=== PATIENT | female | born 1930 | race Caucasian/White ===

== ENCOUNTER 2018-03-22 06:55 | Inpatient (IN) ==
[2018-03-22] MEDS: Sod Chloride 0.9% Inj 1,000 ML IV.CONT SCH ×3 (07:00→22:05)
--- NOTE | 2018-03-22 07:13 | ED ---
HPI General Chief complaint: Stroke Alert Stated complaint: Medical Time Seen by Provider: 03/22/18 06:56 History of Present Illness HPI narrative: patient is an 87 year old female apparently with a history of dementia presents to the Emergency Department as a stroke alert last seen normal last night around midnight. She presented to the emergency department with dense aphasia and right sided deficits with neglect. She is very hypertensive as well. Additional history limited by patient's aphasia. Related Data Home Medications Medication Instructions Recorded Confirmed amlodipine [Norvasc] 2.5 mg PO DAILY 03/22/18 03/22/18 benztropine 0.5 mg PO BID 03/22/18 03/22/18 donepezil 10 mg PO DAILY 03/22/18 03/22/18 furosemide [Lasix] 40 mg PO DAILY 03/22/18 03/22/18 lurasidone [Latuda] 120 mg PO DAILY 03/22/18 03/22/18 melatonin 3 mg PO HS 03/22/18 03/22/18 memantine [Namenda XR] 14 mg PO DAILY 03/22/18 03/22/18 omeprazole 20 mg PO DAILY 03/22/18 03/22/18 potassium chloride [Klor-Con 10] 10 meq PO DAILY 03/22/18 03/22/18 Allergies Allergy/AdvReac Type Severity Reaction Status Date / Time No Known Allergies Allergy Verified 03/22/18 06:59 Review of Systems ROS Unobtainable ROS Unobtainable: unobtainable due to mental condition PMFSH Surgical History Surgical History History of bladder surgery (Acute) Social History Social History Substance History: No History of Abuse Second Hand Smoke Exposure: No Smoking Status: Never smoker How Often Do You Have a Drink Containing Alcohol: Never Recent Travel in [facility] within the Last 8 Weeks: No Recent Out of Country Travel within the Last 8 Weeks: No Exam Narrative Exam Narrative: GENERAL: Well-developed well-nourished female a phasic. SKIN: Focused skin assessment warm/dry. HEAD: Atraumatic. Normocephalic. EYES: Pupils equal and round. No scleral icterus. No injection or drainage. ENT: No nasal bleeding or discharge. Mucous membranes pink and moist. NECK: Trachea midline. No JVD. CARDIOVASCULAR: Regular rate and rhythm. No murmur appreciated. RESPIRATORY: No accessory muscle use. Clear to auscultation. Breath sounds equal bilaterally. GASTROINTESTINAL: Abdomen soft, non-tender, nondistended. Hepatic and splenic margins not palpable. MUSCULOSKELETAL: No obvious deformities. No clubbing. No cyanosis. No edema. NEUROLOGICAL: Awake and I think she is alert and appears to try to communicate when discussing her plan of care. Patient has dense deficits on the right upper and right lower extremity and she has no effort against gravity for either. She is completely a phasic except for some groans. She does follow commands in the left upper and left lower extremity. She certainly seems to make neglecting the right side. She has no gaze palsy, she does have some right -sided facial droop. PSYCHIATRIC: Appropriate mood and affect; insight and judgment normal. Course Initial Documented Vital Signs Temperature 97.8 F 03/22/18 06:56 Pulse Rate 84 03/22/18 06:56 Respiratory Rate 17 03/22/18 06:56 Blood Pressure 200/103 H 03/22/18 06:56 Pulse Oximetry 96 03/22/18 06:56 Last Documented Vital Signs Temperature 97.7 F 03/22/18 07:30 Pulse Rate 89 03/22/18 07:30 Respiratory Rate 18 03/22/18 07:30 Blood Pressure 180/89 H 03/22/18 07:30 Pulse Oximetry 96 03/22/18 07:30 Critical Care Time Critical Care Time: Yes Total Critical Care Time: 35 Attestation: Aggregate critical care time was 35 minutes. Time to perform other separately billable procedures was not included in the critical care time. My time did not include minutes spent treating any other patients simultaneously or on activities that did not directly contribute to the patient's treatment. The services I provided to this patient were to treat and/or prevent clinically significant deterioration that could result in: , disability, organ failure I provided critical care services requiring my management, as noted below: Chart data review, documentation time, medication orders and management, vital sign assessments/reviewing monitor data, ordering and reviewing lab tests, ordering and interpreting/reviewing x-rays and diagnostic studies, care of the patient and discussion of the patient with the admitting physicians. NIH Stroke Scale NIH Stroke Scale Level of Consciousness: 1-Drowsy Orientation Questions: 2-Neither task correct Responds to Commands: 1-One task correct Gaze Eye Movement: 0-Horizontal movement WNL Visual [place]: 0-No visual field defect Facial Movement: 2-Partial facial palsy Motor Functions Arm LEFT: 1-Drift before 10 seconds Motor Functions Arm RIGHT: 3-No effort against gravity Motor Functions Leg LEFT: 1-Drift before 5 seconds Motor Functions Leg RIGHT: 3-No effort against gravity Limb Ataxia: 0-No ataxia Sensory Loss: 0-No sensory loss Best Language: 3-Mute or global aphasia Articulation: 2-Severe dysarthria Extinction or Inattention Sensory: 1-Loss 1 sensory modality Total: 20 Medical Decision Making MDM Narrative Medical decision making narrative: Patient is an 87 year old female presents to the ER, as stroke alert. Patient taken emergently to CT. She has subacute ischemic stroke in the left temporal parietal area c/w symptoms. Unfortunately not a candidate for systemic TPA and d/w Dr. Vega who agrees. Spoke with Dr. Vega at 0750, patient is not a candidate for any intervention currently. There is not enough salvageable area on CT perfusion and she only has distal occlusions. Permissive hypertension per Dr. Vega. WI aspirin added. Will admit to ICU. The patient is an aspiration risk, aspirin 600 mg was given WI, she started on 70 cc an hour of normal saline. Her daughter arrives and I informed her that the patient has had a stroke and will require aggressive physical therapy and occupational therapy and speech therapy. In the short-term I think is reasonable for her to go to the ICU for the night and discussed with Dr. Santos. I do believe she is an aspiration risk. For the time being I think it is in her benefit to not be intubated so that she can continue to be assessed neurologically Shortly after discussion with daughter was noted the patient does have some effort on her right upper extremity at the shoulder but still no structural welder strength at all. Medical Screen Exam Complete: Yes Emergency Medical Condition: Yes Lab Data Result diagrams: 03/22/18 07:00 Lab Results 03/22/18 03/22/18 03/22/18 Range/Units 06:58 07:00 07:00 WBC 14.8 H (4.0-11.0) th/mm3 RBC 4.35 (4.00-5.30) mil/mm3 Hgb 13.1 (11.6-15.3) gm/dL POC Hgb (Calc) (11.6-15.3) g/dL Hct 39.7 (35.0-46.0) % POC Hct (35-46.0) % MCV 91.3 (80.0-100.0) fL MCH 30.2 (27.0-34.0) pg MCHC 33.0 (32.0-36.0) % RDW 13.5 (11.6-17.2) % Plt Count 233 (150-450) th/mm3 MPV 8.5 (7.0-11.0) fL Neut % (Auto) 85.9 H (16.0-70.0) % Lymph % (Auto) 6.4 L (9.0-44.0) % [place] % (Auto) 7.2 (0.0-8.0) % Eos % (Auto) 0.0 (0.0-4.0) % Baso % (Auto) 0.5 (0.0-2.0) % Neut # (Auto) 12.7 H (1.8-7.7) th/mm3 Lymph # (Auto) 0.9 L (1.0-4.8) th/mm3 [place] # (Auto) 1.1 H (0.0-0.9) th/mm3 Eos # (Auto) 0.0 (0.0-0.4) th/mm3 Baso # (Auto) 0.1 (0.0-0.2) th/mm3 WBC Differential . Differential Comment Auto diff final PT 10.3 (9.8-11.6) sec INR 1.0 Ratio APTT 22.6 L (23.4-31.7) sec Fibrinogen 410 H (227-377) mg/dL POC Sodium (137-144) mmol/L POC Potassium (3.6-5.0) mmol/L POC Chloride (102-111) mmol/L POC BUN (5-21) mg/dL POC Creatinine (0.6-1.3) mg/dL POC Glucose 112 H (68-110) mg/dl Total Creatine Kinase (26-192) U/L CK-MB (CK-2) (0.5-3.6) ng/mL CK-MB (CK-2) % (0.0-4.0) % Troponin I (0.02-0.05) ng/mL Blood Type Blood Type Recheck Antibody Screen 03/22/18 03/22/18 Range/Units 07:00 07:00 WBC (4.0-11.0) th/mm3 RBC (4.00-5.30) mil/mm3 Hgb (11.6-15.3) gm/dL POC Hgb (Calc) 13.3 (11.6-15.3) g/dL Hct (35.0-46.0) % POC Hct 39.0 (35-46.0) % MCV (80.0-100.0) fL MCH (27.0-34.0) pg MCHC (32.0-36.0) % RDW (11.6-17.2) % Plt Count (150-450) th/mm3 MPV (7.0-11.0) fL Neut % (Auto) (16.0-70.0) % Lymph % (Auto) (9.0-44.0) % [place] % (Auto) (0.0-8.0) % Eos % (Auto) (0.0-4.0) % Baso % (Auto) (0.0-2.0) % Neut # (Auto) (1.8-7.7) th/mm3 Lymph # (Auto) (1.0-4.8) th/mm3 [place] # (Auto) (0.0-0.9) th/mm3 Eos # (Auto) (0.0-0.4) th/mm3 Baso # (Auto) (0.0-0.2) th/mm3 WBC Differential Differential Comment PT (9.8-11.6) sec INR Ratio APTT (23.4-31.7) sec Fibrinogen (227-377) mg/dL POC Sodium 144 (137-144) mmol/L POC Potassium 4.2 (3.6-5.0) mmol/L POC Chloride 107 (102-111) mmol/L POC BUN 17 (5-21) mg/dL POC Creatinine 1.0 (0.6-1.3) mg/dL POC Glucose 129 H (68-110) mg/dl Total Creatine Kinase 518 H (26-192) U/L CK-MB (CK-2) 7.0 H (0.5-3.6) ng/mL CK-MB (CK-2) % 1.4 (0.0-4.0) % Troponin I 0.06 H (0.02-0.05) ng/mL Blood Type A Negative Blood Type Recheck Required Antibody Screen Negative Imaging Data Radiologist's impression: Chest X-Ray 03/22/18 06:57 CONCLUSION: No evidence of acute cardiopulmonary process. Head CT 03/22/18 06:57 CONCLUSION: 1. Left temporoparietal hypodensity characteristic of a nonhemorrhagic infarct 2. Aging brain with generalized volume loss and chronic ischemic white matter changes. 3. No significant mass effect. Report called by Dr. Stuart to Dr. Fuentes at 720. Head CTA 03/22/18 06:57 CONCLUSION: No evidence of proximal MCA occlusion or filling defect. Report was called by [Dr. Stuart to Dr. Vega at 750. ] Neck CTA 03/22/18 06:57 CONCLUSION: 1. Nearly nondiagnostic CTA examination due to suboptimal contrast administration following infiltration of patient's IV line. 2. There is very minimal atherosclerotic plaque involving the arch and left carotid bulb. The carotid and vertebral arteries appear grossly patent. CT CAD 03/22/18 07:05 CONCLUSION: Physiological brain perfusion parameters with RAPID analysis as above. The decision for consideration of therapy is multi factorial and multi disciplinary relying on subjective and objective clinical data. This data is not construed or intended to be the sole determinant of treatment eligibility. Discharge Plan Discharge Disposition Patient Disposition: ED Admit(ED Internal Use Only) Discharge Order Discharge Orders: ED Use Only Admit Order (Routine); Ordered 03/22/18 Ordered By: Micah Fuentes Discharge Details Diagnosis: Acute ischemic stroke Physicians Team ED Provider: Micah Fuentes Primary Care Provider: Donavon Monsalve Attending Provider: Daniel Santos Other Providers: [facility],Agency Discharge Interventions Interventions: Vital Signs Last Done: 03/22/18 07:30 Discharge Planning - Case Management Last Done: 03/22/18 08:47 Status ED Status: Admitted Patient
[2018-03-22 07:22] LABS: Baso # (Auto) 0.1 th/mm3 (0.0-0.2); Baso % (Auto) 0.5 % (0.0-2.0); Hematocrit 39.7 % (35.0-46.0); Hemoglobin 13.1 gm/dL (11.6-15.3); Lymph # (Auto) 0.9 th/mm3 (1.0-4.8); Lymph % (Auto) 6.4 % (9.0-44.0); Mean Corpuscular Hemoglobin 30.2 pg (27.0-34.0); Mean Corpuscular Volume 91.3 fL (80.0-100.0); Mean Platelet Volume 8.5 fL (7.0-11.0); Mono # (Auto) 1.1 th/mm3 (0.0-0.9); Mono % (Auto) 7.2 % (0.0-8.0); Neut # (Auto) 12.7 th/mm3 (1.8-7.7); Neut % (Auto) 85.9 % (16.0-70.0); Platelet Count 233 th/mm3 (150-450); Red Blood Count 4.35 mil/mm3 (4.00-5.30); Red Cell Distribution Width 13.5 % (11.6-17.2); White Blood Count 14.8 th/mm3 (4.0-11.0)
--- NOTE | 2018-03-22 07:27 | CT ---
EXAM DATE: 03/22/2018 7:12 AM EST AGE/SEX: 87 years / Female INDICATIONS: Stroke alert, right side weakness, aphasia. CLINICAL DATA: This is the patient's initial encounter. Patient reports that signs and symptoms have been present for 1 day and indicates a pain score of Nonresponsive. MEDICAL/SURGICAL HISTORY: Non-responsive. Non-responsive. RADIATION DOSE: 56.35 CTDI (mGy) COMPARISON: [facility], CTA HEAD W CONTRAST W 3D, 03/22/2018. . TECHNIQUE: CT of the head without contrast. Using automated exposure control and adjustment of the mA and/or kV according to patient size, radiation dose was kept as low as reasonably achievable to ob tain optimal diagnostic quality images. DICOM format image data is available electronically for revi ew and comparison. FINDINGS: Cerebrum: A moderate sized to large area of hypodensity has developed within the left temporoparieta l region. There is sulcal effacement but no other significant mass effect. There is no evidence of ac carol hemorrhage. Periventricular hypodensity is seen bilaterally throughout the cerebral hemispheres. Generalized volume loss characteristic of an aging brain is noted. Posterior Fossa: The cerebellum and brainstem are intact. The 4th ventricle is midline. The cerebe llopontine angle is unremarkable. Extracranial: The visualized portion of the orbits is intact. Skull: The calvaria is intact. No evidence of skull fracture. CONCLUSION: 1. Left temporoparietal hypodensity characteristic of a nonhemorrhagic infarct 2. Aging brain with generalized volume loss and chronic ischemic white matter changes. 3. No significant mass effect. Report called by Dr. Stuart to Dr. Fuentes at 720. Electronically signed by: Chance Stuart MD 03/22/2018 7:26 AM EST
[2018-03-22 07:37] LABS: Activated Partial Thrombo Time 22.6 sec (23.4-31.7)
[2018-03-22 07:40] LABS: Prothrombin Time 10.3 sec (9.8-11.6)
[2018-03-22 07:41] LABS: Troponin I 0.06 ng/mL (0.02-0.05)
--- NOTE | 2018-03-22 07:45 | CT ---
EXAM DATE: 03/22/2018 7:29 AM EST AGE/SEX: 87 years / Female INDICATIONS: Stroke alert, right side weakness, aphasia. CLINICAL DATA: This is the patient's initial encounter. Patient reports that signs and symptoms have been present for 1 day and indicates a pain score of Nonresponsive. MEDICAL/SURGICAL HISTORY: Non-responsive. Non-responsive. RADIATION DOSE: 217.64 CTDI (mGy) COMPARISON: [facility] [place]/O CONTRAST, 03/22/2018. . TECHNIQUE: CT of the head after intravenous administration of 40 ml Visipaque 320 (iodixanol) nonio chely water-soluble contrast as a single exam dose. Using automated exposure control and adjustment of the mA and/or kV according to patient size, radiation dose was kept as low as reasonably achievable to obtain optimal diagnostic quality images. DICOM format image data is available electronically for review and comparison. FINDINGS: 1. CBF (<30%) Volume (ml): 14ml 2. Perfusion (Tmax>6.0s) Volume (ml): 30ml 3. Mismatch Volume (ml) (Tmax>6.0 - CBF): 16ml CONCLUSION: Physiological brain perfusion parameters with RAPID analysis as above. The decision for consideration of therapy is multi factorial and multi disciplinary relying on subjec tive and objective clinical data. This data is not construed or intended to be the sole determinant of treatment eligibility. Electronically signed by: Chance Stuart MD 03/22/2018 7:44 AM EST
[2018-03-22 07:53] LABS: CKMB Percent 1.4 % (0.0-4.0)
--- NOTE | 2018-03-22 07:53 | CT ---
EXAM DATE: 03/22/2018 7:35 AM EST AGE/SEX: 87 years / Female INDICATIONS: Stroke alert, right side weakness, aphasia. CLINICAL DATA: This is the patient's initial encounter. Patient reports that signs and symptoms have been present for 1 day and indicates a pain score of 10/10. MEDICAL/SURGICAL HISTORY: Non-responsive. Non-responsive. RADIATION DOSE: 9.64 CTDI (mGy) ; Combined studies COMPARISON: No prior exams available for comparison. TECHNIQUE: Volumetric scanning was performed using a multirow detector CT scanner during bolus infus ion of 60 ml Visipaque 320 (iodixanol) nonionic water-soluble contrast as a cumulative dose for mult iple exams. The data was postprocessed with a variety of visualization algorithms including full-vo lume maximum intensity projection, multiplanar sliding thin-slab reformation, curved-planar reformati on, and surface-rendering techniques. Using automated exposure control and adjustment of the mA and/ or kV according to patient size, radiation dose was kept as low as reasonably achievable to obtain op timal diagnostic quality images. DICOM format image data is available electronically for review and comparison. Percent stenosis is calculated using the diameter of the stenotic region over the diameter of the nor mal distal internal carotid artery. FINDINGS: Patient's IV line infiltrated resulting in very limited IV contrast administration and nearly nondiag nostic arterial opacification. There is standard 3 vessel arch anatomy with minimal calcified plaque in the arch and origin of the left subclavian artery. Overall, there is very limited calcified plaque primarily in the left carotid bulb. The carotid arteries appear grossly patent. Similarly, the verte bral arteries appear grossly patent without significant atherosclerotic plaque. Scattered subcentimet er level 2 and 3 nodes without necrotic adenopathy. Thyroid appears unremarkable by CT. Visualized joss ng apices demonstrate senescent changes without significant focal abnormality. Multilevel degenerativ e spondylosis of the lower cervical spine without significant focal lytic or blastic bony lesions. CONCLUSION: 1. Nearly nondiagnostic CTA examination due to suboptimal contrast administration following infiltra tion of patient's IV line. 2. There is very minimal atherosclerotic plaque involving the arch and left carotid bulb. The caroti d and vertebral arteries appear grossly patent. Electronically signed by: Gus Glover MD 03/22/2018 7:51 AM EST
--- NOTE | 2018-03-22 07:53 | CT ---
EXAM DATE: 03/22/2018 7:33 AM EST AGE/SEX: 87 years / Female INDICATIONS: Stroke alert, right side weakness, aphasia. CLINICAL DATA: This is the patient's initial encounter. Patient reports that signs and symptoms have been present for 1 day and indicates a pain score of Nonresponsive. MEDICAL/SURGICAL HISTORY: Non-responsive. Non-responsive. RADIATION DOSE: 9.64 CTDI (mGy) ; Combined studies COMPARISON: [facility] – [place], CT HEAD W/O CONTRAST, 03/22/2018. . TECHNIQUE: Volumetric scanning was performed using a multi-row detector CT scanner during bolus infu jose of 60 ml Visipaque 320 (iodixanol) nonionic water-soluble contrast as a single exam dose. The data was post processed with a variety of visualization algorithms including full volume maximum int ensity projection, multi-planar sliding thin slab reformation, curved planar reformation, and surface rendering techniques. Using automated exposure control and adjustment of the mA and/or kV according to patient size, radiation dose was kept as low as reasonably achievable to obtain optimal diagnosti c quality images. DICOM format image data is available electronically for review and comparison. FINDINGS: There is suboptimal visualization of the major intracranial arteries out to the second-order branch v essels due to IV infiltration. The proximal vessel are satisfactorily visualized. There is no evidenc e of proximal MCA occlusion or filling defect. Asymmetry is identified in the M2 and M3 branches with decreased flow identified on the left. CONCLUSION: No evidence of proximal MCA occlusion or filling defect. Report was called by [Dr. Stuart to Dr. Vega at 750. ] Electronically signed by: Chance Stuart MD 03/22/2018 7:52 AM EST
--- NOTE | 2018-03-22 08:17 | XR ---
EXAM DATE: 03/22/2018 8:14 AM EST AGE/SEX: 87 years / Female INDICATIONS: Stroke alert. CLINICAL DATA: This is the patient's initial encounter. Patient reports that signs and symptoms have been present for 1 day and indicates a pain score of Nonresponsive. MEDICAL/SURGICAL HISTORY: Non-responsive. Non-responsive. COMPARISON: No prior exams available for comparison. FINDINGS: A single AP view of the chest demonstrates the lungs to be symmetrically aerated without evidence of mass, infiltrate or effusion. The cardiomediastinal contours are unremarkable. Osseous structures a re intact. CONCLUSION: No evidence of acute cardiopulmonary process. Electronically signed by: Chance Stuart MD 03/22/2018 8:16 AM EST
[2018-03-22] MEDS ORDERED: Aspirin 300 MG Supp RECTAL ONE (08:30)
[2018-03-22] MEDS ORDERED: Bisacodyl 10 MG Supp RECTAL PRN (08:30)
[2018-03-22 09:20] LABS: Bilirubin,Urine Negative (Negative); Calcium Oxalate Crystals,Urine Few /hpf; Clarity,Urine Hazy (Clear); Color,Urine Yellow (Yellw/Straw); Glucose,Urine (UA) Negative (Negative); Hyaline Casts,Urine 1 /lpf (0-3); Leukocyte Esterase,Urine Negative (Negative); Mucus,Urine Few /lpf (Occasional); Nitrite,Urine Negative (Negative); Specific Gravity,Urine 1.034 (1.002-1.035)
[2018-03-22 09:33] LABS: Amphetamine Screen,Urine Neg (Neg); Barbiturate Screen,Urine Neg (Neg); Cannabinoid Screen,Urine Neg (Neg); Cocaine Screen,Urine Neg (Neg)
--- NOTE | 2018-03-22 09:33 | P.HPCC ---
History of Present Illness Service: Critical care Primary Care Physician: Donavon Monsalve DO Chief Complaint: Acute right-sided weakness and aphasia History of Present Illness: The patient is an 87 year old female with past medical history significant for history of dementia, Parkinson's disease, hypertension, hypothyroidism who presented to the Emergency Department as a stroke alert. Patient was last seen normal around midnight. Presented with complaints of aphasia and right hemiparesis. A stat CT of the head showed Left temporoparietal hypodensity indicating ischemic infarct. CT perfusion study and CT angiograms of head and neck were unremarkable. Patient was out of TPA window. Neurology Dr. Vega was consulted who recommended conservative management with aspirin and permissive hypertension. I evaluated the patient in the emergency department. Daughter is at the bedside. Patient is unable to give much history. She is aphasic at this time protecting airway however mental status is somewhat concerning. Patient continues to have right hemiparesis. I encouraged daughter to consider the DNR. Patient has a living will stating no life prolonging measures in case of a terminal condition. Given her dementia and limited mobility the stroke could be terminal for her. I have also consulted palliative care to assist with goals of care - Diagnosis (1) Right hemiparesis (2) Aphasia (3) Leukocytosis (4) Parkinson disease (5) Dementia (6) Hypertension (7) Schizophrenia (8) Hypothyroidism Inpatient Certification: I certify that the inpatient services were ordered in accordance with Medicare regulations governing the order. This includes certification that hospital inpatient services are reasonable and necessary and in the case of services not specified as inpatient-only under 42 CFR 419.22(n), that they are appropriately provided as inpatient services in accordance to with the 2-midnight benchmark under 43 CFR 412.3(e) Estimated Total Length of Stay (Days): 5 Plans for Post Hospital Care: Not yet determined Review of Systems unobtainable due to mental condition PMFSH - History History Provided By: Family Member - Medical History Medical History: Medical History (Last Reviewed 03/22/18 @ 09:23 by Daniel Santos MD) Dementia GERD (gastroesophageal reflux disease) HBP (high blood pressure) Hypothyroidism Parkinson disease Schizophrenia - Surgical History Surgical History: Surgical History (Last Updated 03/22/18 @ 08:06 by Shruti Young) History of bladder surgery - Tobacco History Second Hand Smoke Exposure: No Tobacco Use In Past 30 Days: No Smoking Status: Never smoker - Alcohol History How Often Do You Have a Drink Containing Alcohol: Never - Substance Use History Substance History: No History of Abuse - Travel History Recent Travel in the [place] Within the Last 8 Weeks: No Recent Travel Out of the Country Within the Last 8 Weeks: No - Immunization History Tetanus Immunization: >5 Years Medications and Allergies Active Medications: Active Medications Albuterol (Duoneb Neb (Prn)) 1 ampul NEB Q2HR NEB PRN PRN Reason: WHEEZING Bisacodyl (Dulcolax Supp) 10 mg RECTAL DAILY PRN PRN Reason: SEVERE CONSITIPATION Chlorhexidine Gluconate (Chlorhexidine 2% Cloth) 3 pack TOPICAL DAILY@0400 HARSH Stop: 03/28/18 03:59 Chlorhexidine Gluconate (Chlorhexidine 2% Cloth) 3 pack TOPICAL DAILY@0400 PRN PRN Reason: Extra cloth needed Stop: 03/28/18 03:59 Famotidine (Pepcid Pf Inj) 20 mg IV.PUSH Q12HR HARSH Sodium Chloride (Ns Inj) 1,000 mls @ 70 mls/hr IV.CONT .[id number] HARSH Last Admin: 03/22/18 07:00 Dose: 70 mls/hr Sodium Chloride (Ns Flush) 2 ml IV.FLUSH BID HARSH Sodium Chloride (Ns Flush) 2 ml IV.FLUSH PRN PRN PRN Reason: FLUSH AFTER USING IV ACCESS Allergies Allergy/AdvReac Type Severity Reaction Status Date / Time No Known Allergies Allergy Verified 03/22/18 06:59 Home Medications Medication Instructions Recorded Confirmed Type amlodipine [Norvasc] 2.5 mg PO DAILY 03/22/18 03/22/18 History benztropine 0.5 mg PO BID 03/22/18 03/22/18 History donepezil 10 mg PO DAILY 03/22/18 03/22/18 History furosemide [Lasix] 40 mg PO DAILY 03/22/18 03/22/18 History lurasidone [Latuda] 120 mg PO DAILY 03/22/18 03/22/18 History melatonin 3 mg PO HS 03/22/18 03/22/18 History memantine [Namenda XR] 14 mg PO DAILY 03/22/18 03/22/18 History omeprazole 20 mg PO DAILY 03/22/18 03/22/18 History potassium chloride [Klor-Con 10] 10 meq PO DAILY 03/22/18 03/22/18 History Results - Labs CBC & Chem 7: 03/22/18 07:00 Labs: Short CBC 03/22/18 Range/Units 07:00 WBC 14.8 H (4.0-11.0) th/mm3 Hgb 13.1 (11.6-15.3) gm/dL Hct 39.7 (35.0-46.0) % Plt Count 233 (150-450) th/mm3 Cardiac Enzymes 03/22/18 Range/Units 07:00 Total Creatine Kinase 518 H (26-192) U/L CK-MB (CK-2) 7.0 H (0.5-3.6) ng/mL Troponin I 0.06 H (0.02-0.05) ng/mL - Imaging Impressions Chest X-Ray 03/22/18 06:57 CONCLUSION: No evidence of acute cardiopulmonary process. Head CT 03/22/18 06:57 CONCLUSION: 1. Left temporoparietal hypodensity characteristic of a nonhemorrhagic infarct 2. Aging brain with generalized volume loss and chronic ischemic white matter changes. 3. No significant mass effect. Report called by Dr. Stuart to Dr. Fuentes at 720. Head CTA 03/22/18 06:57 CONCLUSION: No evidence of proximal MCA occlusion or filling defect. Report was called by [Dr. Stuart to Dr. Vega at 750. ] Neck CTA 03/22/18 06:57 CONCLUSION: 1. Nearly nondiagnostic CTA examination due to suboptimal contrast administration following infiltration of patient's IV line. 2. There is very minimal atherosclerotic plaque involving the arch and left carotid bulb. The carotid and vertebral arteries appear grossly patent. CT CAD 03/22/18 07:05 CONCLUSION: Physiological brain perfusion parameters with RAPID analysis as above. The decision for consideration of therapy is multi factorial and multi disciplinary relying on subjective and objective clinical data. This data is not construed or intended to be the sole determinant of treatment eligibility. Exam Vital signs: Vital Signs 03/22/18 06:56 03/22/18 06:57 03/22/18 07:30 Temperature 97.8 F 97.7 F Pulse Rate 84 89 89 Respiratory Rate 17 18 Blood Pressure 200/103 H 180/89 H Pulse Oximetry 96 96 96 03/22/18 08:31 Temperature 97.8 F Pulse Rate 81 Respiratory Rate 16 Blood Pressure 189/99 H Pulse Oximetry 96 Intake & Output 03/21/18 03/22/18 03/22/18 18:59 06:59 18:59 Weight 72.4 kg Narrative: GENERAL: Well-developed well-nourished female aphasic with right hemiparesis, moderate distress SKIN: skin warm/dry. HEAD: Atraumatic. Normocephalic. EYES: Pupils equal and round. No scleral icterus. ENT: No nasal bleeding or discharge. Mucous membranes dry NECK: Trachea midline. No JVD. CARDIOVASCULAR: Regular rate and rhythm. No murmur appreciated. RESPIRATORY: No accessory muscle use. Clear to auscultation. Breath sounds equal bilaterally. GASTROINTESTINAL: Abdomen soft, non-tender, nondistended. Hepatic and splenic margins not palpable. MUSCULOSKELETAL: No obvious deformities. No clubbing. No cyanosis. No edema. NEUROLOGICAL: Patient is awake alert follows some commands. Remains aphasic. Significant right-sided weakness no movement against gravity 3 out of 5 power upper and lower extremities. Unable to test sensation. Right-sided facial droop present along with right-sided neglect Septic Shock Reassessment Septic shock perfusion: reassessment completed Caprini VTE Risk Assessment Caprini VTE Risk Assessment: Moderate/High Risk (score >= 2) VTE Pharmacological Exception Reason: High risk for bleeding Caprini Risk Assessment Model: Point Value = 1 Point Value = 2 Point Value = 3 Point Value = 5 Age 41-60 Minor surgery BMI > 25 kg/m2 Swollen legs Varicose veins or History of unexplained or recurrent spontaneous Oral contraceptives or hormone replacement Sepsis (< 1 month) Serious lung disease, including pneumonia (< 1 month) Abnormal pulmonary function Acute myocardial infarction Congestive heart failure (< 1 month) History of inflammatory bowel disease Medical patient at bed rest Age 61-74 Arthroscopic surgery Major open surgery (> 45 min) Laparoscopic surgery (> 45 min) Malignancy Confined to bed (> 72 hours) Immobilizing plaster cast Central venous access Age >= 75 History of VTE Family history of VTE Factor V Leiden Prothrombin [id number] Lupus anticoagulant Anticardiolipin antibodies Elevated serum homocysteine Heparin-induced thrombocytopenia Other congenital or acquired thrombophilia Stroke (< 1 month) Elective arthroplasty Hip, pelvis, or leg fracture Acute spinal cord injury (< 1 month) Prophylaxis Regimen: Total Risk Factor Score Risk Level Prophylaxis Regimen 0-1 Low Early ambulation 2 Moderate Order ONE of the following: *Sequential Compression Device (SCD) *Heparin 5000 units SQ BID 3-4 Higher Order ONE of the following medications: *Heparin 5000 units SQ TID *Enoxaparin/Lovenox 40 mg SQ daily (WT < 150 kg, CrCl > 30 mL/min) *Enoxaparin/Lovenox 30 mg SQ daily (WT < 150 kg, CrCl > 10-29 mL/min) *Enoxaparin/Lovenox 30 mg SQ BID (WT < 150 kg, CrCl > 30 mL/min) AND/OR *Sequential Compression Device (SCD) 5 or more Highest Order ONE of the following medications: *Heparin 5000 units SQ TID (Preferred with Epidurals) *Enoxaparin/Lovenox 40 mg SQ daily (WT < 150 kg, CrCl > 30 mL/min) *Enoxaparin/Lovenox 30 mg SQ daily (WT < 150 kg, CrCl > 10-29 mL/min) *Enoxaparin/Lovenox 30 mg SQ BID (WT < 150 kg, CrCl > 30 mL/min) AND *Sequential Compression Device (SCD) Assessment and Plan - Problem List (1) Right hemiparesis Code(s): G81.91 - Hemiplegia, unspecified affecting right dominant side Status : Acute (2) Aphasia Code(s): R47.01 - Aphasia Status: Acute (3) Leukocytosis Code(s): D72.829 - Elevated white blood cell count, unspecified Status: Acute (4) Parkinson disease Code(s): G20 - Parkinson's disease Status: Chronic (5) Dementia Code(s): F03.90 - Unspecified dementia without behavioral disturbance Status: Chronic (6) Hypertension Code(s): I10 - Essential (primary) hypertension Status: Chronic (7) Schizophrenia Code(s): F20.9 - Schizophrenia, unspecified Status: Chronic (8) Hypothyroidism Code(s): E03.9 - Hypothyroidism, unspecified Status: Chronic - Assessment and Plan Plan: A/P NEURO: Acute left temporoparietal ischemic stroke Aphasia Right hemiparesis Dementia Parkinson's disease -CT head shows acute left temporoparietal stroke. Out of TPA window -CT perfusion study and CT angiogram unremarkable -Continue conservative management with permissive hypertension rectal aspirin -Start statins once p.o. intake permitted -Check 2D echo, check TSH, B12 -Neurology consulted -PT/OT/speech consulted RESP: Respiratory insufficiency -Watch closely for airway protection -DuoNeb every 2 hours as needed -Aggressive pulmonary toilet CV: Uncontrolled hypertension -Initial blood pressure on arrival was 200/103. However permit hypertension up to 220/105 for cerebral perfusion -Normal saline IV fluids, 2d echo, serial troponin -Initiate statins once p.o. permitted GI: -N.p.o., IV famotidine -Speech eval : -Monitor renal function closely. ID: -No antibiotics -Follow-up UA HEME: -Monitor CBC, coags ENDO: -Electrolyte replacement per protocol PROPH: -Bilateral lower extremity SCDs. Avoid chemical DVT prophylaxis due to risk of hemorrhagic conversion -IV famotidine LINES: -Utilize peripheral IVs, central line if needed CC time 35 min Patient is critically well with acute large left temporoparietal stroke with aphasia and right-sided hemiplegia. Airway protection is a concern. Even though breathing comfortably at this point. I have encouraged daughter to consider DNR status according to her living will. I have consulted palliative care to assist with decision-making. Admit to ICU continue close neuro monitoring due to high risk of deterioration and Code Status: Full
[2018-03-22 09:35] LABS: Opiate Screen,Urine Neg (Neg)
[2018-03-22] MEDS: Famotidine PF Inj 20 MG/2 ML Vial IV.PUSH SCH ×2 (11:02→20:06)
--- NOTE | 2018-03-22 11:13 | P.CONPAL ---
Consult Service: Palliative Care Requesting Physician: Daniel Santos Reason for Consult: a. To assist with evaluation and management of symptoms including: b. To assist medical decision maker(s) with: better understanding of current medical conditions; weighing benefits/burdens of medical treatment options; making medical treatment decisions. Primary Care Provider: Donavon Monsalve DO History of Present Illness History of Present Illness: To to the ED on 03/22/18 as a stroke alert. She has known history of dementia, reported last seen normal overnight around midnight. She is reported with aphasia, right-sided deficit, as well as hypertensive. * She went emergently for CT brain, findings of subacute ischemic stroke left temporal parietal area, not a candidate for systemic TPA, discussed with neurology. There is not enough salvageable area on CT perfusion she only has distal occlusions per ED discussion with neurology. Permissive hypertension per neurology, aspirin added. She was admitted to the ICU. Patient daughter arrived to ED physician notes discussion with daughter. Concern of aspiration risk though maintaining airway currently. Significant right hemiparesis. * Critical care with concerns of underlying dementia and limited mobility, condition could be terminal. Critical care notes discussion with patient daughter upon review of living will which states no life prolonging measures in the case of a terminal condition. Critical care discussed consideration of DNR for the patient with daughter. Palliative care was consulted to assist with clarification of goals of medical treatment. * Daughter present reports that patient sometimes coughs when she eats something dry. Other notes decreased strength, limited ability to follow all directions for exam. Severely dysarthric speech. Pocketing, oral residuals noted. Decreased oral awareness and perception. No overt signs or symptoms of aspiration, HOWEVER; PT AT HIGH RISK FOR ASPIRATION. Recommends NPO. Pt seen in room, dtr Stephanie at bedside. PT is awake, looking around, non verbal. Some purposeful actions, trying to get up restless at times, throws a roll of tape when I place in her hands. Seems to calm when her daughter soothes her. Does not follow any commands for me. Moves spontaneously, notably weaker MAKAYLA LL. Explore w dtr pt psychosocial history, recent cognitive, functional status. Explore with her possible trajectories, complications and paths going forward post significant CVA. Explore with her underlying medical history ( schizophrenia, dementia, Parkinson's )and how this may affect rehabilitation efforts. Explore with her current treatments in place, the primarily treatment following CVA when not a candidate for TPA is supportive care, various methods of monitoring and supportive care provided. 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 Prior to that lived at home w dtr who was primary CG, also went to adult daycare. Requires assist for all ADls, incontinent.Ambulatory. Was still verbal , recognized family. Not able to make her needs known. no longer participative in social events at [place]. Review of Systems unobtainable due to mental status, other (hx dementia, poor historian ) Neurologic: Reports abnormal speech, Reports confusion, Reports localized weakness Psychiatric: Reports anxiety (per daughter, hx of), Reports confusion, Reports irritability, Reports paranoia PMFSH - History History Provided By: Family Member - Medical History Medical History: Medical History (Last Reviewed 03/22/18 @ 09:52 by Gregg Ritter) Dementia GERD (gastroesophageal reflux disease) HBP (high blood pressure) Hypothyroidism Parkinson disease Schizophrenia - Surgical History Surgical History: Surgical History (Last Reviewed 03/22/18 @ 09:52 by Gregg Ritter) History of bladder surgery - Tobacco History Second Hand Smoke Exposure: No Tobacco Use In Past 30 Days: No Smoking Status: Never smoker - Alcohol History How Often Do You Have a Drink Containing Alcohol: Never - Substance Use History Substance History: No History of Abuse - Travel History Recent Travel in the [place] Within the Last 8 Weeks: No Recent Travel Out of the Country Within the Last 8 Weeks: No - Immunization History Tetanus Immunization: >5 Years Medications and Allergies Active Medications: Active Medications Albuterol (Duoneb Neb (Prn)) 1 ampul NEB Q2HR NEB PRN PRN Reason: WHEEZING Bisacodyl (Dulcolax Supp) 10 mg RECTAL DAILY PRN PRN Reason: SEVERE CONSITIPATION Chlorhexidine Gluconate (Chlorhexidine 2% Cloth) 3 pack TOPICAL DAILY@0400 HARSH Stop: 03/28/18 03:59 Chlorhexidine Gluconate (Chlorhexidine 2% Cloth) 3 pack TOPICAL DAILY@0400 PRN PRN Reason: Extra cloth needed Stop: 03/28/18 03:59 Famotidine (Pepcid Pf Inj) 20 mg IV.PUSH Q12HR HARSH Sodium Chloride (Ns Inj) 1,000 mls @ 70 mls/hr IV.CONT .[id number] HARSH Last Admin: 03/22/18 07:00 Dose: 70 mls/hr Sodium Chloride (Ns Flush) 2 ml IV.FLUSH BID [facility] Last Admin: 03/22/18 10:20 Dose: Not Given Sodium Chloride (Ns Flush) 2 ml IV.FLUSH PRN PRN PRN Reason: FLUSH AFTER USING IV ACCESS Allergies Allergy/AdvReac Type Severity Reaction Status Date / Time No Known Allergies Allergy Verified 03/22/18 06:59 Home Medications Medication Instructions Recorded Confirmed Type amlodipine [Norvasc] 2.5 mg PO DAILY 03/22/18 03/22/18 History benztropine 0.5 mg PO BID 03/22/18 03/22/18 History donepezil 10 mg PO DAILY 03/22/18 03/22/18 History furosemide [Lasix] 40 mg PO DAILY 03/22/18 03/22/18 History lurasidone [Latuda] 120 mg PO DAILY 03/22/18 03/22/18 History melatonin 3 mg PO HS 03/22/18 03/22/18 History memantine [Namenda XR] 14 mg PO DAILY 03/22/18 03/22/18 History omeprazole 20 mg PO DAILY 03/22/18 03/22/18 History potassium chloride [Klor-Con 10] 10 meq PO DAILY 03/22/18 03/22/18 History Advance Directives Living Will: Yes Healthcare Surrogate: Yes Power of Senior Solutions Architect: Yes Documented care wishes: Living will documents in standard verbiage in the presence of terminal, end- stage, or vegetative condition would not want artificially prolonging measures but would want comfort only. Ethical and Legal Issues: Patient is not capacitated secondary to underlying history of dementia, schizophrenia. Now here with acute stroke. daughter Stephanie has documentation naming her as healthcare surrogate, patient also has living will stating that in the presence of terminal, end-stage or vegetative condition would not want heroic or artificially prolonging measures. Physical Exam Vital Signs: Vital Signs - 24 hr 03/22/18 06:56 03/22/18 06:57 03/22/18 07:30 Temperature 97.8 F 97.7 F Pulse Rate 84 89 89 Respiratory Rate 17 18 Blood Pressure 200/103 H 180/89 H Pulse Oximetry 96 96 96 12/13/18 08:31 03/22/18 09:40 Temperature 97.8 F 97.9 F Pulse Rate 81 83 Respiratory Rate 16 16 Blood Pressure 189/99 H 182/89 H Pulse Oximetry 96 97 I&O: Intake & Output 03/20/18 03/21/18 03/22/18 03/23/18 06:59 06:59 06:59 06:59 Weight 72.4 kg Physical Exam: CONSTITUTIONAL/GENERAL: This is an adequately nourished patient, alert, restless at times TUBES/LINES/DRAINS: Peripheral IV right upper extremity, SCDs SKIN: No jaundice, rashes, or lesions. Few areas of ecchymosis to arms. No wounds seen anteriorly. Skin warm and dry. HEAD: Atraumatic. Normocephalic. EYES: Pupils equal and round and reactive. Extraocular motions intact. No scleral icterus. No injection or drainage. Fundi not examined. ENT: Nose without bleeding or purulent drainage. Throat without visible erythema, exudates, masses, or lesions. Edentulous. NECK: Trachea midline. Supple, nontender. No palpable thyroid enlargement or nodularity. CARDIOVASCULAR: Regular rate and rhythm without murmur. No JVD. Peripheral pulses symmetric. Trace pedal edema. RESPIRATORY/CHEST: Symmetric, unlabored respirations. Clear to auscultation. Breath sounds equal bilaterally. No wheezes, rales, or rhonchi. GASTROINTESTINAL: Abdomen soft, non-tender, nondistended. No palpable masses. No guarding. Bowel sounds present. GENITOURINARY: Without palpable bladder distension. Adult brief in place. MUSCULOSKELETAL: Extremities without clubbing, cyanosis,. Trace pedal edema peer no joint tenderness or effusion noted. No calf tenderness. No mottling or clubbing. LYMPHATICS: No palpable cervical or supraclavicular adenopathy. NEUROLOGICAL: Awake and alert. Nonverbal. May be intermittently tracking though difficult to assess. Does not follow any commands. Does not attempt to verbalize. Does move left upper and lower stronger than right upper and lower. Left upper does appear purposeful. PSYCHIATRIC: Mildly restless at times. Diagnostic Tests Laboratory: Laboratory Results - last 72 hr 03/22/18 03/22/18 03/22/18 06:58 07:00 07:00 WBC 14.8 H RBC 4.35 Hgb 13.1 POC Hgb (Calc) Hct 39.7 POC Hct MCV 91.3 MCH 30.2 MCHC 33.0 RDW 13.5 Plt Count 233 MPV 8.5 Neut % (Auto) 85.9 H Lymph % (Auto) 6.4 L Cotton % (Auto) 7.2 Eos % (Auto) 0.0 Baso % (Auto) 0.5 Neut # (Auto) 12.7 H Lymph # (Auto) 0.9 L Cotton # (Auto) 1.1 H Eos # (Auto) 0.0 Baso # (Auto) 0.1 WBC Differential . Differential Comment Auto diff final PT 10.3 INR 1.0 APTT 22.6 L Fibrinogen 410 H POC Sodium POC Potassium POC Chloride POC BUN POC Creatinine POC Glucose 112 H Total Creatine Kinase CK-MB (CK-2) CK-MB (CK-2) % Troponin I Urine Color Urine Clarity Urine pH Ur Specific Stratham Urine Protein Urine Glucose (UA) Urine Ketones Urine Occult Blood Urine Nitrate Urine Bilirubin Urine Urobilinogen Ur Leukocyte Esterase Urine RBC Urine WBC Calcium Oxalate Crystal Hyaline Casts Granular Casts Urine Mucus Micro UA Comment Ur Microscopic Review Urine Culture Comments Urine Opiates Screen Ur Barbiturates Screen Ur Amphetamines Screen U Benzodiazepines Scrn Urine Cocaine Screen U Cannabinoids Screen Blood Type Blood Type Recheck Antibody Screen 03/22/18 03/22/18 03/22/18 07:00 07:00 07:50 WBC RBC Hgb POC Hgb (Calc) 13.3 Hct POC Hct 39.0 MCV MCH MCHC RDW Plt Count MPV Neut % (Auto) Lymph % (Auto) Cotton % (Auto) Eos % (Auto) Baso % (Auto) Neut # (Auto) Lymph # (Auto) Cotton # (Auto) Eos # (Auto) Baso # (Auto) WBC Differential Differential Comment PT INR APTT Fibrinogen POC Sodium 144 POC Potassium 4.2 POC Chloride 107 POC BUN 17 POC Creatinine 1.0 POC Glucose 129 H Total Creatine Kinase 518 H CK-MB (CK-2) 7.0 H CK-MB (CK-2) % 1.4 Troponin I 0.06 H Urine Color Urine Clarity Urine pH Ur Specific Stratham Urine Protein Urine Glucose (UA) Urine Ketones Urine Occult Blood Urine Nitrate Urine Bilirubin Urine Urobilinogen Ur Leukocyte Esterase Urine RBC Urine WBC Calcium Oxalate Crystal Hyaline Casts Granular Casts Urine Mucus Micro UA Comment Ur Microscopic Review Urine Culture Comments Urine Opiates Screen Neg Ur Barbiturates Screen Neg Ur Amphetamines Screen Neg U Benzodiazepines Scrn Neg Urine Cocaine Screen Neg U Cannabinoids Screen Neg Blood Type A Negative Blood Type Recheck Required Antibody Screen Negative 03/22/18 07:50 WBC RBC Hgb POC Hgb (Calc) Hct POC Hct MCV MCH MCHC RDW Plt Count MPV Neut % (Auto) Lymph % (Auto) Cotton % (Auto) Eos % (Auto) Baso % (Auto) Neut # (Auto) Lymph # (Auto) Cotton # (Auto) Eos # (Auto) Baso # (Auto) WBC Differential Differential Comment PT INR APTT Fibrinogen POC Sodium POC Potassium POC Chloride POC BUN POC Creatinine POC Glucose Total Creatine Kinase CK-MB (CK-2) CK-MB (CK-2) % Troponin I Urine Color Yellow Urine Clarity Hazy H Urine pH 6.0 Ur Specific Stratham 1.034 Urine Protein Negative Urine Glucose (UA) Negative Urine Ketones Negative Urine Occult Blood Negative Urine Nitrate Negative Urine Bilirubin Negative Urine Urobilinogen Less than 2 Ur Leukocyte Esterase Negative Urine RBC 5 H Urine WBC 2 Calcium Oxalate Crystal Few H Hyaline Casts 1 Granular Casts 1 Urine Mucus Few H Micro UA Comment Culture not ind Ur Microscopic Review Not Reportable Urine Culture Comments Culture not ind Urine Opiates Screen Ur Barbiturates Screen Ur Amphetamines Screen U Benzodiazepines Scrn Urine Cocaine Screen U Cannabinoids Screen Blood Type Blood Type Recheck Antibody Screen Result Diagrams: 03/22/18 07:00 Imaging: Impressions Chest X-Ray 03/22/18 06:57 CONCLUSION: No evidence of acute cardiopulmonary process. Head CT 03/22/18 06:57 CONCLUSION: 1. Left temporoparietal hypodensity characteristic of a nonhemorrhagic infarct 2. Aging brain with generalized volume loss and chronic ischemic white matter changes. 3. No significant mass effect. Report called by Dr. Stuart to Dr. Fuentes at 720. Head CTA 03/22/18 06:57 CONCLUSION: No evidence of proximal MCA occlusion or filling defect. Report was called by [Dr. Stuart to Dr. Vega at 750. ] Neck CTA 03/22/18 06:57 CONCLUSION: 1. Nearly nondiagnostic CTA examination due to suboptimal contrast administration following infiltration of patient's IV line. 2. There is very minimal atherosclerotic plaque involving the arch and left carotid bulb. The carotid and vertebral arteries appear grossly patent. CT CAD 03/22/18 07:05 CONCLUSION: Physiological brain perfusion parameters with RAPID analysis as above. The decision for consideration of therapy is multi factorial and multi disciplinary relying on subjective and objective clinical data. This data is not construed or intended to be the sole determinant of treatment eligibility. Patient/Family Conference Family Conference Time: 30 Family Conference Location: Bedside Issues Discussed: * Palliative care role, purpose, approach * Additional medical, psychosocial, and spiritual history * Patients general health, functional status, and cognitive changes in the months leading up to the current hospitalization * Patient/family understanding of the current medical problems * Patient/family understanding of prognosis * Patients goals of care as best understood from advance directives and/or conversations and/or values * Current medical treatment options and benefits/burdens of those options; exploration of possibility of respiratory support, tube feeding, benefits and burdens of these and other interventions. * Likely scenarios comparing ongoing aggressive care with a transition to comfort measures only-exploration of comfort measures should the patient not want further aggressive or invasive measures * Legal decision makephillfrandy has paperwork naming her as healthcare surrogate , patient also has living will stating that in the presence of terminal, end- stage or vegetative condition would not want heroic or artificially prolonging measures. * Questions answered to the best of my ability * Palliative care contact information provided Explore w dtr pt psychosocial history, recent cognitive, functional status. Explore with her possible trajectories, complications and paths going forward post significant CVA. Explore with her underlying medical history ( schizophrenia, dementia, Parkinson's )and how this may affect rehabilitation efforts. Explore with her current treatments in place, the primarily treatment following CVA when not a candidate for TPA is supportive care, various methods of monitoring and supportive care provided. Goals right now are aggressive though daughter and healthcare surrogate is open to further discussion as clinical course evolves. She will be considering code status, and feeding tube in the next day. She has requested that I call patient semi-estranged son to provide him an update as well, as she indicates that though she is designated the primary decision maker she will try to include her brother if he wishes to participate. I will call the son later once she has had opportunity to notify him, to provide him medical update. ---later call to son Tom Frank per Stephanie's request to up date him. Provided him overview of admission, condition, treatments in place, prognosis, possible trajectory. He has no additional questions, indicates will be at the hospital around 5/6 pm tonight. Assessment and Plan - Disease Oriented Problem List (1) Acute ischemic stroke (2) Right hemiparesis (3) Aphasia (4) Leukocytosis (5) Parkinson disease (6) Dementia (7) Hypertension (8) Schizophrenia (9) Hypothyroidism - Symptom Scale (1) Dyspnea 0-10 Scale: Unable to quantify (2) Dysphagia 0-10 Scale: Unable to quantify (3) Agitation 0-10 Scale: Unable to quantify (4) Weakness 0-10 Scale: Unable to quantify Pertinent Non-Medical Issues: Psychosocial: Patient originally from [place]. Lived in [place] for some years. Has 1 son, 1 estranged from son. Daughter is named healthcare surrogate and POA. She has a long history of schizophrenia, and has not been able to work much of her life secondary to this. 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 HER 2 children were primarily raised by her and his family. Stephanie has reconnected with pt in the past several years while assisting her with caregiving. Spiritual: Yazidism Legal:Patient is not capacitated secondary to underlying history of dementia, schizophrenia. Now here with acute stroke. daughter Stephanie has documentation naming her as healthcare surrogate, patient also has living will stating that in the presence of terminal, end-stage or vegetative condition would not want heroic or artificially prolonging measures Ethical issues impacting care: No ethical issues identified Important Contacts: Daughter Stephanie Frank (healthcare surrogate ) [phone] Son Tom Frank [phone] . Prognosis: This patient with an underlying history of dementia has had large acute left temporoparietal stroke with significant hemiplegia, aphasia. High risk for aspiration, further complications and sequelae secondary to stroke and advanced age. May be appropriate for hospice if goals compatible. Plan: * Legal decision maker: patient is not capacitated secondary to underlying history of dementia, schizophrenia. Now here with acute stroke. daughter Stephanie has documentation naming her as healthcare surrogate, patient also has living will stating that in the presence of terminal, end-stage or vegetative condition would not want heroic or artificially prolonging measures * Goals: Goals right now are aggressive though daughter and healthcare surrogate is open to further discussion as clinical course evolves. She will be considering code status, and feeding tube in the next day. She has requested that I call patient semi-estranged son to provide him an update as well, as she indicates that though she is designated the primary decision maker she will try to include her brother if he wishes to participate. * CODE STATUS: Full code * SYMPTOMS: --Dysphagia-high risk for aspiration per ST evaluation. Poor oral reference , pocketing of food. Secondary to significant CVA. Ongoing ST evaluation, n.p.o. for now. --Weakness/hemiplegia-significant hemiplegia status post CVA; large acute left temporoparietal stroke . Underlying cognitive deficits are likely to limit success of physical rehabilitation efforts. --Dyspnea-none currently however high risk for aspiration and associated dyspnea, and associated respiratory decline, dyspnea. --Agitation/confusion-patient with underlying history of schizophrenia, Parkinson's, dementia. Now here with acute CVA. Very high risk for agitation, which could contribute to worsening respiratory status, worsening clinical condition. At this point avoid sedatives in order to protect respiratory and airway status. Patient on long-term oral psychiatric meds which are currently not able to be given due to no feeding access and safe way to swallow. It would be priority to resume these home medications as there is limited availability of IM, IV which would be substitutions for her usual meds. --No chronic underlying pain syndromes according to daughter. * Palliative care will continue to follow during hospital course as condition evolves, to assist patient/decision-maker with understanding of medical conditions, weighing benefits/burdens of treatment options, for clarification of goals of treatment. Additionally will assist with any symptoms of palliative concern Appreciation Thank you for the opportunity to participate in the care of An Frank. Attestation Attestation: To help prompt me to consider important information that might be impacting today's encounter and assessment, information from prior notes written by myself or my colleagues may have been "brought forward" into today's note. My signature on this note, however, is an attestation that I personally performed the exam, history, and/or decision-making noted today, and, unless otherwise indicated, the interactions with patient, family, and staff as well as the review of records all occurred today. I also attest that the listed assessment and stated plan reflect my best clinical judgment today based on the combination of historical information, prior notes, and today's exam/ interactions. When time spent is documented, it refers only to time spent today by the signer, or if indicated, combined time spent today by collaborating physician/nurse practitioner.
--- NOTE | 2018-03-22 12:05 | ECG ---
Date Performed: 03/22/2018 Time Performed: 07:36:57 PTAGE: 87 years EKG: Sinus rhythm WITH FIRST DEGREE AV BLOCK WITH PVC. MINIMAL ST DEPRESSION ABNORMAL ECG PREVIOUS TRACING : 03/22/2018 07.35 DOCTOR: Geovanny Frazier Interpretating Date/Time 03/22/2018 12:04:47
--- NOTE | 2018-03-22 13:40 | ECHRPT ---
Indication: Cerebral Embolism CONCLUSIONS The left ventricular systolic function is normal with an estimated ejection fraction in the range of 60-65%. Trace mitral valve regurgitation. There is trace tricuspid valve regurgitation. Trivial pulmonary valve regurgitation. BP: / HR: Rhythm: MEASUREMENTS (Male / Female) Normal Values Technical Quality:Technically difficult study 2D ECHO LV Diastolic Diameter PLAX 4.2 cm 4.2 - 5.9 / 3.9 - 5.3 cm LV Systolic Diameter PLAX 2.8 cm IVS Diastolic Thickness 0.9 cm 0.6 - 1.0 / 0.6 - 0.9 cm LVPW Diastolic Thickness 0.9 cm 0.6 - 1.0 / 0.6 - 0.9 cm LV Relative Wall Thickness 0.4 RV Internal Dim ED PLAX 2.3 cm LVOT Diameter 2.0 cm Aortic Root Diameter 2.9 cm LA Systolic Diameter LX 3.4 cm 3.0 - 4.0 / 2.7 - 3.8 cm DOPPLER AV Peak Velocity 109.0 cm/s AV Peak Gradient 4.8 mmHg LVOT Peak Velocity 104.0 cm/s LVOT Peak Gradient 4.3 mmHg AV Area Cont Eq pk 3.0 cm Mitral E Point Velocity 97.9 cm/s Mitral A Point Velocity 88.7 cm/s Mitral E to A Ratio 1.1 LV E' Lateral Velocity 12.1 cm/s Mitral E to LV E' Lateral Ratio 8.1 LV E' Septal Velocity 7.8 cm/s Mitral E to LV E' Septal Ratio 12.6 TR Peak Velocity 299.0 cm/s TR Peak Gradient 35.8 mmHg Right Atrial Pressure 10.0 mmHg Pulmonary Artery Systolic Pressu 45.8 mmHg Right Ventricular Systolic Press 45.8 mmHg PV Peak Velocity 64.3 cm/s PV Peak Gradient 1.7 mmHg FINDINGS LEFT VENTRICLE Normal left ventricular size. Wall thickness is measured at the upper limits of normal. The left ventricular systolic function is normal with an estimated ejection fraction in the range of 60-65%. No regional wall motion abnormalities are present. RIGHT VENTRICLE Normal right ventricular size and systolic function. LEFT ATRIUM The left atrial size is normal. RIGHT ATRIUM The right atrial size is normal. ATRIAL SEPTUM Normal atrial septal thickness AORTA The aortic root and proximal ascending aorta are normal in size on limited imaging. MITRAL VALVE Structurally normal mitral valve. No mitral valve stenosis. Trace mitral valve regurgitation. AORTIC VALVE Grossly normal Aortic valve sclerosis is present. No aortic valve regurgitation. No aortic valve stenosis. TRICUSPID VALVE Grossly normal There is trace tricuspid valve regurgitation. The estimated pulmonary arterial pressure is 46 mmHg. PULMONARY VALVE The pulmonary valve is not well visualized. Trivial pulmonary valve regurgitation. VESSELS The inferior vena cava is normal in size. PERICARDIUM No pericardial effusion. Real Lee DO (Electronically Signed) Final Date:22 March 2018 13:40
--- NOTE | 2018-03-22 20:23 | P.HPFP ---
History of Present Illness Service: family medicine Primary Care Physician: Donavon Monsalve DO Chief Complaint: Acute right-sided weakness and aphasia History of Present Illness: The patient is an 87 year old female with past medical history significant for history of dementia, Parkinson's disease, hypertension, hypothyroidism who presented to the Emergency Department as a stroke alert. Patient was last seen normal around midnight. Presented with complaints of aphasia and right hemiparesis. A stat CT of the head showed Left temporoparietal hypodensity indicating ischemic infarct. CT perfusion study and CT angiograms of head and neck were unremarkable. Patient was out of TPA window. Neurology Dr. Vega was consulted who recommended conservative management with aspirin and permissive hypertension. I evaluated the patient in the emergency department. Daughter is at the bedside. Patient is unable to give much history. She is aphasic at this time protecting airway however mental status is somewhat concerning. Patient continues to have right hemiparesis. I encouraged daughter to consider the DNR. Patient has a living will stating no life prolonging measures in case of a terminal condition. Given her dementia and limited mobility the stroke could be terminal for her. I have also consulted palliative care to assist with goals of care - Diagnosis (1) Acute ischemic stroke (2) Right hemiparesis (3) Parkinson disease (4) Hypertension Inpatient Certification: I certify that the inpatient services were ordered in accordance with Medicare regulations governing the order. This includes certification that hospital inpatient services are reasonable and necessary and in the case of services not specified as inpatient-only under 42 CFR 419.22(n), that they are appropriately provided as inpatient services in accordance to with the 2-midnight benchmark under 43 CFR 412.3(e) Estimated Total Length of Stay (Days): 5 Plans for Post Hospital Care: Not yet determined Review of Systems Comments: non verbal Comments: right sided weakness present Psychiatric: Reports anxiety PMFSH - History History Provided By: Family Member - Medical History Medical History: Medical History (Last Reviewed 03/22/18 @ 09:52 by Gregg Ritter) Dementia GERD (gastroesophageal reflux disease) HBP (high blood pressure) Hypothyroidism Parkinson disease Schizophrenia - Surgical History Surgical History: Surgical History (Last Reviewed 03/22/18 @ 09:52 by Gregg Ritter) History of bladder surgery - Tobacco History Second Hand Smoke Exposure: No Tobacco Use In Past 30 Days: No Smoking Status: Never smoker - Alcohol History How Often Do You Have a Drink Containing Alcohol: Never - Substance Use History Substance History: No History of Abuse - Travel History Recent Travel in the [place] Within the Last 8 Weeks: No Recent Travel Out of the Country Within the Last 8 Weeks: No - Immunization History Tetanus Immunization: >5 Years Medications and Allergies Active Medications: Active Medications Albuterol (Duoneb Neb (Prn)) 1 ampul NEB Q2HR NEB PRN PRN Reason: WHEEZING Aspirin (Aspirin Supp) 300 mg RECTAL DAILY [facility] Bisacodyl (Dulcolax Supp) 10 mg RECTAL DAILY PRN PRN Reason: SEVERE CONSITIPATION Chlorhexidine Gluconate (Chlorhexidine 2% Cloth) 3 pack TOPICAL DAILY@0400 HARSH Stop: 03/28/18 03:59 Chlorhexidine Gluconate (Chlorhexidine 2% Cloth) 3 pack TOPICAL DAILY@0400 PRN PRN Reason: Extra cloth needed Stop: 03/28/18 03:59 Famotidine (Pepcid Pf Inj) 20 mg IV.PUSH Q12HR [facility] Last Admin: 03/22/18 20:06 Dose: 20 mg Sodium Chloride (Ns Inj) 1,000 mls @ 70 mls/hr IV.CONT .[id number] [facility] Last Admin: 03/22/18 19:37 Dose: 70 mls/hr Sodium Chloride (Ns Flush) 2 ml IV.FLUSH BID [facility] Last Admin: 03/22/18 20:06 Dose: 2 ml Sodium Chloride (Ns Flush) 2 ml IV.FLUSH PRN PRN PRN Reason: FLUSH AFTER USING IV ACCESS Allergies Allergy/AdvReac Type Severity Reaction Status Date / Time No Known Allergies Allergy Verified 03/22/18 06:59 Home Medications Medication Instructions Recorded Confirmed Type amlodipine [Norvasc] 2.5 mg PO DAILY 03/22/18 03/22/18 History benztropine 0.5 mg PO BID 03/22/18 03/22/18 History donepezil 10 mg PO DAILY 03/22/18 03/22/18 History furosemide [Lasix] 40 mg PO DAILY 03/22/18 03/22/18 History lurasidone [Latuda] 120 mg PO DAILY 03/22/18 03/22/18 History melatonin 3 mg PO HS 03/22/18 03/22/18 History memantine [Namenda XR] 14 mg PO DAILY 03/22/18 03/22/18 History omeprazole 20 mg PO DAILY 03/22/18 03/22/18 History potassium chloride [Klor-Con 10] 10 meq PO DAILY 03/22/18 03/22/18 History Exam Vital signs: Vital Signs 03/22/18 06:56 03/22/18 06:57 03/22/18 07:30 Temperature 97.8 F 97.7 F Pulse Rate 84 89 89 Respiratory Rate 17 18 Blood Pressure 200/103 H 180/89 H Pulse Oximetry 96 96 96 03/22/18 08:00 03/22/18 08:31 03/22/18 09:40 Temperature 97.8 F 97.9 F Pulse Rate 81 83 Respiratory Rate 16 16 Blood Pressure 189/99 H 182/89 H Pulse Oximetry 99 96 97 03/22/18 10:54 03/22/18 11:00 03/22/18 11:02 Temperature 98.0 F Pulse Rate 88 90 90 Respiratory Rate 19 18 16 Blood Pressure 211/85 H Pulse Oximetry 96 95 95 03/22/18 12:00 03/22/18 12:18 03/22/18 13:00 Temperature 98.7 F 98.4 F Pulse Rate 88 94 H 75 Respiratory Rate 16 18 23 Blood Pressure 184/98 H Pulse Oximetry 96 96 95 03/22/18 14:00 03/22/18 14:36 03/22/18 15:00 Temperature 98.0 F Pulse Rate 73 71 80 Respiratory Rate 18 17 20 Blood Pressure 207/85 H Pulse Oximetry 99 98 99 03/22/18 15:26 03/22/18 16:00 03/22/18 18:00 Temperature 98.1 F 98.6 F Pulse Rate 83 89 89 Respiratory Rate 24 38 H Blood Pressure 165/67 H Pulse Oximetry 98 96 Intake & Output 03/22/18 03/22/18 03/23/18 06:59 18:59 06:59 Intake Total 1000 / 1000 Balance 1000 / 1000 Weight 72.4 kg Intake: IV 1000 / 1000 NS Inj 1,000 ML @ 70 mls/hr IV. 1000 / 1000 CONT .[id number] [facility] Rx#:[id number] Other: Date of Last Bowel Movement 03/22/18 - Constitutional mild distress - Routine HEENT Exam Comments: aphasic - Routine Respiratory Exam Present: CTA bilaterally - Routine Cardiovascular Exam Present: RRR - Routine Abdominal Exam Present: soft, normoactive bowel sounds - Routine Extremities Exam Comments: right sided weakness Results - Labs Result diagrams: 03/22/18 07:00 Abnormal lab results 03/22/18 03/22/18 03/22/18 Range/Units 06:58 07:00 07:00 WBC 14.8 H (4.0-11.0) th/mm3 Neut % (Auto) 85.9 H (16.0-70.0) % Lymph % (Auto) 6.4 L (9.0-44.0) % Neut # (Auto) 12.7 H (1.8-7.7) th/mm3 Lymph # (Auto) 0.9 L (1.0-4.8) th/mm3 [place] # (Auto) 1.1 H (0.0-0.9) th/mm3 APTT 22.6 L (23.4-31.7) sec Fibrinogen 410 H (227-377) mg/dL POC Glucose 112 H (68-110) mg/dl Total Creatine Kinase (26-192) U/L CK-MB (CK-2) (0.5-3.6) ng/mL Troponin I (0.02-0.05) ng/mL Vitamin B12 (193-986) pg/mL Urine Clarity (Clear) Urine RBC (0-3) /hpf Calcium Oxalate Crystal (None) /hpf Urine Mucus (Occasional) /lpf 03/22/18 03/22/18 03/22/18 Range/Units 07:00 07:00 07:50 WBC (4.0-11.0) th/mm3 Neut % (Auto) (16.0-70.0) % Lymph % (Auto) (9.0-44.0) % Neut # (Auto) (1.8-7.7) th/mm3 Lymph # (Auto) (1.0-4.8) th/mm3 [place] # (Auto) (0.0-0.9) th/mm3 APTT (23.4-31.7) sec Fibrinogen (227-377) mg/dL POC Glucose 129 H (68-110) mg/dl Total Creatine Kinase 518 H (26-192) U/L CK-MB (CK-2) 7.0 H (0.5-3.6) ng/mL Troponin I 0.06 H (0.02-0.05) ng/mL Vitamin B12 175 L (193-986) pg/mL Urine Clarity Hazy H (Clear) Urine RBC 5 H (0-3) /hpf Calcium Oxalate Crystal Few H (None) /hpf Urine Mucus Few H (Occasional) /lpf Short CBC 03/22/18 Range/Units 07:00 WBC 14.8 H (4.0-11.0) th/mm3 Hgb 13.1 (11.6-15.3) gm/dL Hct 39.7 (35.0-46.0) % Plt Count 233 (150-450) th/mm3 Cardiac Enzymes 03/22/18 Range/Units 07:00 Total Creatine Kinase 518 H (26-192) U/L CK-MB (CK-2) 7.0 H (0.5-3.6) ng/mL Troponin I 0.06 H (0.02-0.05) ng/mL Urine 03/22/18 Range/Units 07:50 Urine Color Yellow (Yellw/Straw) Urine Clarity Hazy H (Clear) Urine pH 6.0 (5.0-8.5) Ur Specific [place] 1.034 (1.002-1.035) Urine Protein Negative (Neg-Trace) mg/dL Urine Glucose (UA) Negative (Negative) mg/dL - Imaging Impressions Chest X-Ray 03/22/18 06:57 CONCLUSION: No evidence of acute cardiopulmonary process. Head CT 03/22/18 06:57 CONCLUSION: 1. Left temporoparietal hypodensity characteristic of a nonhemorrhagic infarct 2. Aging brain with generalized volume loss and chronic ischemic white matter changes. 3. No significant mass effect. Report called by Dr. Stuart to Dr. Fuentes at 720. Head CTA 03/22/18 06:57 CONCLUSION: No evidence of proximal MCA occlusion or filling defect. Report was called by [Dr. Stuart to Dr. Vega at 750. ] Neck CTA 03/22/18 06:57 CONCLUSION: 1. Nearly nondiagnostic CTA examination due to suboptimal contrast administration following infiltration of patient's IV line. 2. There is very minimal atherosclerotic plaque involving the arch and left carotid bulb. The carotid and vertebral arteries appear grossly patent. CT CAD 03/22/18 07:05 CONCLUSION: Physiological brain perfusion parameters with RAPID analysis as above. The decision for consideration of therapy is multi factorial and multi disciplinary relying on subjective and objective clinical data. This data is not construed or intended to be the sole determinant of treatment eligibility. Caprini VTE Risk Assessment Caprini VTE Risk Assessment: Moderate/High Risk (score >= 2) VTE Pharmacological Exception Reason: High risk for bleeding Caprini Risk Assessment Model: Point Value = 1 Point Value = 2 Point Value = 3 Point Value = 5 Age 41-60 Minor surgery BMI > 25 kg/m2 Swollen legs Varicose veins or History of unexplained or recurrent spontaneous Oral contraceptives or hormone replacement Sepsis (< 1 month) Serious lung disease, including pneumonia (< 1 month) Abnormal pulmonary function Acute myocardial infarction Congestive heart failure (< 1 month) History of inflammatory bowel disease Medical patient at bed rest Age 61-74 Arthroscopic surgery Major open surgery (> 45 min) Laparoscopic surgery (> 45 min) Malignancy Confined to bed (> 72 hours) Immobilizing plaster cast Central venous access Age >= 75 History of VTE Family history of VTE Factor V Leiden Prothrombin [id number] Lupus anticoagulant Anticardiolipin antibodies Elevated serum homocysteine Heparin-induced thrombocytopenia Other congenital or acquired thrombophilia Stroke (< 1 month) Elective arthroplasty Hip, pelvis, or leg fracture Acute spinal cord injury (< 1 month) Prophylaxis Regimen: Total Risk Factor Score Risk Level Prophylaxis Regimen 0-1 Low Early ambulation 2 Moderate Order ONE of the following: *Sequential Compression Device (SCD) *Heparin 5000 units SQ BID 3-4 Higher Order ONE of the following medications: *Heparin 5000 units SQ TID *Enoxaparin/Lovenox 40 mg SQ daily (WT < 150 kg, CrCl > 30 mL/min) *Enoxaparin/Lovenox 30 mg SQ daily (WT < 150 kg, CrCl > 10-29 mL/min) *Enoxaparin/Lovenox 30 mg SQ BID (WT < 150 kg, CrCl > 30 mL/min) AND/OR *Sequential Compression Device (SCD) 5 or more Highest Order ONE of the following medications: *Heparin 5000 units SQ TID (Preferred with Epidurals) *Enoxaparin/Lovenox 40 mg SQ daily (WT < 150 kg, CrCl > 30 mL/min) *Enoxaparin/Lovenox 30 mg SQ daily (WT < 150 kg, CrCl > 10-29 mL/min) *Enoxaparin/Lovenox 30 mg SQ BID (WT < 150 kg, CrCl > 30 mL/min) AND *Sequential Compression Device (SCD) Assessment and Plan - Assessment (1) Acute ischemic stroke Code(s): I63.9 - Cerebral infarction, unspecified Status: Acute (2) Right hemiparesis Code(s): G81.91 - Hemiplegia, unspecified affecting right dominant side Status : Acute (3) Parkinson disease Code(s): G20 - Parkinson's disease Status: Chronic (4) Hypertension Code(s): I10 - Essential (primary) hypertension Status: Chronic - Assessment and Plan admission neurological consult anticoagulate when stable control htn (4) Hypertension Qualifiers: Hypertension type: essential hypertension Qualified Code(s): I10 - Essential (primary) hypertension
[2018-03-22 20:44] LABS: Chol/HDL Ratio 3.32 Ratio; HDL Cholesterol 56.8 mg/dL (40.0-60.0)
--- NOTE | 2018-03-22 21:55 | US ---
EXAM DATE: 03/22/2018 9:50 PM EST AGE/SEX: 87 years / Female INDICATIONS: Right sided weakness and aphasia. CLINICAL DATA: This is the patient's initial encounter. Patient reports that signs and symptoms have been present for 1 day and indicates a pain score of 0/10. MEDICAL/SURGICAL HISTORY: Dementia. Parkinson's disease. Hypertension. Hypothyroidism. GERD . Schizophrenia. . Bladder surgery. COMPARISON: No prior exams available for comparison. VELOCITY PARAMETERS: Examination is limited by the patient. ICA/CCA Ratio: Right 0.7 , Left 1.1 ICA: Right 99 cm/sec, Left 125 cm/sec CCA: Right 134 cm/sec, Left 114 cm/sec ECA: Right 162 cm/sec, Left 169 cm/sec Vertebral: Right 57 cm/sec antegrade, Left 61 cm/sec antegrade FINDINGS: RIGHT CAROTID: There is no evidence for a hemodynamically significant carotid stenosis. Minimal int imal hyperplasia is present with scattered calcific plaque. LEFT CAROTID: There is no evidence for a hemodynamically significant carotid stenosis. Minimal inti mal hyperplasia is present with scattered calcific plaque. Flow is antegrade in both vertebral arteries. There are no ancillary masses or adenopathy. CONCLUSION: Limited but negative examination for a hemodynamically significant carotid stenosis. Lonnie Reese MD FACR Electronically signed by: Lonnie Reese MD Board Certified Radiologist 03/22/2018 9:54 PM EST
[2018-03-22 22:06] LABS: Baso # (Auto) 0.1 th/mm3 (0.0-0.2); Baso % (Auto) 1.2 % (0.0-2.0); Eos # (Auto) 0.1 th/mm3 (0.0-0.4); Eos % (Auto) 0.6 % (0.0-4.0); Hematocrit 39.8 % (35.0-46.0); Lymph # (Auto) 2.1 th/mm3 (1.0-4.8); Lymph % (Auto) 18.1 % (9.0-44.0); Mean Corpuscular HGB Conc 32.6 % (32.0-36.0); Mean Corpuscular Hemoglobin 29.4 pg (27.0-34.0); Mean Corpuscular Volume 90.1 fL (80.0-100.0); Mean Platelet Volume 8.4 fL (7.0-11.0); Mono # (Auto) 1.1 th/mm3 (0.0-0.9); Mono % (Auto) 9.3 % (0.0-8.0); Neut # (Auto) 8.1 th/mm3 (1.8-7.7); Neut % (Auto) 70.8 % (16.0-70.0); Platelet Count 220 th/mm3 (150-450); Red Blood Count 4.42 mil/mm3 (4.00-5.30); Red Cell Distribution Width 13.3 % (11.6-17.2); White Blood Count 11.4 th/mm3 (4.0-11.0)
--- NOTE | 2018-03-22 22:06 | MB ---
cc: Mic Vega MD, PhD DATE: 03/22/2018 REASON FOR CONSULTATION: Stroke alert. HISTORY OF PRESENT ILLNESS: Ms. rFank is an 87-year-old woman, last seen normal at midnight last night, presented this morning as a stroke alert with right-sided weakness, difficulty getting words out. Her last time normal was about 7 hours prior to presentation. She therefore was not a candidate for TPA. She did undergo an evaluation for the possibility of interventional therapy. Her initial CT of the brain showed a left temporoparietal hypodensity consistent with a nonhemorrhagic infarction as well as atrophy. She had a CT angiogram of the brain. There was no evidence for a proximal MCA occlusion. There is some slight decreased flow in the left M2 M3 branches distally. CTA of the carotids in the neck are suboptimal. No gross stenosis identified. CT perfusion was done and evaluated by rapid. CBF volume was 14 mL. Perfusion volume was 30 mL. Mismatch volume 16 mL. I felt that the patient did not have a large vessel occlusion that was amenable to intervention. PAST MEDICAL HISTORY: No prior history of stroke. CURRENT MEDICATIONS: 1. Albuterol. 2. Dulcolax suppository. 3. Chlorhexidine. 4. Pepcid. NEUROLOGICAL EXAMINATION: VITAL SIGNS: Her blood pressure is 165/67, pulse is 72. She is in sinus rhythm. Temperature 98.6 degrees. HIGHER CORTICAL FUNCTION: She is alert. She has expressive aphasia. She does follow commands. Cranial nerves: There is a right upper motor neuron VII palsy, otherwise intact. Motor exam: She is weak in the right arm at 2/5, right leg 2/5, left arm and left leg 5/5 strength. IMAGING: As noted above. LABORATORY DATA: White count 14,800, hemoglobin 13.1, hematocrit 39.7%. PT 10.3, INR 1, aPTT 22.6. Sodium is 144, potassium 4.2, chloride 107. The BUN is 17, creatinine 1, glucose 129. CPK 518. TSH 0.77. B12 of 175. IMPRESSION: Acute left middle cerebral artery stroke. For reasons above, the patient was not a candidate for TPA or intervention. RECOMMENDATION: Continue aspirin. We will obtain a carotid ultrasound and echocardiogram. Continue to monitor cardiac telemetry. Rule out atrial fibrillation. Also, check a lipid panel. Mic Vega MD, PhD HERMELINDO/amada , 08:05 PM , 08:11 PM
[2018-03-22 22:27] LABS: Calcium 8.2 mg/dL (8.5-10.1); Carbon Dioxide 25.3 meq/L (21.0-32.0); Potassium 3.8 meq/L (3.5-5.1)
[2018-03-22 22:44] LABS: Free T4 (Free Thyroxine) 1.28 ng/dL (0.76-1.46); Thyroid Stimulating Hormone 0.368 uIU/mL (0.358-3.740); Triiodothyronine (T3) Free 1.77 pg/mL (2.18-3.98)
[2018-03-23] MEDS: Chlorhexidine Gluconate 2% 1 Pack (2 Cloths) TOPICAL SCH (03:14)
[2018-03-23] MEDS ORDERED: Chlorhexidine Gluconate 2% 1 Pack (2 Cloths) TOPICAL PRN (04:00)
[2018-03-23 04:18] LABS: Baso # (Auto) 0.1 th/mm3 (0.0-0.2); Baso % (Auto) 1.3 % (0.0-2.0); Eos # (Auto) 0.1 th/mm3 (0.0-0.4); Eos % (Auto) 0.6 % (0.0-4.0); Hematocrit 39.3 % (35.0-46.0); Hemoglobin 13.5 gm/dL (11.6-15.3); Lymph % (Auto) 18.3 % (9.0-44.0); Mean Corpuscular HGB Conc 34.3 % (32.0-36.0); Mean Corpuscular Hemoglobin 30.4 pg (27.0-34.0); Mean Corpuscular Volume 88.8 fL (80.0-100.0); Mono # (Auto) 1.2 th/mm3 (0.0-0.9); Mono % (Auto) 11.4 % (0.0-8.0); Neut # (Auto) 7.5 th/mm3 (1.8-7.7); Neut % (Auto) 68.4 % (16.0-70.0); Platelet Count 214 th/mm3 (150-450); Red Blood Count 4.42 mil/mm3 (4.00-5.30); Red Cell Distribution Width 13.6 % (11.6-17.2); White Blood Count 10.9 th/mm3 (4.0-11.0)
[2018-03-23] MEDS: Famotidine PF Inj 20 MG/2 ML Vial IV.PUSH SCH ×2 (10:37→20:23)
[2018-03-23] MEDS: Aspirin 300 MG Supp RECTAL SCH (10:37)
--- NOTE | 2018-03-23 10:38 | P.PNFP ---
Subjective Interval history: Seen at bedside, daughter present. Patient non verbal, does not follow commands Resting, appears comfortable. Results - Labs Result diagrams: 03/23/18 03:19 03/22/18 21:53 Abnormal lab results 03/22/18 03/22/18 03/22/18 Range/Units 07:00 07:00 21:53 WBC 11.4 H (4.0-11.0) th/mm3 Neut % (Auto) 70.8 H (16.0-70.0) % [place] % (Auto) 9.3 H (0.0-8.0) % Neut # (Auto) 8.1 H (1.8-7.7) th/mm3 [place] # (Auto) 1.1 H (0.0-0.9) th/mm3 Chloride (98-107) meq/L Estimated GFR (>89) mL/min Random Glucose (74-106) mg/dL Calcium (8.5-10.1) mg/dL LDL Cholesterol, Calc 114 H (0-99) mg/dL Vitamin B12 175 L (193-986) pg/mL Free T3 (2.18-3.98) pg/mL 03/22/18 03/23/18 Range/Units 21:53 03:19 WBC (4.0-11.0) th/mm3 Neut % (Auto) (16.0-70.0) % [place] % (Auto) 11.4 H (0.0-8.0) % Neut # (Auto) (1.8-7.7) th/mm3 [place] # (Auto) 1.2 H (0.0-0.9) th/mm3 Chloride 111 H (98-107) meq/L Estimated GFR 70 L (>89) mL/min Random Glucose 121 H (74-106) mg/dL Calcium 8.2 L (8.5-10.1) mg/dL LDL Cholesterol, Calc (0-99) mg/dL Vitamin B12 (193-986) pg/mL Free T3 1.77 L (2.18-3.98) pg/mL Short CBC 03/22/18 03/23/18 Range/Units 21:53 03:19 WBC 11.4 H 10.9 (4.0-11.0) th/mm3 Hgb 13.0 13.5 (11.6-15.3) gm/dL Hct 39.8 39.3 (35.0-46.0) % Plt Count 220 214 (150-450) th/mm3 BMP 03/22/18 21:53 Sodium 143 Potassium 3.8 Chloride 111 H Carbon Dioxide 25.3 BUN 12 Creatinine 0.78 Calcium 8.2 L - Imaging Impressions Carotid Doppler Study 03/22/18 00:00 CONCLUSION: Limited but negative examination for a hemodynamically significant carotid stenosis. Lonnie Reese MD FACR Physical Exam Vital signs: Vital Signs 03/22/18 10:54 03/22/18 11:00 03/22/18 11:02 Temperature 98.0 F Pulse Rate 88 90 90 Respiratory Rate 19 18 16 Blood Pressure 211/85 H Pulse Oximetry 96 95 95 03/22/18 12:00 03/22/18 12:18 03/22/18 13:00 Temperature 98.7 F 98.4 F Pulse Rate 88 94 H 75 Respiratory Rate 16 18 23 Blood Pressure 184/98 H Pulse Oximetry 96 96 95 03/22/18 14:00 03/22/18 14:36 03/22/18 15:00 Temperature 98.0 F Pulse Rate 73 71 80 Respiratory Rate 18 17 20 Blood Pressure 207/85 H Pulse Oximetry 99 98 99 03/22/18 15:26 03/22/18 16:00 03/22/18 18:00 Temperature 98.1 F 98.6 F Pulse Rate 83 89 89 Respiratory Rate 24 38 H Blood Pressure 165/67 H Pulse Oximetry 98 96 03/22/18 20:00 03/22/18 20:23 03/22/18 20:24 Temperature Pulse Rate 103 H 72 Respiratory Rate 27 H 24 Blood Pressure 196/82 H Pulse Oximetry 94 L 92 L 92 L 03/22/18 20:30 03/22/18 20:50 03/22/18 21:00 Temperature Pulse Rate 70 69 76 Respiratory Rate 26 H 26 H 27 H Blood Pressure 179/72 H 145/67 H Pulse Oximetry 93 L 95 94 L 03/22/18 21:20 03/22/18 21:50 03/22/18 21:53 Temperature Pulse Rate 87 92 H 89 Respiratory Rate 23 18 18 Blood Pressure 204/82 H 221/91 H 196/86 H Pulse Oximetry 93 L 93 L 93 L 12/13/18 22:00 03/22/18 22:20 03/22/18 22:50 Temperature Pulse Rate 89 81 92 H Respiratory Rate 23 12 21 Blood Pressure 187/77 H 194/118 H Pulse Oximetry 95 92 L 94 L 03/22/18 22:57 03/22/18 23:00 03/22/18 23:20 Temperature Pulse Rate 94 H 96 H 79 Respiratory Rate 23 28 H 12 Blood Pressure 198/90 H 188/78 H Pulse Oximetry 93 L 93 L 90 L 03/22/18 23:50 03/23/18 00:00 03/23/18 00:20 Temperature 99.1 F Pulse Rate 87 87 89 Respiratory Rate 18 19 16 Blood Pressure 191/86 H 196/81 H Pulse Oximetry 93 L 93 L 92 L 03/23/18 00:50 03/23/18 01:00 03/23/18 01:20 Temperature Pulse Rate 88 85 87 Respiratory Rate 22 21 32 H Blood Pressure 210/82 H 144/92 H Pulse Oximetry 92 L 93 L 94 L 03/23/18 01:50 03/23/18 01:52 03/23/18 02:00 Temperature Pulse Rate 87 92 H 78 Respiratory Rate 30 H 31 H 22 Blood Pressure 198/119 H 183/88 H Pulse Oximetry 94 L 94 L 92 L 03/23/18 02:20 03/23/18 02:50 03/23/18 03:00 Temperature Pulse Rate 85 80 99 H Respiratory Rate 30 H 27 H 27 H Blood Pressure 183/76 H 193/72 H Pulse Oximetry 94 L 93 L 94 L 03/23/18 03:20 03/23/18 03:50 03/23/18 04:00 Temperature 98.7 F Pulse Rate 83 79 78 Respiratory Rate 31 H 22 19 Blood Pressure 201/82 H 172/78 H Pulse Oximetry 95 94 L 93 L 03/23/18 04:20 03/23/18 04:50 03/23/18 05:00 Temperature Pulse Rate 86 79 101 H Respiratory Rate 21 23 19 Blood Pressure 167/77 H 150/67 H Pulse Oximetry 93 L 94 L 95 03/23/18 05:20 03/23/18 05:50 03/23/18 06:00 Temperature Pulse Rate 77 76 75 Respiratory Rate 22 17 25 H Blood Pressure 171/75 H 161/63 H Pulse Oximetry 93 L 94 L 94 L 03/23/18 09:55 Temperature Pulse Rate Respiratory Rate Blood Pressure Pulse Oximetry 95 Intake & Output 03/22/18 03/23/18 03/23/18 18:59 06:59 18:59 Intake Total 1000 / 1000 Output Total 850 / 850 Balance 150 / 150 Weight 73.2 kg Intake: IV 1000 / 1000 NS Inj 1,000 ML @ 70 mls/hr IV. 1000 / 1000 CONT .[id number] [facility] Rx#:[id number] Output: Urine Amount (Catheter) 850 / 850 Female External 850 / 850 Other: Date of Last Bowel Movement 03/22/18 03/23/18 - Constitutional no acute distress - Routine HEENT Exam ENT: Present: mucous membranes dry - Routine Neck Exam Present: supple - Routine Respiratory Exam Present: CTA bilaterally - Routine Cardiovascular Exam Present: S1, S2 - Routine Abdominal Exam Present: soft, normoactive bowel sounds - Routine Extremities Exam Present: pulses intact - Routine Skin Exam Present: dry, warm - Routine Neurological Exam Present: alert - Urinary Catheter Management Straight Cath placed during this visit: yes, but has since been removed by the nurse Reason for continuing: Decision to DC catheter Insertion date: 03/22/18 Insertion time: 07:10 Removal date: 03/22/18 Removal time: 07:11 Female External Cath placed during this visit: no Assessment and Plan - Assessment (1) Acute ischemic stroke Code(s): I63.9 - Cerebral infarction, unspecified Status: Acute (2) Right hemiparesis Code(s): G81.91 - Hemiplegia, unspecified affecting right dominant side Status : Acute (3) Parkinson disease Code(s): G20 - Parkinson's disease Status: Chronic (4) Hypertension Code(s): I10 - Essential (primary) hypertension Status: Chronic - Assessment and Plan admission neurological consult anticoagulate when stable control htn 03/23/18- Seen this am daughter at bedside. She voices they are still wanting aggressive care at this time. Patient has been seen by ST and it is recommended she remans NPO. Discussed peg placement, family wishes to proceed with feeding tube. Referral made. VSS afebrile. Neurology following. (4) Hypertension Qualifiers: Hypertension type: essential hypertension Qualified Code(s): I10 - Essential (primary) hypertension
--- NOTE | 2018-03-23 12:49 | P.CONGI ---
History of Present Illness Consult date: 03/23/18 Consult reason: PEG placement Chief complaint: Left MCA Ischemic stroke History of Present Illness: Patient is an 87-year-old female with past medical history significant for dementia, Parkinson's disease, hypertension and hypothyroidism. Surgical history significant for bladder surgery. Patient presented to the emergency room at [facility] as a stroke alert. CT of the head showed left temporoparietal hypodensity indicating ischemic infarct. Upon consult, patient noted to be awake and alert, pleasant and cooperative. Patient is also aphasic. As per speech therapy, patient at high risk for aspiration, recommendation to maintain n.p.o. Our service has been consulted to evaluate patient for PEG tube placement. Review of Systems unobtainable due to mental condition PMFSH - History History Provided By: Family Member - Medical History Medical History: Medical History (Last Reviewed 03/23/18 @ 09:28 by Praveen Soria) Dementia GERD (gastroesophageal reflux disease) HBP (high blood pressure) Hypothyroidism Parkinson disease Schizophrenia - Surgical History Surgical History: Surgical History (Last Reviewed 03/23/18 @ 09:28 by Praveen Soria) History of bladder surgery - Tobacco History Second Hand Smoke Exposure: No Tobacco Use In Past 30 Days: No Smoking Status: Never smoker - Alcohol History How Often Do You Have a Drink Containing Alcohol: Never - Substance Use History Substance History: No History of Abuse - Travel History Recent Travel in the [place] Within the Last 8 Weeks: No Recent Travel Out of the Country Within the Last 8 Weeks: No - Immunization History Tetanus Immunization: >5 Years Medications and Allergies Active Medications: Active Medications Albuterol (Duoneb Neb (Prn)) 1 ampul NEB Q2HR NEB PRN PRN Reason: WHEEZING Aspirin (Aspirin Supp) 300 mg RECTAL DAILY [facility] Last Admin: 03/23/18 10:37 Dose: 300 mg Bisacodyl (Dulcolax Supp) 10 mg RECTAL DAILY PRN PRN Reason: SEVERE CONSITIPATION Chlorhexidine Gluconate (Chlorhexidine 2% Cloth) 3 pack TOPICAL DAILY@0400 [facility] Stop: 03/28/18 03:59 Last Admin: 03/23/18 03:14 Dose: 3 pack Chlorhexidine Gluconate (Chlorhexidine 2% Cloth) 3 pack TOPICAL DAILY@0400 PRN PRN Reason: Extra cloth needed Stop: 03/28/18 03:59 Famotidine (Pepcid Pf Inj) 20 mg IV.PUSH Q12HR [facility] Last Admin: 03/23/18 10:37 Dose: 20 mg Sodium Chloride (Ns Inj) 1,000 mls @ 70 mls/hr IV.CONT .[id number] [facility] Last Admin: 03/22/18 22:05 Dose: Not Given Cefazolin Sodium 1,000 mg/ (Sodium Chloride) 100 mls @ 200 mls/hr IV.SIG [employer] [facility] Stop: 03/26/18 12:36 Sodium Chloride (Ns Flush) 2 ml IV.FLUSH BID [facility] Last Admin: 03/23/18 10:37 Dose: 2 ml Sodium Chloride (Ns Flush) 2 ml IV.FLUSH PRN PRN PRN Reason: FLUSH AFTER USING IV ACCESS Allergies Allergy/AdvReac Type Severity Reaction Status Date / Time No Known Allergies Allergy Verified 03/22/18 06:59 Home Medications Medication Instructions Recorded Confirmed Type amlodipine [Norvasc] 2.5 mg PO DAILY 03/22/18 03/22/18 History benztropine 0.5 mg PO BID 03/22/18 03/22/18 History donepezil 10 mg PO DAILY 03/22/18 03/22/18 History furosemide [Lasix] 40 mg PO DAILY 03/22/18 03/22/18 History lurasidone [Latuda] 120 mg PO DAILY 03/22/18 03/22/18 History melatonin 3 mg PO HS 03/22/18 03/22/18 History memantine [Namenda XR] 14 mg PO DAILY 03/22/18 03/22/18 History omeprazole 20 mg PO DAILY 03/22/18 03/22/18 History potassium chloride [Klor-Con 10] 10 meq PO DAILY 03/22/18 03/22/18 History Exam Vital signs: Vital Signs 03/22/18 13:00 03/22/18 14:00 03/22/18 14:36 Temperature 98.4 F 98.0 F Pulse Rate 75 73 71 Respiratory Rate 23 18 17 Blood Pressure 207/85 H Pulse Oximetry 95 99 98 03/22/18 15:00 03/22/18 15:26 03/22/18 16:00 Temperature 98.1 F 98.6 F Pulse Rate 80 83 89 Respiratory Rate 20 24 38 H Blood Pressure 165/67 H Pulse Oximetry 99 98 96 12/13/18 18:00 03/22/18 20:00 03/22/18 20:23 Temperature Pulse Rate 89 103 H Respiratory Rate 27 H Blood Pressure Pulse Oximetry 94 L 92 L 03/22/18 20:24 03/22/18 20:30 03/22/18 20:50 Temperature Pulse Rate 72 70 69 Respiratory Rate 24 26 H 26 H Blood Pressure 196/82 H 179/72 H 145/67 H Pulse Oximetry 92 L 93 L 95 03/22/18 21:00 03/22/18 21:20 03/22/18 21:50 Temperature Pulse Rate 76 87 92 H Respiratory Rate 27 H 23 18 Blood Pressure 204/82 H 221/91 H Pulse Oximetry 94 L 93 L 93 L 03/22/18 21:53 03/22/18 22:00 03/22/18 22:20 Temperature Pulse Rate 89 89 81 Respiratory Rate 18 23 12 Blood Pressure 196/86 H 187/77 H Pulse Oximetry 93 L 95 92 L 03/22/18 22:50 03/22/18 22:57 03/22/18 23:00 Temperature Pulse Rate 92 H 94 H 96 H Respiratory Rate 21 23 28 H Blood Pressure 194/118 H 198/90 H Pulse Oximetry 94 L 93 L 93 L 03/22/18 23:20 03/22/18 23:50 03/23/18 00:00 Temperature 99.1 F Pulse Rate 79 87 87 Respiratory Rate 12 18 19 Blood Pressure 188/78 H 191/86 H Pulse Oximetry 90 L 93 L 93 L 03/23/18 00:20 03/23/18 00:50 03/23/18 01:00 Temperature Pulse Rate 89 88 85 Respiratory Rate 16 22 21 Blood Pressure 196/81 H 210/82 H Pulse Oximetry 92 L 92 L 93 L 03/23/18 01:20 03/23/18 01:50 03/23/18 01:52 Temperature Pulse Rate 87 87 92 H Respiratory Rate 32 H 30 H 31 H Blood Pressure 144/92 H 198/119 H 183/88 H Pulse Oximetry 94 L 94 L 94 L 03/23/18 02:00 03/23/18 02:20 03/23/18 02:50 Temperature Pulse Rate 78 85 80 Respiratory Rate 22 30 H 27 H Blood Pressure 183/76 H 193/72 H Pulse Oximetry 92 L 94 L 93 L 03/23/18 03:00 03/23/18 03:20 03/23/18 03:50 Temperature Pulse Rate 99 H 83 79 Respiratory Rate 27 H 31 H 22 Blood Pressure 201/82 H 172/78 H Pulse Oximetry 94 L 95 94 L 03/23/18 04:00 03/23/18 04:20 03/23/18 04:50 Temperature 98.7 F Pulse Rate 78 86 79 Respiratory Rate 19 21 23 Blood Pressure 167/77 H 150/67 H Pulse Oximetry 93 L 93 L 94 L 03/23/18 05:00 03/23/18 05:20 03/23/18 05:50 Temperature Pulse Rate 101 H 77 76 Respiratory Rate 19 22 17 Blood Pressure 171/75 H 161/63 H Pulse Oximetry 95 93 L 94 L 03/23/18 06:00 03/23/18 09:55 Temperature Pulse Rate 75 Respiratory Rate 25 H Blood Pressure Pulse Oximetry 94 L 95 Intake & Output 03/22/18 03/23/18 03/23/18 18:59 06:59 18:59 Intake Total 1000 / 1000 Output Total 850 / 850 Balance 150 / 150 Weight 73.2 kg Intake: IV 1000 / 1000 NS Inj 1,000 ML @ 70 mls/hr IV. 1000 / 1000 CONT .[id number] [facility] Rx#:[id number] Output: Urine Amount (Catheter) 850 / 850 Female External 850 / 850 Other: Date of Last Bowel Movement 03/22/18 03/23/18 - Constitutional no acute distress, chronically ill appearing - Routine HEENT Exam Head: Present: normocephalic - Routine Respiratory Exam Present: CTA bilaterally. Absent: accessory muscle use - Routine Cardiovascular Exam Present: RRR, S1, S2 - Routine Abdominal Exam Present: soft, normoactive bowel sounds, surgical scars. Absent: tenderness, distended, guarding, firm - Routine Extremities Exam Present: pulses intact. Absent: edema - Routine Skin Exam Present: dry, warm. Absent: pallor - Routine Neurological Exam Present: alert, altered mental status History dementia Aphasic post CVA Results - Labs CBC & Chem 7: 03/23/18 03:19 03/22/18 21:53 Labs: Laboratory Results - last 24 hr 03/22/18 03/22/18 03/22/18 07:00 18:00 21:53 WBC 11.4 H RBC 4.42 Hgb 13.0 Hct 39.8 MCV 90.1 MCH 29.4 MCHC 32.6 RDW 13.3 Plt Count 220 MPV 8.4 Neut % (Auto) 70.8 H Lymph % (Auto) 18.1 [place] % (Auto) 9.3 H Eos % (Auto) 0.6 Baso % (Auto) 1.2 Neut # (Auto) 8.1 H Lymph # (Auto) 2.1 [place] # (Auto) 1.1 H Eos # (Auto) 0.1 Baso # (Auto) 0.1 WBC Differential . Differential Comment Auto diff final Sodium Potassium Chloride Carbon Dioxide Anion Gap BUN Creatinine Estimated GFR Random Glucose Calcium Magnesium Triglycerides 92 Cholesterol 189 LDL Cholesterol, Calc 114 H HDL Cholesterol 56.8 Cholesterol/HDL Ratio 3.32 TSH Free T4 Free T3 Nasal Screen MRSA (PCR) Mrsa detected 03/22/18 03/23/18 03/23/18 21:53 03:19 03:19 WBC 10.9 RBC 4.42 Hgb 13.5 Hct 39.3 MCV 88.8 MCH 30.4 MCHC 34.3 RDW 13.6 Plt Count 214 MPV 9.0 Neut % (Auto) 68.4 Lymph % (Auto) 18.3 [place] % (Auto) 11.4 H Eos % (Auto) 0.6 Baso % (Auto) 1.3 Neut # (Auto) 7.5 Lymph # (Auto) 2.0 [place] # (Auto) 1.2 H Eos # (Auto) 0.1 Baso # (Auto) 0.1 WBC Differential . Differential Comment Auto diff final Sodium 143 Potassium 3.8 Chloride 111 H Carbon Dioxide 25.3 Anion Gap 7 BUN 12 Creatinine 0.78 Estimated GFR 70 L Random Glucose 121 H Calcium 8.2 L Magnesium 2.0 Triglycerides Cholesterol LDL Cholesterol, Calc HDL Cholesterol Cholesterol/HDL Ratio TSH 0.368 Free T4 1.28 Free T3 1.77 L Nasal Screen MRSA (PCR) - Imaging Impressions Carotid Doppler Study 03/22/18 00:00 CONCLUSION: Limited but negative examination for a hemodynamically significant carotid stenosis. Lonnie Reese MD FACR Assessment and Plan (1) Dysphasia Status: Acute Code(s): R47.02 - Dysphasia - Plan Patient is an 87-year-old female with past medical history significant for dementia, Parkinson's disease, hypertension and hypothyroidism. Surgical history significant for bladder surgery. Patient presented to the emergency room at [facility] as a stroke alert. CT of the head showed left temporoparietal hypodensity indicating ischemic infarct. Upon consult, patient noted to be awake and alert, pleasant and cooperative. Patient is also aphasic. As per speech therapy, patient at high risk for aspiration, recommendation to maintain n.p.o. Our service has been consulted to evaluate patient for PEG tube placement. Dysphasia PEG tube placement 87-year-old female past medical history significant for dementia. Recent CVA/ischemic infarct with residual aphasia As per speech therapy, patient at high risk for aspiration Plan -N.p.o. -Obtain consent for EGD with PEG-call placed to patient's daughter Stephanie at [phone]; no voicemail -Ancef 1 g IV on-call for procedure -Dietary consult for tube feeding recommendations -Aspiration precautions -Supportive care -Further recommendations to follow This patient has been seen by myself and Dr. Burr and this note is written on his behalf - Attending Attestation Dr. Burr
[2018-03-23] MEDS ORDERED: ceFAZolin 1 GM Premix Inj 1 GM/50 ML PIGGYBACK IV.SIG SCH (12:55)
--- NOTE | 2018-03-23 13:42 | P.CONREH ---
History of Present Illness Service: Physical Medicine and Rehabilitation Consult date: 03/23/18 Reason for Consult: Comprehensive rehabilitation evaluation Primary Care Provider: Donavon Monsalve DO Chief Complaint: Stroke History of Present Illness: An Frank is an 87-year-old female with past medical history of Parkinson's disease, dementia, hypertension and hypothyroidism who was admitted to [facility] 03/22/18 with right hemiparesis and aphasia. Head CT 03/22/18 showed left temporoparietal hypodensity characteristic of nonhemorrhagic infarct, aging brain with generalized volume loss and chronic ischemic white matter changes. CT angiogram of the brain was negative. Carotid Doppler was negative for hemodynamically significant stenosis. She was evaluated by neurology and aspirin was continued. Cardiac telemetry was recommended. Review of Systems other (Patient not following commands or attempting to verbalize) PMFSH - History History Provided By: Family Member - Medical History Medical History: Medical History (Last Reviewed 03/29/18 @ 08:59 by Gerri Cullen) Dementia GERD (gastroesophageal reflux disease) HBP (high blood pressure) History of MRSA infection Onset Date: ~03/22/18 Hypothyroidism Parkinson disease Schizophrenia - Surgical History Surgical History: Surgical History (Last Reviewed 03/29/18 @ 08:59 by Gerri Cullen) History of bladder surgery - Tobacco History Second Hand Smoke Exposure: No Tobacco Use In Past 30 Days: No Smoking Status: Never smoker - Alcohol History How Often Do You Have a Drink Containing Alcohol: Never - Substance Use History Substance History: No History of Abuse - Travel History Recent Travel in the [place] Within the Last 8 Weeks: No Recent Travel Out of the Country Within the Last 8 Weeks: No - Immunization History Tetanus Immunization: >5 Years Medications and Allergies Active Medications: Active Medications Albuterol (Duoneb Neb (Prn)) 1 ampul NEB Q2HR NEB PRN PRN Reason: WHEEZING Aspirin (Aspirin Supp) 300 mg RECTAL DAILY [facility] Last Admin: 03/23/18 10:37 Dose: 300 mg Bisacodyl (Dulcolax Supp) 10 mg RECTAL DAILY PRN PRN Reason: SEVERE CONSITIPATION Chlorhexidine Gluconate (Chlorhexidine 2% Cloth) 3 pack TOPICAL DAILY@0400 [facility] Stop: 03/28/18 03:59 Last Admin: 03/23/18 03:14 Dose: 3 pack Chlorhexidine Gluconate (Chlorhexidine 2% Cloth) 3 pack TOPICAL DAILY@0400 PRN PRN Reason: Extra cloth needed Stop: 03/28/18 03:59 Famotidine (Pepcid Pf Inj) 20 mg IV.PUSH Q12HR [facility] Last Admin: 03/23/18 10:37 Dose: 20 mg Sodium Chloride (Ns Inj) 1,000 mls @ 70 mls/hr IV.CONT .[id number] [facility] Last Admin: 03/22/18 22:05 Dose: Not Given Cefazolin Sodium/Dextrose (Ancef 1 Gm Premix Inj) 1 gm in 50 mls @ 100 mls/hr IV.SIG [employer] [facility] Sodium Chloride (Ns Flush) 2 ml IV.FLUSH BID [facility] Last Admin: 03/23/18 10:37 Dose: 2 ml Sodium Chloride (Ns Flush) 2 ml IV.FLUSH PRN PRN PRN Reason: FLUSH AFTER USING IV ACCESS Allergies Allergy/AdvReac Type Severity Reaction Status Date / Time No Known Allergies Allergy Verified 03/22/18 06:59 Home Medications Medication Instructions Recorded Confirmed Type amlodipine [Norvasc] 2.5 mg PO DAILY 03/22/18 03/22/18 History benztropine 0.5 mg PO BID 03/22/18 03/22/18 History donepezil 10 mg PO DAILY 03/22/18 03/22/18 History lurasidone [Latuda] 120 mg PO DAILY 03/22/18 03/22/18 History melatonin 3 mg PO HS 03/22/18 03/22/18 History memantine [Namenda XR] 14 mg PO DAILY 03/22/18 03/22/18 History omeprazole 20 mg PO DAILY 03/22/18 03/22/18 History potassium chloride [Klor-Con 10] 10 meq PO DAILY 03/22/18 03/22/18 History Exam - Physical Examination Vital Signs / I&O: Vital Signs 03/22/18 14:00 03/22/18 14:36 03/22/18 15:00 Temperature 98.0 F Pulse Rate 73 71 80 Respiratory Rate 18 17 20 Blood Pressure 207/85 H Pulse Oximetry 99 98 99 03/22/18 15:26 03/22/18 16:00 03/22/18 18:00 Temperature 98.1 F 98.6 F Pulse Rate 83 89 89 Respiratory Rate 24 38 H Blood Pressure 165/67 H Pulse Oximetry 98 96 03/22/18 20:00 03/22/18 20:23 03/22/18 20:24 Temperature Pulse Rate 103 H 72 Respiratory Rate 27 H 24 Blood Pressure 196/82 H Pulse Oximetry 94 L 92 L 92 L 03/22/18 20:30 03/22/18 20:50 03/22/18 21:00 Temperature Pulse Rate 70 69 76 Respiratory Rate 26 H 26 H 27 H Blood Pressure 179/72 H 145/67 H Pulse Oximetry 93 L 95 94 L 03/22/18 21:20 03/22/18 21:50 03/22/18 21:53 Temperature Pulse Rate 87 92 H 89 Respiratory Rate 23 18 18 Blood Pressure 204/82 H 221/91 H 196/86 H Pulse Oximetry 93 L 93 L 93 L 03/22/18 22:00 03/22/18 22:20 03/22/18 22:50 Temperature Pulse Rate 89 81 92 H Respiratory Rate 23 12 21 Blood Pressure 187/77 H 194/118 H Pulse Oximetry 95 92 L 94 L 03/22/18 22:57 03/22/18 23:00 03/22/18 23:20 Temperature Pulse Rate 94 H 96 H 79 Respiratory Rate 23 28 H 12 Blood Pressure 198/90 H 188/78 H Pulse Oximetry 93 L 93 L 90 L 03/22/18 23:50 03/23/18 00:00 03/23/18 00:20 Temperature 99.1 F Pulse Rate 87 87 89 Respiratory Rate 18 19 16 Blood Pressure 191/86 H 196/81 H Pulse Oximetry 93 L 93 L 92 L 03/23/18 00:50 03/23/18 01:00 03/23/18 01:20 Temperature Pulse Rate 88 85 87 Respiratory Rate 22 21 32 H Blood Pressure 210/82 H 144/92 H Pulse Oximetry 92 L 93 L 94 L 03/23/18 01:50 03/23/18 01:52 03/23/18 02:00 Temperature Pulse Rate 87 92 H 78 Respiratory Rate 30 H 31 H 22 Blood Pressure 198/119 H 183/88 H Pulse Oximetry 94 L 94 L 92 L 03/23/18 02:20 03/23/18 02:50 03/23/18 03:00 Temperature Pulse Rate 85 80 99 H Respiratory Rate 30 H 27 H 27 H Blood Pressure 183/76 H 193/72 H Pulse Oximetry 94 L 93 L 94 L 03/23/18 03:20 03/23/18 03:50 03/23/18 04:00 Temperature 98.7 F Pulse Rate 83 79 78 Respiratory Rate 31 H 22 19 Blood Pressure 201/82 H 172/78 H Pulse Oximetry 95 94 L 93 L 03/23/18 04:20 03/23/18 04:50 03/23/18 05:00 Temperature Pulse Rate 86 79 101 H Respiratory Rate 21 23 19 Blood Pressure 167/77 H 150/67 H Pulse Oximetry 93 L 94 L 95 03/23/18 05:20 03/23/18 05:50 03/23/18 06:00 Temperature Pulse Rate 77 76 75 Respiratory Rate 22 17 25 H Blood Pressure 171/75 H 161/63 H Pulse Oximetry 93 L 94 L 94 L 03/23/18 09:55 Temperature Pulse Rate Respiratory Rate Blood Pressure Pulse Oximetry 95 Intake & Output 03/22/18 03/23/18 03/23/18 18:59 06:59 18:59 Intake Total 1000 / 1000 Output Total 850 / 850 Balance 150 / 150 Weight 73.2 kg Intake: IV 1000 / 1000 NS Inj 1,000 ML @ 70 mls/hr IV. 1000 / 1000 CONT .[id number] [facility] Rx#:[id number] Output: Urine Amount (Catheter) 850 / 850 Female External 850 / 850 Other: Date of Last Bowel Movement 03/22/18 03/23/18 Intake & Output 03/21/18 03/22/18 03/23/18 03/24/18 06:59 06:59 06:59 06:59 Intake Total 1000 / 1000 Output Total 850 / 850 Balance 150 / 150 Weight 72.4 kg 73.2 kg General: No acute distress Respiratory: Lungs CTA, Non-labored respirations, BS equal (Decreased breath sounds bases bilaterally) Gastrointestinal: Positive bowel sounds, Non-distended Date of Last Bowel Movement: 03/23/18 Cardiovascular: Normal rate, No edema, Regular rhythm Skin: No rash Musculoskeletal: ROM (Within functional limits) - Neurologic Orientation: unable to assess: Self, Place, Time, Situation Neurologic: Pupils (Pupils reactive bilaterally), EOM (Not tracking or focusing to voice or tactile stim), Speech (Nonverbal), Other (Not following commands to move UE or LE but withdraws throughout) Babinski: Positive (Right) Clonus: Negative Results - Labs CBC & Chem 7: 03/28/18 05:02 03/30/18 10:46 Labs: Laboratory Results - last 24 hr 03/22/18 03/22/18 03/22/18 07:00 18:00 21:53 WBC 11.4 H RBC 4.42 Hgb 13.0 Hct 39.8 MCV 90.1 MCH 29.4 MCHC 32.6 RDW 13.3 Plt Count 220 MPV 8.4 Neut % (Auto) 70.8 H Lymph % (Auto) 18.1 [place] % (Auto) 9.3 H Eos % (Auto) 0.6 Baso % (Auto) 1.2 Neut # (Auto) 8.1 H Lymph # (Auto) 2.1 [place] # (Auto) 1.1 H Eos # (Auto) 0.1 Baso # (Auto) 0.1 WBC Differential . Differential Comment Auto diff final Sodium Potassium Chloride Carbon Dioxide Anion Gap BUN Creatinine Estimated GFR Random Glucose Calcium Magnesium Triglycerides 92 Cholesterol 189 LDL Cholesterol, Calc 114 H HDL Cholesterol 56.8 Cholesterol/HDL Ratio 3.32 TSH Free T4 Free T3 Nasal Screen MRSA (PCR) Mrsa detected 03/22/18 03/23/18 03/23/18 21:53 03:19 03:19 WBC 10.9 RBC 4.42 Hgb 13.5 Hct 39.3 MCV 88.8 MCH 30.4 MCHC 34.3 RDW 13.6 Plt Count 214 MPV 9.0 Neut % (Auto) 68.4 Lymph % (Auto) 18.3 [place] % (Auto) 11.4 H Eos % (Auto) 0.6 Baso % (Auto) 1.3 Neut # (Auto) 7.5 Lymph # (Auto) 2.0 [place] # (Auto) 1.2 H Eos # (Auto) 0.1 Baso # (Auto) 0.1 WBC Differential . Differential Comment Auto diff final Sodium 143 Potassium 3.8 Chloride 111 H Carbon Dioxide 25.3 Anion Gap 7 BUN 12 Creatinine 0.78 Estimated GFR 70 L Random Glucose 121 H Calcium 8.2 L Magnesium 2.0 Triglycerides Cholesterol LDL Cholesterol, Calc HDL Cholesterol Cholesterol/HDL Ratio TSH 0.368 Free T4 1.28 Free T3 1.77 L Nasal Screen MRSA (PCR) - Imaging Impressions Carotid Doppler Study 03/22/18 00:00 CONCLUSION: Limited but negative examination for a hemodynamically significant carotid stenosis. Lonnie Reese MD FACR Assessment and Plan (1) Left middle cerebral artery stroke Status: Acute Code(s): I63.512 - Cerebral infarction due to unspecified occlusion or stenosis of left middle cerebral artery - Plan Assessment: 1. Left middle cerebral artery ischemic stroke 2. Right hemiparesis 3. Aphasia 4. History of Parkinson's disease 5. History of dementia 6. Hypertension 7. Hypothyroidism Recommendations: 1. Continue PT. Providing ROM and bed mobility which is dependent. Nursing reports that patient up to sitting position in bed 2. OT for ROM and ADL's which are currently dependent 3. ST for swallow and high risk for aspiration. NPO and PEG recommended. GI has been consulted 4. Case management is addressing discharge planning likely back to [facility] prison care where patient has previously been residing 5. Continue to reposition q 2 hours and monitor skin carefully 6. Will continue to follow while hospitalized and at discharge as appropriate Thank you for this consult.
--- NOTE | 2018-03-23 14:45 | P.DIET ---
Nutritional Evaluation Type of nutrition evaluation: initial Nutrition consult regarding: Tube Feeding Nutrition screening: [facility] (TFing 03/23) Objective - Diagnosis L MCA, ischemic stroke - Objective % IBW: 134 (IBW = 120#) Body Weight Used for Calculations: IBW (54.5 kg) Energy Needs - Lower Range (kCal/kg): 25 Energy Needs - Upper Range (kCal/kg): 30 Lower Limit kCal/kg (kCals): 1,364 Upper Limit kCal/kg (kCals): 1,635 Lower Limit Protein Factor (Grams per Kg): 1.0 Upper Limit Protein Factor (Grams per Kg): 1.5 Lower Protein Needs (Protein): 55 Upper Protein Needs (Protein): 82 Dietitian Reviewed in Medical Record: Curent medications, Intake & Output, Labs , Medical history, Tube feeding Diet Order: NPO Speech Therapy Recommendations: Yes Assessment Assessment: Pt is at high nutrition risk 2' to her need for TFing. To meet needs, recommend Jevity 1.5 @ 45 mls/hr to provide 1620 kcals, 69 gms protein and 821 mls of free water. Pt will need an additional 200 ml water flush q 6 hrs to meet fluid needs. Recommendations: Jevity 1.5 @ 45 mls/hr goal Dietitian to Monitor: Lab values, Intake & Output, Tube feeding tolerance, Weight change, Swallow recommendations, Medical course
[2018-03-23] MEDS: Sod Chloride 0.9% Inj 1,000 ML IV.CONT SCH (16:15)
--- NOTE | 2018-03-23 18:06 | P.PNPAL ---
Reason for Visit Reason for visit: a. To assist with evaluation and management of symptoms including: b. To assist medical decision maker(s) with: better understanding of current medical conditions; weighing benefits/burdens of medical treatment options; making medical treatment decisions. Subjective Subjective/Interval History: Pt seen today to follow up on comfort, goals. S/p ST eval- +aspiration risk, recommended NPO. GI consulted for PEG placement, tentatively planned for tomorrow. Neurology following; ordered for carotid u/s, echo, lipid panel. CBC stable/unremarkable. Pt able to participate w PT, ambulate short distance w assist. Also participating w OT, weakness noted with ADL attempts. iron miner blasting eval= recommend jevity at 45 ml hr once feeding tube in place. Pt seen in room, no visitors present. Patient is alert, tracks examiner. She does follow some simple commands when demonstrated however with delay and appears to need demonstration. Nonverbal she attempts to make some sounds however no actual words just a few garbled sounds. No apparent distress. Nursing reported breakdown/excoriation at perineal area examined with nursing assistance note skin is macerated, red at this time will order barrier cream and wound care evaluation for any other recommendations to aid this area and healing. She was incontinent prior to hospitalization I suspect chronic incontinence combined with now bedbound status compounding this problem. Currently has wick external catheter in place of though she may benefit from a Lopes catheter to avoid further breakdown of labial area. Family/Friend Interactions: After exam call to daughter updated her on current conditions, assessments, various therapy efforts, GI consultation, based on ST evaluation. Reviewed with her risks/benefits of feeding tubes. Review with her if patient remains stable will likely transfer out of ICU over the course of the weekend, though additionally reviewed that the patient will need ongoing evaluations daily and her clinical course could change at any time given her advanced age, acute stroke and comorbidities. She expresses concern about patient schizophrenia history and previously being treated with the drug Latuda. She feels this may have contributed to the patient having a stroke, and does not want the patient to be restarted on Latuda. She request that psychiatry evaluate the patient for different regimen for management of underlying schizophrenia, dementia. Review that additional diagnostics are pending per neurology to further evaluate potential causes of CVA, reviewed that causes can be multifactorial and patient may still remain at risk for CVA even without this psychiatric medication. All questions answered to the best of my ability. She expresses goals remain aggressive she and her brother have spoken and wish to give the patient a few days with ongoing aggressive treatments to see how she does. Advance Directives Documented care wishes:: Living will documents in standard verbiage in the presence of terminal, end- stage, or vegetative condition would not want artificially prolonging measures but would want comfort only. Objective Vital Signs: Vital Signs 03/22/18 18:00 03/22/18 20:00 03/22/18 20:23 Temperature Pulse Rate 89 103 H Respiratory Rate 27 H Blood Pressure Pulse Oximetry 94 L 92 L 03/22/18 20:24 03/22/18 20:30 03/22/18 20:50 Temperature Pulse Rate 72 70 69 Respiratory Rate 24 26 H 26 H Blood Pressure 196/82 H 179/72 H 145/67 H Pulse Oximetry 92 L 93 L 95 03/22/18 21:00 03/22/18 21:20 03/22/18 21:50 Temperature Pulse Rate 76 87 92 H Respiratory Rate 27 H 23 18 Blood Pressure 204/82 H 221/91 H Pulse Oximetry 94 L 93 L 93 L 03/22/18 21:53 03/22/18 22:00 03/22/18 22:20 Temperature Pulse Rate 89 89 81 Respiratory Rate 18 23 12 Blood Pressure 196/86 H 187/77 H Pulse Oximetry 93 L 95 92 L 03/22/18 22:50 03/22/18 22:57 03/22/18 23:00 Temperature Pulse Rate 92 H 94 H 96 H Respiratory Rate 21 23 28 H Blood Pressure 194/118 H 198/90 H Pulse Oximetry 94 L 93 L 93 L 03/22/18 23:20 03/22/18 23:50 03/23/18 00:00 Temperature 99.1 F Pulse Rate 79 87 87 Respiratory Rate 12 18 19 Blood Pressure 188/78 H 191/86 H Pulse Oximetry 90 L 93 L 93 L 03/23/18 00:20 03/23/18 00:50 03/23/18 01:00 Temperature Pulse Rate 89 88 85 Respiratory Rate 16 22 21 Blood Pressure 196/81 H 210/82 H Pulse Oximetry 92 L 92 L 93 L 03/23/18 01:20 03/23/18 01:50 03/23/18 01:52 Temperature Pulse Rate 87 87 92 H Respiratory Rate 32 H 30 H 31 H Blood Pressure 144/92 H 198/119 H 183/88 H Pulse Oximetry 94 L 94 L 94 L 03/23/18 02:00 03/23/18 02:20 03/23/18 02:50 Temperature Pulse Rate 78 85 80 Respiratory Rate 22 30 H 27 H Blood Pressure 183/76 H 193/72 H Pulse Oximetry 92 L 94 L 93 L 03/23/18 03:00 03/23/18 03:20 03/23/18 03:50 Temperature Pulse Rate 99 H 83 79 Respiratory Rate 27 H 31 H 22 Blood Pressure 201/82 H 172/78 H Pulse Oximetry 94 L 95 94 L 03/23/18 04:00 03/23/18 04:20 03/23/18 04:50 Temperature 98.7 F Pulse Rate 78 86 79 Respiratory Rate 19 21 23 Blood Pressure 167/77 H 150/67 H Pulse Oximetry 93 L 93 L 94 L 03/23/18 05:00 03/23/18 05:20 03/23/18 05:50 Temperature Pulse Rate 101 H 77 76 Respiratory Rate 19 22 17 Blood Pressure 171/75 H 161/63 H Pulse Oximetry 95 93 L 94 L 03/23/18 06:00 03/23/18 09:55 Temperature Pulse Rate 75 Respiratory Rate 25 H Blood Pressure Pulse Oximetry 94 L 95 Intake & Output 03/22/18 03/23/18 03/23/18 18:59 06:59 18:59 Intake Total 1000 / 1000 1000 / 1000 Output Total 850 / 850 Balance 150 / 150 1000 / 1000 Weight 73.2 kg Intake: IV 1000 / 1000 1000 / 1000 NS Inj 1,000 ML @ 70 mls/hr IV. 1000 / 1000 1000 / 1000 CONT .[id number] [facility] Rx#:[id number] Output: Urine Amount (Catheter) 850 / 850 Female External 850 / 850 Other: Date of Last Bowel Movement 03/22/18 03/23/18 03/23/18 Physical Exam: CONSTITUTIONAL/GENERAL: This is an adequately nourished patient, alert TUBES/LINES/DRAINS: Peripheral IV right upper extremity, SCDs SKIN: No jaundice, rashes, or lesions. Few areas of ecchymosis to arms. No wounds seen anteriorly. Skin warm and dry. HEAD: Atraumatic. Normocephalic. EYES: Pupils equal and round and reactive. Extraocular motions intact. No scleral icterus. No injection or drainage. Fundi not examined. CARDIOVASCULAR: Regular rate and rhythm without murmur. Occasional PVC noted. Peripheral pulses symmetric. Trace pedal edema. RESPIRATORY/CHEST: Symmetric, unlabored respirations. Clear to auscultation. Breath sounds equal bilaterally. No wheezes, rales, or rhonchi. GASTROINTESTINAL: Abdomen soft, non-tender, nondistended. No palpable masses. No guarding. Bowel sounds present. GENITOURINARY: Without palpable bladder distension. External wick catheter in place. Redness, excoriation to perineum, labia which extends to gluteal fold. NEUROLOGICAL: Awake and alert. Nonverbal. tracking examiner. Follows simple commands when demonstrated to do so. Moves 4 extremities very weakly and with delay to command. Attempts to verbalize--few garbled sounds made. left upper and lower stronger than right upper and lower. PSYCHIATRIC: Calm no apparent anxiety Diagnostic Tests Laboratory: Laboratory Results - last 72 hr 03/22/18 03/22/18 03/22/18 06:58 07:00 07:00 WBC 14.8 H RBC 4.35 Hgb 13.1 POC Hgb (Calc) Hct 39.7 POC Hct MCV 91.3 MCH 30.2 MCHC 33.0 RDW 13.5 Plt Count 233 MPV 8.5 Neut % (Auto) 85.9 H Lymph % (Auto) 6.4 L [place] % (Auto) 7.2 Eos % (Auto) 0.0 Baso % (Auto) 0.5 Neut # (Auto) 12.7 H Lymph # (Auto) 0.9 L [place] # (Auto) 1.1 H Eos # (Auto) 0.0 Baso # (Auto) 0.1 WBC Differential . Differential Comment Auto diff final PT 10.3 INR 1.0 APTT 22.6 L Fibrinogen 410 H POC Sodium Sodium POC Potassium Potassium POC Chloride Chloride Carbon Dioxide Anion Gap POC BUN BUN Creatinine POC Creatinine Estimated GFR POC Glucose 112 H Random Glucose Calcium Magnesium Total Creatine Kinase CK-MB (CK-2) CK-MB (CK-2) % Troponin I Triglycerides Cholesterol LDL Cholesterol, Calc HDL Cholesterol Cholesterol/HDL Ratio Vitamin B12 TSH Free T4 Free T3 Urine Color Urine Clarity Urine pH Ur Specific Martha Urine Protein Urine Glucose (UA) Urine Ketones Urine Occult Blood Urine Nitrate Urine Bilirubin Urine Urobilinogen Ur Leukocyte Esterase Urine RBC Urine WBC Calcium Oxalate Crystal Hyaline Casts Granular Casts Urine Mucus Micro UA Comment Ur Microscopic Review Urine Culture Comments Nasal Screen MRSA (PCR) Urine Opiates Screen Ur Barbiturates Screen Ur Amphetamines Screen U Benzodiazepines Scrn Urine Cocaine Screen U Cannabinoids Screen Blood Type Blood Type Recheck Antibody Screen 03/22/18 03/22/18 03/22/18 07:00 07:00 07:00 WBC RBC Hgb POC Hgb (Calc) 13.3 Hct POC Hct 39.0 MCV MCH MCHC RDW Plt Count MPV Neut % (Auto) Lymph % (Auto) Seward % (Auto) Eos % (Auto) Baso % (Auto) Neut # (Auto) Lymph # (Auto) Seward # (Auto) Eos # (Auto) Baso # (Auto) WBC Differential Differential Comment PT INR APTT Fibrinogen POC Sodium 144 Sodium POC Potassium 4.2 Potassium POC Chloride 107 Chloride Carbon Dioxide Anion Gap POC BUN 17 BUN Creatinine POC Creatinine 1.0 Estimated GFR POC Glucose 129 H Random Glucose Calcium Magnesium Total Creatine Kinase 518 H CK-MB (CK-2) 7.0 H CK-MB (CK-2) % 1.4 Troponin I 0.06 H Triglycerides Cholesterol LDL Cholesterol, Calc HDL Cholesterol Cholesterol/HDL Ratio Vitamin B12 TSH 0.777 Free T4 Free T3 Urine Color Urine Clarity Urine pH Ur Specific Martha Urine Protein Urine Glucose (UA) Urine Ketones Urine Occult Blood Urine Nitrate Urine Bilirubin Urine Urobilinogen Ur Leukocyte Esterase Urine RBC Urine WBC Calcium Oxalate Crystal Hyaline Casts Granular Casts Urine Mucus Micro UA Comment Ur Microscopic Review Urine Culture Comments Nasal Screen MRSA (PCR) Urine Opiates Screen Ur Barbiturates Screen Ur Amphetamines Screen U Benzodiazepines Scrn Urine Cocaine Screen U Cannabinoids Screen Blood Type A Negative Blood Type Recheck Required Antibody Screen Negative 03/22/18 03/22/18 03/22/18 07:00 07:00 07:50 WBC RBC Hgb POC Hgb (Calc) Hct POC Hct MCV MCH MCHC RDW Plt Count MPV Neut % (Auto) Lymph % (Auto) Seward % (Auto) Eos % (Auto) Baso % (Auto) Neut # (Auto) Lymph # (Auto) Seward # (Auto) Eos # (Auto) Baso # (Auto) WBC Differential Differential Comment PT INR APTT Fibrinogen POC Sodium Sodium POC Potassium Potassium POC Chloride Chloride Carbon Dioxide Anion Gap POC BUN BUN Creatinine POC Creatinine Estimated GFR POC Glucose Random Glucose Calcium Magnesium Total Creatine Kinase CK-MB (CK-2) CK-MB (CK-2) % Troponin I Triglycerides 92 Cholesterol 189 LDL Cholesterol, Calc 114 H HDL Cholesterol 56.8 Cholesterol/HDL Ratio 3.32 Vitamin B12 175 L TSH Free T4 Free T3 Urine Color Urine Clarity Urine pH Ur Specific Martha Urine Protein Urine Glucose (UA) Urine Ketones Urine Occult Blood Urine Nitrate Urine Bilirubin Urine Urobilinogen Ur Leukocyte Esterase Urine RBC Urine WBC Calcium Oxalate Crystal Hyaline Casts Granular Casts Urine Mucus Micro UA Comment Ur Microscopic Review Urine Culture Comments Nasal Screen MRSA (PCR) Urine Opiates Screen Neg Ur Barbiturates Screen Neg Ur Amphetamines Screen Neg U Benzodiazepines Scrn Neg Urine Cocaine Screen Neg U Cannabinoids Screen Neg Blood Type Blood Type Recheck Antibody Screen 03/22/18 03/22/18 03/22/18 07:50 18:00 21:53 WBC 11.4 H RBC 4.42 Hgb 13.0 POC Hgb (Calc) Hct 39.8 POC Hct MCV 90.1 MCH 29.4 MCHC 32.6 RDW 13.3 Plt Count 220 MPV 8.4 Neut % (Auto) 70.8 H Lymph % (Auto) 18.1 Seward % (Auto) 9.3 H Eos % (Auto) 0.6 Baso % (Auto) 1.2 Neut # (Auto) 8.1 H Lymph # (Auto) 2.1 Seward # (Auto) 1.1 H Eos # (Auto) 0.1 Baso # (Auto) 0.1 WBC Differential . Differential Comment Auto diff final PT INR APTT Fibrinogen POC Sodium Sodium POC Potassium Potassium POC Chloride Chloride Carbon Dioxide Anion Gap POC BUN BUN Creatinine POC Creatinine Estimated GFR POC Glucose Random Glucose Calcium Magnesium Total Creatine Kinase CK-MB (CK-2) CK-MB (CK-2) % Troponin I Triglycerides Cholesterol LDL Cholesterol, Calc HDL Cholesterol Cholesterol/HDL Ratio Vitamin B12 TSH Free T4 Free T3 Urine Color Yellow Urine Clarity Hazy H Urine pH 6.0 Ur Specific Martha 1.034 Urine Protein Negative Urine Glucose (UA) Negative Urine Ketones Negative Urine Occult Blood Negative Urine Nitrate Negative Urine Bilirubin Negative Urine Urobilinogen Less than 2 Ur Leukocyte Esterase Negative Urine RBC 5 H Urine WBC 2 Calcium Oxalate Crystal Few H Hyaline Casts 1 Granular Casts 1 Urine Mucus Few H Micro UA Comment Culture not ind Ur Microscopic Review Not Reportable Urine Culture Comments Culture not ind Nasal Screen MRSA (PCR) Mrsa detected Urine Opiates Screen Ur Barbiturates Screen Ur Amphetamines Screen U Benzodiazepines Scrn Urine Cocaine Screen U Cannabinoids Screen Blood Type Blood Type Recheck Antibody Screen 03/22/18 03/23/18 03/23/18 21:53 03:19 03:19 WBC 10.9 RBC 4.42 Hgb 13.5 POC Hgb (Calc) Hct 39.3 POC Hct MCV 88.8 MCH 30.4 MCHC 34.3 RDW 13.6 Plt Count 214 MPV 9.0 Neut % (Auto) 68.4 Lymph % (Auto) 18.3 Seward % (Auto) 11.4 H Eos % (Auto) 0.6 Baso % (Auto) 1.3 Neut # (Auto) 7.5 Lymph # (Auto) 2.0 Seward # (Auto) 1.2 H Eos # (Auto) 0.1 Baso # (Auto) 0.1 WBC Differential . Differential Comment Auto diff final PT INR APTT Fibrinogen POC Sodium Sodium 143 POC Potassium Potassium 3.8 POC Chloride Chloride 111 H Carbon Dioxide 25.3 Anion Gap 7 POC BUN BUN 12 Creatinine 0.78 POC Creatinine Estimated GFR 70 L POC Glucose Random Glucose 121 H Calcium 8.2 L Magnesium 2.0 Total Creatine Kinase CK-MB (CK-2) CK-MB (CK-2) % Troponin I Triglycerides Cholesterol LDL Cholesterol, Calc HDL Cholesterol Cholesterol/HDL Ratio Vitamin B12 TSH 0.368 Free T4 1.28 Free T3 1.77 L Urine Color Urine Clarity Urine pH Ur Specific Martha Urine Protein Urine Glucose (UA) Urine Ketones Urine Occult Blood Urine Nitrate Urine Bilirubin Urine Urobilinogen Ur Leukocyte Esterase Urine RBC Urine WBC Calcium Oxalate Crystal Hyaline Casts Granular Casts Urine Mucus Micro UA Comment Ur Microscopic Review Urine Culture Comments Nasal Screen MRSA (PCR) Urine Opiates Screen Ur Barbiturates Screen Ur Amphetamines Screen U Benzodiazepines Scrn Urine Cocaine Screen U Cannabinoids Screen Blood Type Blood Type Recheck Antibody Screen 03/23/18 16:41 WBC RBC Hgb POC Hgb (Calc) Hct POC Hct MCV MCH MCHC RDW Plt Count MPV Neut % (Auto) Lymph % (Auto) [place] % (Auto) Eos % (Auto) Baso % (Auto) Neut # (Auto) Lymph # (Auto) [place] # (Auto) Eos # (Auto) Baso # (Auto) WBC Differential Differential Comment PT INR APTT Fibrinogen POC Sodium Sodium POC Potassium Potassium POC Chloride Chloride Carbon Dioxide Anion Gap POC BUN BUN Creatinine POC Creatinine Estimated GFR POC Glucose 93 Random Glucose Calcium Magnesium Total Creatine Kinase CK-MB (CK-2) CK-MB (CK-2) % Troponin I Triglycerides Cholesterol LDL Cholesterol, Calc HDL Cholesterol Cholesterol/HDL Ratio Vitamin B12 TSH Free T4 Free T3 Urine Color Urine Clarity Urine pH Ur Specific Martha Urine Protein Urine Glucose (UA) Urine Ketones Urine Occult Blood Urine Nitrate Urine Bilirubin Urine Urobilinogen Ur Leukocyte Esterase Urine RBC Urine WBC Calcium Oxalate Crystal Hyaline Casts Granular Casts Urine Mucus Micro UA Comment Ur Microscopic Review Urine Culture Comments Nasal Screen MRSA (PCR) Urine Opiates Screen Ur Barbiturates Screen Ur Amphetamines Screen U Benzodiazepines Scrn Urine Cocaine Screen U Cannabinoids Screen Blood Type Blood Type Recheck Antibody Screen Result Diagrams: 03/23/18 03:19 03/22/18 21:53 Imaging: Impressions Carotid Doppler Study 03/22/18 00:00 CONCLUSION: Limited but negative examination for a hemodynamically significant carotid stenosis. Lonnie Reese MD FACR Chest X-Ray 03/22/18 06:57 CONCLUSION: No evidence of acute cardiopulmonary process. Head CT 03/22/18 06:57 CONCLUSION: 1. Left temporoparietal hypodensity characteristic of a nonhemorrhagic infarct 2. Aging brain with generalized volume loss and chronic ischemic white matter changes. 3. No significant mass effect. Report called by Dr. Stuart to Dr. Fuentes at 720. Head CTA 03/22/18 06:57 CONCLUSION: No evidence of proximal MCA occlusion or filling defect. Report was called by [Dr. Stuart to Dr. Vega at 750. ] Neck CTA 03/22/18 06:57 CONCLUSION: 1. Nearly nondiagnostic CTA examination due to suboptimal contrast administration following infiltration of patient's IV line. 2. There is very minimal atherosclerotic plaque involving the arch and left carotid bulb. The carotid and vertebral arteries appear grossly patent. CT CAD 03/22/18 07:05 CONCLUSION: Physiological brain perfusion parameters with RAPID analysis as above. The decision for consideration of therapy is multi factorial and multi disciplinary relying on subjective and objective clinical data. This data is not construed or intended to be the sole determinant of treatment eligibility. Assessment and Plan - Disease Oriented Problem List (1) Acute ischemic stroke (2) Right hemiparesis (3) Aphasia (4) Leukocytosis (5) Parkinson disease (6) Dementia (7) Hypertension (8) Schizophrenia (9) Hypothyroidism Pertinent Non-Medical Issues: Psychosocial: Patient originally from [place]. Lived in [place] for some years. Has 1 son, 1 estranged from son. Daughter is named healthcare surrogate and POA. She has a long history of schizophrenia, and has not been able to work much of her life secondary to this. 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 HER 2 children were primarily raised by her and his family. Stephanie has reconnected with pt in the past several years while assisting her with caregiving. Spiritual: Adventist Legal:Patient is not capacitated secondary to underlying history of dementia, schizophrenia. Now here with acute stroke. daughter Stephanie has documentation naming her as healthcare surrogate, patient also has living will stating that in the presence of terminal, end-stage or vegetative condition would not want heroic or artificially prolonging measures Ethical issues impacting care: No ethical issues identified Important Contacts: Daughter Stephanie Frank (healthcare surrogate ) gifty [phone] / [phone] Son Tom Frank [phone] . Prognosis: This patient with an underlying history of dementia has had large acute left temporoparietal stroke with significant hemiplegia, aphasia. High risk for aspiration, further complications and sequelae secondary to stroke and advanced age. May be appropriate for hospice if goals compatible. Plan: * Legal decision maker: patient is not capacitated secondary to underlying history of dementia, schizophrenia. Now here with acute stroke. daughter Stephanie has documentation naming her as healthcare surrogate, patient also has living will stating that in the presence of terminal, end-stage or vegetative condition would not want heroic or artificially prolonging measures * Goals: Goals right now are aggressive though daughter and healthcare surrogate is open to further discussion as clinical course evolves. Daughter agrees they would proceed with feeding tube.She expresses goals remain aggressive she and her brother have spoken and wish to give the patient a few days with ongoing aggressive treatments to see how she does. * CODE STATUS: Full code * SYMPTOMS: --Dysphagia-high risk for aspiration per ST evaluation. Poor oral reference , pocketing of food. Secondary to significant CVA. Ongoing ST evaluation, n.p.o. for now. GI consulted for PEG tube placement. --Weakness/hemiplegia-significant hemiplegia status post CVA; large acute left temporoparietal stroke . Underlying cognitive deficits are likely to limit success of physical rehabilitation efforts. --Dyspnea-none currently however high risk for aspiration and associated dyspnea, and associated respiratory decline, dyspnea. --Agitation/confusion-patient with underlying history of schizophrenia, Parkinson's, dementia. Now here with acute CVA. Very high risk for agitation, which could contribute to worsening respiratory status, worsening clinical condition. At this point avoid sedatives in order to protect respiratory and airway status. Patient on long-term oral psychiatric meds which are currently not able to be given due to no feeding access and safe way to swallow. It would be priority to resume these home medications as there is limited availability of IM, IV which would be substitutions for her usual meds. Daughter has requested psychiatry evaluation, she is concerned that patient's Latuda may have been a factor in her CVA. She wishes her to be started on a different medication for her underlying schizophrenia, dementia. --Wound-patient with excoriated jackson-skin, some maceration appears to be due to chronic moisture. External wick catheter is in place. May consider Lopes catheter to keep this area dry , allow healing ? For now I have ordered petroleum and zinc barrier cream to be applied by nursing, as well as wound nurse consultation for any additional recommendations. --No chronic underlying pain syndromes according to daughter. * Palliative care will continue to follow during hospital course as condition evolves, to assist patient/decision-maker with understanding of medical conditions, weighing benefits/burdens of treatment options, for clarification of goals of treatment. Additionally will assist with any symptoms of palliative concern
--- NOTE | 2018-03-23 20:17 | P.PNNEU ---
Subjective Subjective Comments: no new neurologic sx. Still not able to speak and right side weak Active Medications: Active Medications Albuterol (Duoneb Neb (Prn)) 1 ampul NEB Q2HR NEB PRN PRN Reason: WHEEZING Aspirin (Aspirin Supp) 300 mg RECTAL DAILY [facility] Last Admin: 03/23/18 10:37 Dose: 300 mg Bisacodyl (Dulcolax Supp) 10 mg RECTAL DAILY PRN PRN Reason: SEVERE CONSITIPATION Chlorhexidine Gluconate (Chlorhexidine 2% Cloth) 3 pack TOPICAL DAILY@0400 [facility] Stop: 03/28/18 03:59 Last Admin: 03/23/18 03:14 Dose: 3 pack Chlorhexidine Gluconate (Chlorhexidine 2% Cloth) 3 pack TOPICAL DAILY@0400 PRN PRN Reason: Extra cloth needed Stop: 03/28/18 03:59 Famotidine (Pepcid Pf Inj) 20 mg IV.PUSH Q12HR [facility] Last Admin: 03/23/18 10:37 Dose: 20 mg Sodium Chloride (Ns Inj) 1,000 mls @ 70 mls/hr IV.CONT .[id number] [facility] Last Admin: 03/23/18 16:15 Dose: 70 mls/hr Cefazolin Sodium/Dextrose (Ancef 1 Gm Premix Inj) 1 gm in 50 mls @ 100 mls/hr IV.SIG FRONT OFFICE COORDINATOR [facility] Petrolatum/Zinc Oxide (Sensi-Care Protective Barrier Oint) 1 applicatio TOPICAL DAILY [facility] Sodium Chloride (Ns Flush) 2 ml IV.FLUSH BID [facility] Last Admin: 03/23/18 10:37 Dose: 2 ml Sodium Chloride (Ns Flush) 2 ml IV.FLUSH PRN PRN PRN Reason: FLUSH AFTER USING IV ACCESS Allergies/Adverse Reactions: Allergies Allergy/AdvReac Type Severity Reaction Status Date / Time No Known Allergies Allergy Verified 03/22/18 06:59 Physical Exam Vital signs: Vital Signs 03/22/18 20:23 03/22/18 20:24 03/22/18 20:30 Temperature Pulse Rate 72 70 Respiratory Rate 24 26 H Blood Pressure 196/82 H 179/72 H Pulse Oximetry 92 L 92 L 93 L 03/22/18 20:50 03/22/18 21:00 03/22/18 21:20 Temperature Pulse Rate 69 76 87 Respiratory Rate 26 H 27 H 23 Blood Pressure 145/67 H 204/82 H Pulse Oximetry 95 94 L 93 L 03/22/18 21:50 03/22/18 21:53 03/22/18 22:00 Temperature Pulse Rate 92 H 89 89 Respiratory Rate 18 18 23 Blood Pressure 221/91 H 196/86 H Pulse Oximetry 93 L 93 L 95 03/22/18 22:20 03/22/18 22:50 03/22/18 22:57 Temperature Pulse Rate 81 92 H 94 H Respiratory Rate 12 21 23 Blood Pressure 187/77 H 194/118 H 198/90 H Pulse Oximetry 92 L 94 L 93 L 03/22/18 23:00 03/22/18 23:20 03/22/18 23:50 Temperature Pulse Rate 96 H 79 87 Respiratory Rate 28 H 12 18 Blood Pressure 188/78 H 191/86 H Pulse Oximetry 93 L 90 L 93 L 03/23/18 00:00 03/23/18 00:20 03/23/18 00:50 Temperature 99.1 F Pulse Rate 87 89 88 Respiratory Rate 19 16 22 Blood Pressure 196/81 H 210/82 H Pulse Oximetry 93 L 92 L 92 L 03/23/18 01:00 03/23/18 01:20 03/23/18 01:50 Temperature Pulse Rate 85 87 87 Respiratory Rate 21 32 H 30 H Blood Pressure 144/92 H 198/119 H Pulse Oximetry 93 L 94 L 94 L 03/23/18 01:52 03/23/18 02:00 03/23/18 02:20 Temperature Pulse Rate 92 H 78 85 Respiratory Rate 31 H 22 30 H Blood Pressure 183/88 H 183/76 H Pulse Oximetry 94 L 92 L 94 L 03/23/18 02:50 03/23/18 03:00 03/23/18 03:20 Temperature Pulse Rate 80 99 H 83 Respiratory Rate 27 H 27 H 31 H Blood Pressure 193/72 H 201/82 H Pulse Oximetry 93 L 94 L 95 03/23/18 03:50 03/23/18 04:00 03/23/18 04:20 Temperature 98.7 F Pulse Rate 79 78 86 Respiratory Rate 22 19 21 Blood Pressure 172/78 H 167/77 H Pulse Oximetry 94 L 93 L 93 L 03/23/18 04:50 03/23/18 05:00 03/23/18 05:20 Temperature Pulse Rate 79 101 H 77 Respiratory Rate 23 19 22 Blood Pressure 150/67 H 171/75 H Pulse Oximetry 94 L 95 93 L 03/23/18 05:50 03/23/18 06:00 03/23/18 07:00 Temperature Pulse Rate 76 75 77 Respiratory Rate 17 25 H 24 Blood Pressure 161/63 H Pulse Oximetry 94 L 94 L 95 03/23/18 07:20 03/23/18 07:50 03/23/18 08:00 Temperature 98.2 F Pulse Rate 67 72 86 Respiratory Rate 19 16 34 H Blood Pressure 166/67 H 159/100 H Pulse Oximetry 95 95 95 03/23/18 08:11 03/23/18 08:20 03/23/18 08:50 Temperature Pulse Rate 85 80 72 Respiratory Rate 32 H 38 H 24 Blood Pressure 189/78 H 188/79 H 188/82 H Pulse Oximetry 95 95 93 L 03/23/18 09:00 03/23/18 09:20 03/23/18 09:55 Temperature Pulse Rate 76 73 Respiratory Rate 26 H 14 Blood Pressure 204/81 H Pulse Oximetry 93 L 95 95 03/23/18 09:58 03/23/18 09:59 03/23/18 10:00 Temperature Pulse Rate 74 74 80 Respiratory Rate 19 18 17 Blood Pressure 184/80 H 169/62 H Pulse Oximetry 95 95 96 03/23/18 10:08 03/23/18 11:00 03/23/18 11:15 Temperature Pulse Rate 61 76 75 Respiratory Rate 12 20 16 Blood Pressure 191/78 H 196/125 H 230/91 H Pulse Oximetry 93 L 97 96 03/23/18 11:19 03/23/18 12:00 03/23/18 13:00 Temperature 98.4 F Pulse Rate 78 60 70 Respiratory Rate 15 30 H 16 Blood Pressure 191/79 H 188/72 H Pulse Oximetry 95 94 L 95 03/23/18 13:03 03/23/18 14:00 03/23/18 15:00 Temperature Pulse Rate 83 68 69 Respiratory Rate 17 14 25 H Blood Pressure 213/94 H 180/77 H 174/74 H Pulse Oximetry 94 L 92 L 95 03/23/18 16:00 03/23/18 17:00 03/23/18 18:00 Temperature 98.9 F Pulse Rate 64 84 72 Respiratory Rate 12 21 Blood Pressure 178/70 H 189/74 H Pulse Oximetry 94 L 95 Intake & Output 03/23/18 03/23/18 03/24/18 06:59 18:59 06:59 Intake Total 1000 / 1000 1000 / 1000 Output Total 850 / 850 300 / 300 Balance 150 / 150 700 / 700 Weight 73.2 kg Intake: IV 1000 / 1000 1000 / 1000 NS Inj 1,000 ML @ 70 mls/hr IV. 1000 / 1000 1000 / 1000 [facility] .[id number] [facility] Rx#:[id number] Output: Urine Amount (Catheter) 850 / 850 300 / 300 Female External 850 / 850 300 / 300 Other: # Voids 3 # Incontinent Voids 3 Date of Last Bowel Movement 03/23/18 03/23/18 # Bowel Movements 1 - Routine Neurological Exam alert, expressive aphasia. follow simple commands Cn --RUMN CN 7 palsey MOTOR 3/5 RUE and RLE - Urinary Catheter Management Straight Cath placed during this visit: yes, but has since been removed by the nurse Reason for continuing: Decision to DC catheter Insertion date: 03/22/18 Insertion time: 07:10 Removal date: 03/22/18 Removal time: 07:11 Female External Cath placed during this visit: no Objective Laboratory Results - last 24 hr 03/22/18 03/22/18 03/22/18 07:00 18:00 21:53 WBC 11.4 H RBC 4.42 Hgb 13.0 Hct 39.8 MCV 90.1 MCH 29.4 MCHC 32.6 RDW 13.3 Plt Count 220 MPV 8.4 Neut % (Auto) 70.8 H Lymph % (Auto) 18.1 Kings % (Auto) 9.3 H Eos % (Auto) 0.6 Baso % (Auto) 1.2 Neut # (Auto) 8.1 H Lymph # (Auto) 2.1 Kings # (Auto) 1.1 H Eos # (Auto) 0.1 Baso # (Auto) 0.1 WBC Differential . Differential Comment Auto diff final Sodium Potassium Chloride Carbon Dioxide Anion Gap BUN Creatinine Estimated GFR POC Glucose Random Glucose Calcium Magnesium Triglycerides 92 Cholesterol 189 LDL Cholesterol, Calc 114 H HDL Cholesterol 56.8 Cholesterol/HDL Ratio 3.32 TSH Free T4 Free T3 Nasal Screen MRSA (PCR) Mrsa detected 03/22/18 03/23/18 03/23/18 21:53 03:19 03:19 WBC 10.9 RBC 4.42 Hgb 13.5 Hct 39.3 MCV 88.8 MCH 30.4 MCHC 34.3 RDW 13.6 Plt Count 214 MPV 9.0 Neut % (Auto) 68.4 Lymph % (Auto) 18.3 Kings % (Auto) 11.4 H Eos % (Auto) 0.6 Baso % (Auto) 1.3 Neut # (Auto) 7.5 Lymph # (Auto) 2.0 Kings # (Auto) 1.2 H Eos # (Auto) 0.1 Baso # (Auto) 0.1 WBC Differential . Differential Comment Auto diff final Sodium 143 Potassium 3.8 Chloride 111 H Carbon Dioxide 25.3 Anion Gap 7 BUN 12 Creatinine 0.78 Estimated GFR 70 L POC Glucose Random Glucose 121 H Calcium 8.2 L Magnesium 2.0 Triglycerides Cholesterol LDL Cholesterol, Calc HDL Cholesterol Cholesterol/HDL Ratio TSH 0.368 Free T4 1.28 Free T3 1.77 L Nasal Screen MRSA (PCR) 03/23/18 16:41 WBC RBC Hgb Hct MCV MCH MCHC RDW Plt Count MPV Neut % (Auto) Lymph % (Auto) Kings % (Auto) Eos % (Auto) Baso % (Auto) Neut # (Auto) Lymph # (Auto) Kings # (Auto) Eos # (Auto) Baso # (Auto) WBC Differential Differential Comment Sodium Potassium Chloride Carbon Dioxide Anion Gap BUN Creatinine Estimated GFR POC Glucose 93 Random Glucose Calcium Magnesium Triglycerides Cholesterol LDL Cholesterol, Calc HDL Cholesterol Cholesterol/HDL Ratio TSH Free T4 Free T3 Nasal Screen MRSA (PCR) Diagnostic Tests: carotid US--no hemodynamically significant stenosis Review/Management - Review/Management Plan: let hemisphere cva--continue asa. PT. OT. Speech therapy
[2018-03-23] MEDS: Petrolatum 49%/Zinc Oxide 15% Barrier Oint 120 GM Tube TOPICAL SCH (20:23)
[2018-03-24] MEDS: Sod Chloride 0.9% Inj 1,000 ML IV.CONT SCH ×2 (04:14→19:09)
[2018-03-24] MEDS: Chlorhexidine Gluconate 2% 1 Pack (2 Cloths) TOPICAL SCH (04:15)
[2018-03-24] MEDS: Famotidine PF Inj 20 MG/2 ML Vial IV.PUSH SCH ×2 (08:09→20:33)
[2018-03-24] MEDS: Petrolatum 49%/Zinc Oxide 15% Barrier Oint 120 GM Tube TOPICAL SCH (08:14)
[2018-03-24] MEDS: Aspirin 300 MG Supp RECTAL SCH (09:00)
--- NOTE | 2018-03-24 12:19 | P.PNFP ---
Subjective Interval history: She is awake and remains nonverbal without apparent distress. Results - Labs Result diagrams: 03/23/18 03:19 03/22/18 21:53 Physical Exam Vital signs: Vital Signs 03/23/18 13:00 03/23/18 13:03 03/23/18 14:00 Temperature Pulse Rate 70 83 68 Respiratory Rate 16 17 14 Blood Pressure 213/94 H 180/77 H Pulse Oximetry 95 94 L 92 L 03/23/18 15:00 03/23/18 16:00 03/23/18 17:00 Temperature 98.9 F Pulse Rate 69 64 84 Respiratory Rate 25 H 12 21 Blood Pressure 174/74 H 178/70 H 189/74 H Pulse Oximetry 95 94 L 95 03/23/18 18:00 03/23/18 19:00 03/23/18 20:00 Temperature Pulse Rate 72 96 H 82 Respiratory Rate 13 22 34 H Blood Pressure 172/74 H 172/105 H 184/127 H Pulse Oximetry 95 94 L 93 L 03/23/18 20:01 03/23/18 20:41 03/23/18 21:00 Temperature Pulse Rate 88 79 Respiratory Rate 27 H 19 Blood Pressure 197/81 H 178/72 H Pulse Oximetry 93 L 93 L 93 L 03/23/18 22:00 03/23/18 23:00 03/23/18 23:58 Temperature Pulse Rate 86 85 69 Respiratory Rate 19 19 13 Blood Pressure 196/88 H 212/99 H 182/77 H Pulse Oximetry 94 L 93 L 90 L 03/24/18 00:00 03/24/18 01:00 03/24/18 02:00 Temperature 98.6 F Pulse Rate 68 64 105 H Respiratory Rate 22 12 23 Blood Pressure 162/84 H 149/63 H 198/106 H Pulse Oximetry 90 L 92 L 92 L 03/24/18 03:00 03/24/18 04:00 03/24/18 05:00 Temperature 98.2 F Pulse Rate 72 78 66 Respiratory Rate 25 H 28 H 26 H Blood Pressure 201/84 H 175/76 H 205/81 H Pulse Oximetry 88 L 86 L 95 03/24/18 05:09 03/24/18 06:00 03/24/18 06:39 Temperature Pulse Rate 82 72 Respiratory Rate 15 13 Blood Pressure 225/94 H Pulse Oximetry 96 94 L 95 03/24/18 06:41 12/15/18 07:01 03/24/18 08:00 Temperature Pulse Rate 77 65 81 Respiratory Rate 19 13 Blood Pressure 212/95 H 185/79 H Pulse Oximetry 98 95 94 L 03/24/18 08:02 03/24/18 08:43 03/24/18 09:00 Temperature 97.8 F Pulse Rate 74 68 Respiratory Rate 17 13 Blood Pressure 209/88 H 193/78 H Pulse Oximetry 97 96 95 03/24/18 10:00 03/24/18 11:00 Temperature Pulse Rate 81 66 Respiratory Rate 14 28 H Blood Pressure 218/83 H 198/86 H Pulse Oximetry 94 L 94 L Intake & Output 03/23/18 03/24/18 03/24/18 18:59 06:59 18:59 Intake Total 1000 / 1000 1000 / 1000 Output Total 300 / 300 600 / 600 Balance 700 / 700 400 / 400 Weight 73.8 kg Intake: IV 1000 / 1000 1000 / 1000 NS Inj 1,000 ML @ 70 mls/hr IV. 1000 / 1000 1000 / 1000 CONT .[id number] [facility] Rx#:[id number] Oral 0 / 0 Output: Urine Amount (Catheter) 300 / 300 600 / 600 Female External 300 / 300 600 / 600 Other: # Voids 3 # Incontinent Voids 3 Date of Last Bowel Movement 03/23/18 03/24/18 03/23/18 # Bowel Movements 1 1 - Constitutional no acute distress - Routine HEENT Exam Head: Present: normocephalic ENT: Present: mucous membranes moist - Routine Neck Exam Present: supple - Routine Respiratory Exam Present: CTA bilaterally - Routine Cardiovascular Exam Present: RRR - Routine Abdominal Exam Present: soft, normoactive bowel sounds - Routine Extremities Exam Comments: Right hemiparesis - Routine Skin Exam Present: intact - Routine Neurological Exam Present: alert expressive aphasia noted - Detailed Neurological Exam: Coma Scale Eye Opening: To sound Verbal Response: None Motor Response: Localizing Alexandra Coma Scale Total: 9 - Routine Psychiatric Exam Present: unable to assess - Urinary Catheter Management Straight Cath placed during this visit: yes, but has since been removed by the nurse Reason for continuing: Decision to DC catheter Insertion date: 03/22/18 Insertion time: 07:10 Removal date: 03/22/18 Removal time: 07:11 Female External Cath placed during this visit: no Assessment and Plan - Assessment (1) Acute ischemic stroke Code(s): I63.9 - Cerebral infarction, unspecified Status: Acute Plan: F/U Neuro W/U and recommendations (2) Right hemiparesis Code(s): G81.91 - Hemiplegia, unspecified affecting right dominant side Status : Acute Plan: Refer to therapy assessment and recommendations (3) Parkinson disease Code(s): G20 - Parkinson's disease Status: Chronic Plan: Tx per Neuro (4) Hypertension Code(s): I10 - Essential (primary) hypertension Status: Chronic Plan: Tolerating HTN presently S/P CVA - Assessment and Plan admission neurological consult anticoagulate when stable control htn 03/23/18- Seen this am daughter at bedside. She voices they are still wanting aggressive care at this time. Patient has been seen by ST and it is recommended she remans NPO. Discussed peg placement, family wishes to proceed with feeding tube. Referral made. VSS afebrile. Neurology following. 03/24/18 - Apparently GI was not able to get in contact with daughter last night to get permission for PEG. Will cont to support and PEG when permit signed. Will need transfer back to SNF when Neuro W/U complete and PEG placed. Discussed Condition With: photograph enlarger Planning: SNF (4) Hypertension Qualifiers: Hypertension type: essential hypertension Qualified Code(s): I10 - Essential (primary) hypertension
--- NOTE | 2018-03-24 12:27 | P.PNGI ---
Subjective Interval history: Patient awake and alert laying supine in bed Nonverbal <ClydeKyung - Last Filed: 03/24/18 12:23> Physical Exam Vital signs: Vital Signs 03/23/18 13:00 03/23/18 13:03 03/23/18 14:00 Temperature Pulse Rate 70 83 68 Respiratory Rate 16 17 14 Blood Pressure 213/94 H 180/77 H Pulse Oximetry 95 94 L 92 L 03/23/18 15:00 03/23/18 16:00 03/23/18 17:00 Temperature 98.9 F Pulse Rate 69 64 84 Respiratory Rate 25 H 12 21 Blood Pressure 174/74 H 178/70 H 189/74 H Pulse Oximetry 95 94 L 95 03/23/18 18:00 03/23/18 19:00 03/23/18 20:00 Temperature Pulse Rate 72 96 H 82 Respiratory Rate 13 22 34 H Blood Pressure 172/74 H 172/105 H 184/127 H Pulse Oximetry 95 94 L 93 L 03/23/18 20:01 03/23/18 20:41 03/23/18 21:00 Temperature Pulse Rate 88 79 Respiratory Rate 27 H 19 Blood Pressure 197/81 H 178/72 H Pulse Oximetry 93 L 93 L 93 L 03/23/18 22:00 03/23/18 23:00 03/23/18 23:58 Temperature Pulse Rate 86 85 69 Respiratory Rate 19 19 13 Blood Pressure 196/88 H 212/99 H 182/77 H Pulse Oximetry 94 L 93 L 90 L 03/24/18 00:00 03/24/18 01:00 03/24/18 02:00 Temperature 98.6 F Pulse Rate 68 64 105 H Respiratory Rate 22 12 23 Blood Pressure 162/84 H 149/63 H 198/106 H Pulse Oximetry 90 L 92 L 92 L 03/24/18 03:00 03/24/18 04:00 03/24/18 05:00 Temperature 98.2 F Pulse Rate 72 78 66 Respiratory Rate 25 H 28 H 26 H Blood Pressure 201/84 H 175/76 H 205/81 H Pulse Oximetry 88 L 86 L 95 03/24/18 05:09 03/24/18 06:00 03/24/18 06:39 Temperature Pulse Rate 82 72 Respiratory Rate 15 13 Blood Pressure 225/94 H Pulse Oximetry 96 94 L 95 03/24/18 06:41 03/24/18 07:01 03/24/18 08:00 Temperature Pulse Rate 77 65 81 Respiratory Rate 19 13 Blood Pressure 212/95 H 185/79 H Pulse Oximetry 98 95 94 L 03/24/18 08:02 03/24/18 08:43 03/24/18 09:00 Temperature 97.8 F Pulse Rate 74 68 Respiratory Rate 17 13 Blood Pressure 209/88 H 193/78 H Pulse Oximetry 97 96 95 03/24/18 10:00 03/24/18 11:00 Temperature Pulse Rate 81 66 Respiratory Rate 14 28 H Blood Pressure 218/83 H 198/86 H Pulse Oximetry 94 L 94 L Intake & Output 03/23/18 03/24/18 03/24/18 18:59 06:59 18:59 Intake Total 1000 / 1000 1000 / 1000 Output Total 300 / 300 600 / 600 Balance 700 / 700 400 / 400 Weight 73.8 kg Intake: IV 1000 / 1000 1000 / 1000 NS Inj 1,000 ML @ 70 mls/hr IV. 1000 / 1000 1000 / 1000 CONT .[id number] [facility] Rx#:[id number] Oral 0 / 0 Output: Urine Amount (Catheter) 300 / 300 600 / 600 Female External 300 / 300 600 / 600 Other: # Voids 3 # Incontinent Voids 3 Date of Last Bowel Movement 03/23/18 03/24/18 03/23/18 # Bowel Movements 1 1 - Constitutional no acute distress, chronically ill appearing - Routine Respiratory Exam Present: CTA bilaterally. Absent: accessory muscle use - Routine Abdominal Exam Present: soft, normoactive bowel sounds. Absent: tenderness, distended, firm - Routine Skin Exam Present: dry, warm - Routine Neurological Exam Present: alert Aphasic Unable to follow commands - Urinary Catheter Management Straight Cath placed during this visit: yes, but has since been removed by the nurse Reason for continuing: Decision to DC catheter Insertion date: 03/22/18 Insertion time: 07:10 Removal date: 03/22/18 Removal time: 07:11 Female External Cath placed during this visit: no <Kyung Tang - Last Filed: 03/24/18 12:23> Vital signs: Vital Signs 03/23/18 18:00 03/23/18 19:00 03/23/18 20:00 Temperature Pulse Rate 72 96 H 82 Respiratory Rate 13 22 34 H Blood Pressure 172/74 H 172/105 H 184/127 H Pulse Oximetry 95 94 L 93 L 03/23/18 20:01 03/23/18 20:41 03/23/18 21:00 Temperature Pulse Rate 88 79 Respiratory Rate 27 H 19 Blood Pressure 197/81 H 178/72 H Pulse Oximetry 93 L 93 L 93 L 03/23/18 22:00 03/23/18 23:00 03/23/18 23:58 Temperature Pulse Rate 86 85 69 Respiratory Rate 19 19 13 Blood Pressure 196/88 H 212/99 H 182/77 H Pulse Oximetry 94 L 93 L 90 L 03/24/18 00:00 03/24/18 01:00 03/24/18 02:00 Temperature 98.6 F Pulse Rate 68 64 105 H Respiratory Rate 22 12 23 Blood Pressure 162/84 H 149/63 H 198/106 H Pulse Oximetry 90 L 92 L 92 L 03/24/18 03:00 03/24/18 04:00 03/24/18 05:00 Temperature 98.2 F Pulse Rate 72 78 66 Respiratory Rate 25 H 28 H 26 H Blood Pressure 201/84 H 175/76 H 205/81 H Pulse Oximetry 88 L 86 L 95 03/24/18 05:09 03/24/18 06:00 03/24/18 06:39 Temperature Pulse Rate 82 72 Respiratory Rate 15 13 Blood Pressure 225/94 H Pulse Oximetry 96 94 L 95 03/24/18 06:41 03/24/18 07:01 03/24/18 08:00 Temperature Pulse Rate 77 65 81 Respiratory Rate 19 13 Blood Pressure 212/95 H 185/79 H Pulse Oximetry 98 95 94 L 03/24/18 08:02 03/24/18 08:43 03/24/18 09:00 Temperature 97.8 F Pulse Rate 74 68 Respiratory Rate 17 13 Blood Pressure 209/88 H 193/78 H Pulse Oximetry 97 96 95 03/24/18 10:00 03/24/18 11:00 03/24/18 12:00 Temperature 98.1 F Pulse Rate 81 66 93 H Respiratory Rate 14 28 H 37 H Blood Pressure 218/83 H 198/86 H 226/94 H Pulse Oximetry 94 L 94 L 97 03/24/18 13:00 03/24/18 14:00 03/24/18 15:00 Temperature Pulse Rate 83 92 H 77 Respiratory Rate 33 H 24 24 Blood Pressure 199/80 H 220/98 H 197/81 H Pulse Oximetry 94 L 98 96 03/24/18 16:00 Temperature 98.0 F Pulse Rate 70 Respiratory Rate 24 Blood Pressure 219/88 H Pulse Oximetry 97 Intake & Output 03/23/18 03/24/18 03/24/18 18:59 06:59 18:59 Intake Total 1000 / 1000 1000 / 1000 Output Total 300 / 300 600 / 600 Balance 700 / 700 400 / 400 Weight 73.8 kg Intake: IV 1000 / 1000 1000 / 1000 NS Inj 1,000 ML @ 70 mls/hr IV. 1000 / 1000 1000 / 1000 CONT .[id number] [facility] Rx#:[id number] Oral 0 / 0 Output: Urine Amount (Catheter) 300 / 300 600 / 600 Female External 300 / 300 600 / 600 Other: # Voids 3 # Incontinent Voids 3 Date of Last Bowel Movement 03/23/18 03/24/18 03/23/18 # Bowel Movements 1 1 - Urinary Catheter Management Straight Cath placed during this visit: no Female External Cath placed during this visit: no <Kurtis Handy - Last Filed: 03/24/18 17:18> Results - Labs CBC & Chem 7: 03/23/18 03:19 03/22/18 21:53 Laboratory Results - last 24 hr 03/23/18 16:41 POC Glucose 93 <Kyung Tang - Last Filed: 03/24/18 12:23> - Labs CBC & Chem 7: 03/23/18 03:19 03/22/18 21:53 <Kurtis Handy - Last Filed: 03/24/18 17:18> Assessment and Plan (1) Dysphasia Status: Acute Code(s): R47.02 - Dysphasia - Plan Patient is an 87-year-old female with past medical history significant for dementia, Parkinson's disease, hypertension and hypothyroidism. Surgical history significant for bladder surgery. Patient presented to the emergency room at [facility] as a stroke alert. CT of the head showed left temporoparietal hypodensity indicating ischemic infarct. Upon consult, patient noted to be awake and alert, pleasant and cooperative. Patient is also aphasic. As per speech therapy, patient at high risk for aspiration, recommendation to maintain n.p.o. Our service has been consulted to evaluate patient for PEG tube placement. Dysphasia PEG tube placement 87-year-old female past medical history significant for dementia. Recent CVA/ischemic infarct with residual aphasia As per speech therapy, patient at high risk for aspiration 03/24/2018 Dr. Handy spoke with patient's daughter Stephanie regarding plan for PEG tube placement. At this time PEG tube placement will be on hold. Daughter states she will speak with family members. She states concern regarding long-term prognosis coupled with decreasing mentation. States she will notify medical team when decision is reached. Plan -N.p.o. -Aspiration precautions -Supportive care -Further recommendations to follow -GI will sign off at this time, please notify when decision is reached or if there are any further needs. This patient has been seen by myself and Dr. Handy and this note is written on his behalf - Attending Attestation Dr. Handy <Kyung Tang - Last Filed: 03/24/18 12:23> (1) Dysphasia Status: Acute Code(s): R47.02 - Dysphasia - Attending Attestation Spoke with daughter. Patient seen and examined. Daughter will consider whether or not to proceed with PEG tube. Please call if PEG tube requested and consented. <Kurtis Handy - Last Filed: 03/24/18 17:18>
--- NOTE | 2018-03-24 15:33 | P.CONPSY ---
Provisional Diagnosis Admission Date: March 22, 2018 08:33 History of Present Illness Service: Psychiatry Primary Care Provider: Donavon Monsalve DO Chief Complaint: Acute right-sided weakness and aphasia History of Present Illness: This is a request for a psychiatric consult. Documentation was reviewed, case was discussed with nursing and patient was evaluated. Patient is an 87-year- old female with a long history of schizophrenia and 5-10-year history of dementia. Patient is somnolent during the interview and questioning was conducted with her family including her daughter. Daughter is concerned that Latuda may have caused her stroke and is asking for other antipsychotics. Psychoeducation was done that any antipsychotic could increase the likelihood of stroke. After supportive therapy was conducted family decided that they would wait to see patient status after recovery and decide if they want to continue on any antipsychotic therapy. Before the stroke patient was delusional but his baseline frequently talking to herself. Past psych: 50-year history of schizophrenia and medication per family. Multiple inpatient admissions. No suicide attempts Past medical: See chart, recent stroke Past Famhx: Denies Past Social: No history of substance use. Patient has a daughter. Patient is somnolent and cannot provide a more extensive history Review of Systems All other systems reviewed negative except as stated in HPI PMFSH - History History Provided By: Family Member - Medical History Medical History: Medical History (Last Reviewed 03/24/18 @ 15:32 by Oleg Mccord DO) Dementia GERD (gastroesophageal reflux disease) HBP (high blood pressure) Hypothyroidism Parkinson disease Schizophrenia - Surgical History Surgical History: Surgical History (Last Reviewed 03/23/18 @ 09:28 by Praveen Soria) History of bladder surgery - Tobacco History Second Hand Smoke Exposure: No Tobacco Use In Past 30 Days: No Smoking Status: Never smoker - Alcohol History How Often Do You Have a Drink Containing Alcohol: Never - Substance Use History Substance History: No History of Abuse - Travel History Recent Travel in the [place] Within the Last 8 Weeks: No Recent Travel Out of the Country Within the Last 8 Weeks: No - Immunization History Tetanus Immunization: >5 Years Medications and Allergies Active Medications: Active Medications Albuterol (Duoneb Neb (Prn)) 1 ampul NEB Q2HR NEB PRN PRN Reason: WHEEZING Aspirin (Aspirin Supp) 300 mg RECTAL DAILY [facility] Last Admin: 03/24/18 09:00 Dose: Not Given Bisacodyl (Dulcolax Supp) 10 mg RECTAL DAILY PRN PRN Reason: SEVERE CONSITIPATION Chlorhexidine Gluconate (Chlorhexidine 2% Cloth) 3 pack TOPICAL DAILY@0400 [facility] Stop: 03/28/18 03:59 Last Admin: 03/24/18 04:15 Dose: 3 pack Chlorhexidine Gluconate (Chlorhexidine 2% Cloth) 3 pack TOPICAL DAILY@0400 PRN PRN Reason: Extra cloth needed Stop: 03/28/18 03:59 Famotidine (Pepcid Pf Inj) 20 mg IV.PUSH Q12HR [facility] Last Admin: 03/24/18 08:09 Dose: 20 mg Sodium Chloride (Ns Inj) 1,000 mls @ 70 mls/hr IV.CONT .[id number] [facility] Last Admin: 03/24/18 04:14 Dose: 70 mls/hr Cefazolin Sodium/Dextrose (Ancef 1 Gm Premix Inj) 1 gm in 50 mls @ 100 mls/hr IV.SIG TRANSFER TABLE OPERATOR [facility] Petrolatum/Zinc Oxide (Sensi-Care Protective Barrier Oint) 1 applicatio TOPICAL DAILY [facility] Last Admin: 03/24/18 08:14 Dose: 1 applicatio Sodium Chloride (Ns Flush) 2 ml IV.FLUSH BID [facility] Last Admin: 03/24/18 08:09 Dose: 2 ml Sodium Chloride (Ns Flush) 2 ml IV.FLUSH PRN PRN PRN Reason: FLUSH AFTER USING IV ACCESS Allergies Allergy/AdvReac Type Severity Reaction Status Date / Time No Known Allergies Allergy Verified 03/22/18 06:59 Home Medications Medication Instructions Recorded Confirmed Type amlodipine [Norvasc] 2.5 mg PO DAILY 03/22/18 03/22/18 History benztropine 0.5 mg PO BID 03/22/18 03/22/18 History donepezil 10 mg PO DAILY 03/22/18 03/22/18 History furosemide [Lasix] 40 mg PO DAILY 03/22/18 03/22/18 History lurasidone [Latuda] 120 mg PO DAILY 03/22/18 03/22/18 History melatonin 3 mg PO HS 03/22/18 03/22/18 History memantine [Namenda XR] 14 mg PO DAILY 03/22/18 03/22/18 History omeprazole 20 mg PO DAILY 03/22/18 03/22/18 History potassium chloride [Klor-Con 10] 10 meq PO DAILY 03/22/18 03/22/18 History Exam Vital signs: Vital Signs 03/23/18 16:00 03/23/18 17:00 03/23/18 18:00 Temperature 98.9 F Pulse Rate 64 84 72 Respiratory Rate 12 21 13 Blood Pressure 178/70 H 189/74 H 172/74 H Pulse Oximetry 94 L 95 95 03/23/18 19:00 03/23/18 20:00 03/23/18 20:01 Temperature Pulse Rate 96 H 82 88 Respiratory Rate 22 34 H 27 H Blood Pressure 172/105 H 184/127 H 197/81 H Pulse Oximetry 94 L 93 L 93 L 03/23/18 20:41 03/23/18 21:00 03/23/18 22:00 Temperature Pulse Rate 79 86 Respiratory Rate 19 19 Blood Pressure 178/72 H 196/88 H Pulse Oximetry 93 L 93 L 94 L 03/23/18 23:00 03/23/18 23:58 03/24/18 00:00 Temperature 98.6 F Pulse Rate 85 69 68 Respiratory Rate 19 13 22 Blood Pressure 212/99 H 182/77 H 162/84 H Pulse Oximetry 93 L 90 L 90 L 03/24/18 01:00 03/24/18 02:00 03/24/18 03:00 Temperature Pulse Rate 64 105 H 72 Respiratory Rate 12 23 25 H Blood Pressure 149/63 H 198/106 H 201/84 H Pulse Oximetry 92 L 92 L 88 L 03/24/18 04:00 03/24/18 05:00 03/24/18 05:09 Temperature 98.2 F Pulse Rate 78 66 Respiratory Rate 28 H 26 H Blood Pressure 175/76 H 205/81 H Pulse Oximetry 86 L 95 96 03/24/18 06:00 03/24/18 06:39 03/24/18 06:41 Temperature Pulse Rate 82 72 77 Respiratory Rate 15 13 19 Blood Pressure 225/94 H 212/95 H Pulse Oximetry 94 L 95 98 03/24/18 07:01 03/24/18 08:00 03/24/18 08:02 Temperature 97.8 F Pulse Rate 65 81 74 Respiratory Rate 13 17 Blood Pressure 185/79 H 209/88 H Pulse Oximetry 95 94 L 97 03/24/18 08:43 03/24/18 09:00 03/24/18 10:00 Temperature Pulse Rate 68 81 Respiratory Rate 13 14 Blood Pressure 193/78 H 218/83 H Pulse Oximetry 96 95 94 L 03/24/18 11:00 03/24/18 12:00 03/24/18 13:00 Temperature 98.1 F Pulse Rate 66 93 H 83 Respiratory Rate 28 H 37 H 33 H Blood Pressure 198/86 H 226/94 H 199/80 H Pulse Oximetry 94 L 97 94 L 03/24/18 14:00 Temperature Pulse Rate 92 H Respiratory Rate 24 Blood Pressure 220/98 H Pulse Oximetry 98 Intake & Output 03/23/18 03/24/18 03/24/18 18:59 06:59 18:59 Intake Total 1000 / 1000 1000 / 1000 Output Total 300 / 300 600 / 600 Balance 700 / 700 400 / 400 Weight 73.8 kg Intake: IV 1000 / 1000 1000 / 1000 NS Inj 1,000 ML @ 70 mls/hr IV. 1000 / 1000 1000 / 1000 CONT .[id number] [facility] Rx#:[id number] Oral 0 / 0 Output: Urine Amount (Catheter) 300 / 300 600 / 600 Female External 300 / 300 600 / 600 Other: # Voids 3 # Incontinent Voids 3 Date of Last Bowel Movement 03/23/18 03/24/18 03/23/18 # Bowel Movements 1 1 Mental Status Examination Appearance: Disheveled Consciousness: Obtunded Orientation: Person Motor Activity: Abnormal gait Speech: Speech impediment Language: Other (na) Fund of Knowledge: Inadequate Attention and Concentration: Inadequate Memory: Impaired Mood: Other (na) Affect: Flat (na) Thought Process & Associations: Other (na) Thought Content: Other (na) Hallucination Type: Other (na) Delusion Type: Other (na) Suicidal Ideation: No Suicidal Plan: No Suicidal Intention: No Homicidal Ideation: No Homicidal Plan: No Homicidal Intention: No Insight: Poor Judgment: Poor Assessment and Plan - Assessment (1) Schizophrenia Code(s): F20.9 - Schizophrenia, unspecified Status: Chronic - Plan Plan: Psychoeducation was done with family as noted in the HPI. Risk versus benefits of antipsychotics will be determined by family after patient recovers from her stroke Justification for Continued Inpatient Stay: Patient would decompensate in a less restrictive setting
[2018-03-25] MEDS: Chlorhexidine Gluconate 2% 1 Pack (2 Cloths) TOPICAL SCH (06:24)
[2018-03-25] MEDS: Sod Chloride 0.9% Inj 1,000 ML IV.CONT SCH ×2 (07:49→20:53)
--- NOTE | 2018-03-25 09:45 | P.DIET ---
Nutritional Evaluation Type of nutrition evaluation: follow-up Nutrition consult regarding: Tube Feeding Nutrition screening: [facility] ([facility] 03/23) Screening comments: NPO ALERTPT NPO X 3-DAYS Objective - Diagnosis L MCA, ischemic stroke - Objective % IBW: 134 (IBW = 120#) Body Weight Used for Calculations: IBW (54.5 kg) Energy Needs - Lower Range (kCal/kg): 25 Energy Needs - Upper Range (kCal/kg): 30 Lower Limit kCal/kg (kCals): 1,364 Upper Limit kCal/kg (kCals): 1,635 Lower Limit Protein Factor (Grams per Kg): 1.0 Upper Limit Protein Factor (Grams per Kg): 1.5 Lower Protein Needs (Protein): 55 Upper Protein Needs (Protein): 82 Dietitian Reviewed in Medical Record: Curent medications, Intake & Output, Labs , Medical history, Tube feeding Diet Order: NPO Speech Therapy Recommendations: Yes (NPO) Assessment Assessment: Pt continues at high nutrition risk w/ST Rec for pt to be NPO. Pt NPO x 3- days. Per GI note, 03/24/18, pt family deciding whether feeding tube will be placed. For TF'ing, to meet needs, Rec Jevity 1.5 @ goal rate 45 mls/hr to provide 1620 kcals, 69 gms protein and 821 mls of free water. Pt will need an additional 200 ml water flush q 6 hrs to meet fluid needs. Recommendations: 1. NPO ALERT w/Pt NPO x 3-days 2. Per GI note, 03/24/18, pt family deciding whether feeding tube will be placed 3. For TF'ing, to meet needs, Rec Jevity 1.5 @ goal rate 45 mls/hr 4. Rec 200 ml water flush q 6 hrs to meet fluid needs Dietitian to Monitor: Lab values, Intake & Output, Tube feeding tolerance, Weight change, Swallow recommendations, Medical course
[2018-03-25] MEDS: Aspirin 300 MG Supp RECTAL SCH (09:49)
[2018-03-25] MEDS: Famotidine PF Inj 20 MG/2 ML Vial IV.PUSH SCH ×2 (09:49→20:52)
[2018-03-25] MEDS: Petrolatum 49%/Zinc Oxide 15% Barrier Oint 120 GM Tube TOPICAL SCH (09:50)
--- NOTE | 2018-03-25 10:46 | P.PNFP ---
Subjective Interval history: She is alert and trying to speak but remains non-verbal, but appears comfortable and unaware of her surroundings. Results - Labs Result diagrams: 03/23/18 03:19 03/22/18 21:53 Physical Exam Vital signs: Vital Signs 03/24/18 11:00 03/24/18 12:00 03/24/18 13:00 Temperature 98.1 F Pulse Rate 66 93 H 83 Respiratory Rate 28 H 37 H 33 H Blood Pressure 198/86 H 226/94 H 199/80 H Pulse Oximetry 94 L 97 94 L 03/24/18 14:00 03/24/18 15:00 03/24/18 16:00 Temperature 98.0 F Pulse Rate 92 H 77 70 Respiratory Rate 24 24 24 Blood Pressure 220/98 H 197/81 H 219/88 H Pulse Oximetry 98 96 97 03/24/18 17:00 03/24/18 18:00 03/24/18 18:05 Temperature Pulse Rate 81 84 88 Respiratory Rate 29 H 33 H Blood Pressure 191/81 H 193/78 H Pulse Oximetry 97 96 03/24/18 19:00 03/24/18 20:00 03/24/18 21:00 Temperature 97.6 F Pulse Rate 80 76 74 Respiratory Rate 20 24 26 H Blood Pressure 171/125 H 212/87 H 194/90 H Pulse Oximetry 95 95 95 03/24/18 22:00 03/24/18 23:00 03/25/18 00:00 Temperature 98.4 F Pulse Rate 85 85 87 Respiratory Rate 20 20 20 Blood Pressure 223/100 H 169/69 H 209/86 H Pulse Oximetry 96 97 95 03/25/18 00:46 03/25/18 01:00 03/25/18 02:00 Temperature Pulse Rate 80 76 Respiratory Rate 20 20 Blood Pressure 204/86 H 202/81 H Pulse Oximetry 95 96 96 03/25/18 03:00 03/25/18 04:00 03/25/18 05:00 Temperature 97.6 F Pulse Rate 62 63 67 Respiratory Rate 20 20 20 Blood Pressure 185/87 H 152/67 H 213/88 H Pulse Oximetry 92 L 92 L 93 L 03/25/18 06:00 03/25/18 07:42 Temperature Pulse Rate 89 Respiratory Rate 20 Blood Pressure 197/86 H Pulse Oximetry 96 95 Intake & Output 1203/25/18 03/25/18 18:59 06:59 18:59 Intake Total 1000 / 1000 840 / 840 1000 / 1000 Output Total 100 / 100 500 / 500 Balance 900 / 900 340 / 340 1000 / 1000 Weight 73.3 kg Intake: IV 1000 / 1000 1000 / 1000 NS Inj 1,000 ML @ 70 mls/hr IV. 1000 / 1000 1000 / 1000 CONT .[id number] [facility] Rx#:[id number] Oral 0 / 0 Other 840 / 840 Output: Urine Amount (Catheter) 100 / 100 500 / 500 Female External 100 / 100 500 / 500 Other: # Incontinent Voids 3 3 Date of Last Bowel Movement 03/23/18 03/23/18 # Bowel Movements 1 - Constitutional no acute distress - Routine HEENT Exam Head: Present: normocephalic Eye: Present: PERRL, normal accommodation ENT: Present: mucous membranes moist - Routine Neck Exam Present: supple, full ROM - Routine Respiratory Exam Present: CTA bilaterally - Routine Cardiovascular Exam Present: RRR - Routine Abdominal Exam Present: soft - Routine Extremities Exam Present: normal capillary refill - Routine Skin Exam Present: intact - Routine Neurological Exam Present: alert aphasic - Detailed Neurological Exam: Coma Scale Eye Opening: To sound - Routine Psychiatric Exam Present: unable to assess - Urinary Catheter Management Straight Cath placed during this visit: yes, but has since been removed by the nurse Reason for continuing: Decision to DC catheter Insertion date: 03/22/18 Insertion time: 07:10 Removal date: 03/22/18 Removal time: 07:11 Female External Cath placed during this visit: no Assessment and Plan - Assessment (1) Acute ischemic stroke Code(s): I63.9 - Cerebral infarction, unspecified Status: Acute Plan: F/U Neuro W/U and recommendations. No change except appears more alert. Still aphasic and not eating due to risk of aspiration. (2) Right hemiparesis Code(s): G81.91 - Hemiplegia, unspecified affecting right dominant side Status : Acute Plan: Refer to therapy assessment and recommendations (3) Parkinson disease Code(s): G20 - Parkinson's disease Status: Chronic Plan: Tx per Neuro (4) Hypertension Code(s): I10 - Essential (primary) hypertension Status: Chronic Plan: Tolerating HTN presently S/P CVA - Assessment and Plan admission neurological consult anticoagulate when stable control htn 03/23/18- Seen this am daughter at bedside. She voices they are still wanting aggressive care at this time. Patient has been seen by ST and it is recommended she remans NPO. Discussed peg placement, family wishes to proceed with feeding tube. Referral made. VSS afebrile. Neurology following. 03/24/18 - Apparently GI was not able to get in contact with daughter last night to get permission for PEG. Will cont to support and PEG when permit signed. Will need transfer back to SNF when Neuro W/U complete and PEG placed. 03/24/18 - She had tachycardia yesterday and Cards saw this AM. No recurrence and no new orders. Psych eval done and history of schizophrenia reviewed. Holding Psych meds at this time. GI has signed off as daughter refused to sign for PEG. Hospice saw her but her daughter is undecided at this time. Discussed with CM and if she is going on Hospice with comfort care, we can D/C back to SNF ; but again the daughter is undecided. Will cont to support and await daughter' s decision about care and placement. Discharge Planning: SNF (4) Hypertension Qualifiers: Hypertension type: essential hypertension Qualified Code(s): I10 - Essential (primary) hypertension
--- NOTE | 2018-03-25 12:48 | MB ---
cc: Patricio Trejo MD DATE: 03/25/2018 REASON FOR CONSULTATION: Report of runs of ventricular tachycardia. HISTORY OF PRESENT ILLNESS: The patient is an 87-year-old woman who is currently being seen by palliative care, who has a history of dementia, Parkinson's, hypertension, who presented as a stroke alert. She has been worked up by neurology and on telemetry. Apparently, there was some concern for arrhythmia/VT yesterday, so I was consulted. I reviewed telemetry and it clearly shows sinus rhythm with other leads showing artifact, but clearly sinus rhythm is present in the best appearing lead. No ventricular dysrhythmia is seen except perhaps 1 ventricular couplet. Certainly, no significant ventricular tachycardia. Unfortunately, the patient is aphasic and unable to provide any history. All history is obtained from the chart. PAST MEDICAL HISTORY: Hypertension, Parkinson's, dementia, hypothyroidism. CURRENT MEDICATIONS: 1. Aspirin. 2. Ancef. 3. Pepcid. ALLERGIES: NO KNOWN DRUG ALLERGIES. PHYSICAL EXAMINATION: VITAL SIGNS: Afebrile, pulse 89, respiratory rate 20, BP 197/86, saturating 95 on room air. GENERAL: Elderly patient who is not able to participate in any conversation with me. NECK: No JVD. LUNGS: Clear to auscultation bilaterally. CARDIOVASCULAR: Regular rate and rhythm. No significant murmurs appreciated. ABDOMEN: Benign. EXTREMITIES: No edema. LABORATORY DATA: White count 10.9, hematocrit 39.3, platelets 214. INR is 1.0. Sodium 143, potassium 3.8, chloride 111, bicarbonate 25.3, BUN 12, creatinine 0.83, glucose 121. EKG shows sinus rhythm with first-degree AV block and minimal ST depressions. Echocardiogram shows a normal ejection fraction of 60% to 65%. Telemetry shows sinus rhythm, occasionally with 1 or 2 of the 3 leads showing what appears to be either tremor artifact or another electrical-type artifact, but during these times, there is clear sinus rhythm in alternate leads with no significant ventricular dysrhythmia seen. CONCLUSIONS: Question of arrhythmia. I reviewed the patient's telemetry and see no ventricular tachycardia. The patient has significant cognitive disability and is unable to provide any history to me at this time. I see that palliative care has been consulted. At this time, I have no further recommendations. Please call with any questions. I will sign off at this time. Thank you again for the opportunity to participate in this patient's care. MD BRIELLE Elliott/jefferson , 10:06 AM , 10:13 AM
[2018-03-26] MEDS: Chlorhexidine Gluconate 2% 1 Pack (2 Cloths) TOPICAL SCH (03:45)
[2018-03-26 07:18] LABS: Baso # (Auto) 0.1 th/mm3 (0.0-0.2); Baso % (Auto) 1.2 % (0.0-2.0); Eos # (Auto) 0.3 th/mm3 (0.0-0.4); Eos % (Auto) 4.5 % (0.0-4.0); Hematocrit 38.7 % (35.0-46.0); Hemoglobin 13.3 gm/dL (11.6-15.3); Lymph # (Auto) 1.4 th/mm3 (1.0-4.8); Lymph % (Auto) 20.5 % (9.0-44.0); Mean Corpuscular HGB Conc 34.3 % (32.0-36.0); Mean Corpuscular Hemoglobin 30.3 pg (27.0-34.0); Mean Corpuscular Volume 88.5 fL (80.0-100.0); Mean Platelet Volume 8.7 fL (7.0-11.0); Mono # (Auto) 0.8 th/mm3 (0.0-0.9); Mono % (Auto) 11.8 % (0.0-8.0); Neut # (Auto) 4.4 th/mm3 (1.8-7.7); Platelet Count 211 th/mm3 (150-450); Red Blood Count 4.37 mil/mm3 (4.00-5.30); Red Cell Distribution Width 13.2 % (11.6-17.2)
[2018-03-26 08:00] LABS: Anion Gap 11 meq/L (5-15); Aspartate Aminotransferase 29 U/L (15-37); Blood Urea Nitrogen 15 mg/dL (7-18); Calcium 8.5 mg/dL (8.5-10.1); Carbon Dioxide 21.2 meq/L (21.0-32.0); Chloride 108 meq/L (98-107); Glomerular Filtration Rate 82 mL/min (>89); Glucose,Random 71 mg/dL (74-106); Potassium 3.4 meq/L (3.5-5.1); Sodium 140 meq/L (136-145)
[2018-03-26 08:02] LABS: Alanine Aminotransferase 24 U/L (10-53)
[2018-03-26 08:04] LABS: Alkaline Phosphatase 94 U/L (45-117)
[2018-03-26] MEDS ORDERED: Magnesium Sulfate Inj 2 GM in Sodium Chlor 0.9% Inj 96 ML IV.SIG PRN (10:02)
[2018-03-26] MEDS ORDERED: Potassium Phosphate Inj 30 MMOL in Sodium Chlor 0.9% Inj 250 ML IV.SIG PRN (10:02)
[2018-03-26] MEDS ORDERED: Magnesium Oxide 400 MG Tablet PO PRN (10:02)
[2018-03-26] MEDS ORDERED: Sodium Phosphate Inj 30 MMOL in Sodium Chlor 0.9% Inj 250 ML IV.SIG PRN (10:02)
[2018-03-26] MEDS ORDERED: Magnesium Sulfate Inj 4 GM in Sodium Chlor 0.9% Inj 92 ML IV.SIG PRN (10:02)
[2018-03-26] MEDS ORDERED: Potassium Chlor 40 mEq Premix 40 MEQ/100 ML PIGGYBACK IV.SIG PRN ×2 (10:02)
[2018-03-26] MEDS ORDERED: Potassium Chloride 25 MEQ Effervescent Tablet PO PRN (10:02)
[2018-03-26] MEDS ORDERED: Potassium Chlor 20 mEq Premix 20 MEQ/100 ML PIGGYBACK IV.SIG PRN ×2 (10:02)
[2018-03-26] MEDS ORDERED: Potassium Phosphate 500 MG Soluble Tablet PO PRN ×2 (10:02)
[2018-03-26] MEDS: Famotidine PF Inj 20 MG/2 ML Vial IV.PUSH SCH ×2 (10:08→20:52)
[2018-03-26] MEDS: Petrolatum 49%/Zinc Oxide 15% Barrier Oint 120 GM Tube TOPICAL SCH (10:09)
[2018-03-26] MEDS: Aspirin 300 MG Supp RECTAL SCH (10:09)
[2018-03-26] MEDS: Dextrose 5% in Water Inj 1,000 ML IV.CONT SCH ×2 (11:17→21:49)
[2018-03-26] MEDS ORDERED: hydrALAZINE 25 MG Tablet PO PRN (12:13)
--- NOTE | 2018-03-26 12:35 | P.PNFP ---
Subjective Interval history: Delayed entry, seen earlier this am She appears comfortable She is alert, not verbal Results - Labs Result diagrams: 03/26/18 06:35 03/26/18 06:35 Abnormal lab results 03/26/18 03/26/18 Range/Units 06:35 06:35 [place] % (Auto) 11.8 H (0.0-8.0) % Eos % (Auto) 4.5 H (0.0-4.0) % Potassium 3.4 L (3.5-5.1) meq/L Chloride 108 H (98-107) meq/L Estimated GFR 82 L (>89) mL/min Random Glucose 71 L (74-106) mg/dL Albumin 3.0 L (3.4-5.0) g/dL Short CBC 03/26/18 Range/Units 06:35 WBC 7.0 (4.0-11.0) th/mm3 Hgb 13.3 (11.6-15.3) gm/dL Hct 38.7 (35.0-46.0) % Plt Count 211 (150-450) th/mm3 BMP 03/26/18 06:35 Sodium 140 Potassium 3.4 L Chloride 108 H Carbon Dioxide 21.2 BUN 15 Creatinine 0.68 Calcium 8.5 Liver Function 03/26/18 Range/Units 06:35 Total Bilirubin 0.6 (0.2-1.0) mg/dL AST 29 (15-37) U/L ALT 24 (10-53) U/L Alkaline Phosphatase 94 (45-117) U/L Albumin 3.0 L (3.4-5.0) g/dL Physical Exam Vital signs: Vital Signs 03/25/18 13:00 03/25/18 14:00 03/25/18 15:00 Temperature Pulse Rate 59 L 64 73 Respiratory Rate 12 11 L 20 Blood Pressure 155/70 H 172/74 H 147/65 H Pulse Oximetry 94 L 93 L 93 L 03/25/18 16:00 03/25/18 17:00 03/25/18 18:00 Temperature Pulse Rate 82 75 80 Respiratory Rate 16 11 L 12 Blood Pressure 160/70 H 151/67 H 156/67 H Pulse Oximetry 94 L 91 L 92 L 03/25/18 19:00 03/25/18 20:00 03/25/18 21:00 Temperature 98.6 F Pulse Rate 79 70 74 Respiratory Rate 20 20 17 Blood Pressure 165/78 H 178/73 H Pulse Oximetry 95 94 L 97 03/25/18 22:00 03/25/18 23:00 03/26/18 00:00 Temperature 98.2 F Pulse Rate 61 70 60 Respiratory Rate 25 H 20 21 Blood Pressure 196/87 H 176/84 H 161/70 H Pulse Oximetry 96 97 97 03/26/18 01:00 03/26/18 02:00 03/26/18 03:00 Temperature Pulse Rate 88 72 90 Respiratory Rate 26 H Blood Pressure 186/79 H Pulse Oximetry 100 03/26/18 04:00 03/26/18 05:00 03/26/18 06:00 Temperature 97.5 F L Pulse Rate 64 68 87 Respiratory Rate 12 Blood Pressure 191/80 H Pulse Oximetry 97 03/26/18 09:40 Temperature Pulse Rate Respiratory Rate Blood Pressure Pulse Oximetry 97 Intake & Output 03/25/18 03/26/18 03/26/18 18:59 06:59 18:59 Intake Total 1000 / 1000 1840 / 1840 1000 / 1000 Output Total 600 / 600 600 / 600 Balance 400 / 400 1240 / 1240 1000 / 1000 Weight 72.5 kg Intake: IV 1000 / 1000 1000 / 1000 1000 / 1000 NS Inj 1,000 ML @ 70 mls/hr IV. 1000 / 1000 1000 / 1000 1000 / 1000 CONT .[id number] [facility] Rx#:[id number] Oral 0 / 0 Other 840 / 840 Output: Urine Amount (Catheter) 600 / 600 600 / 600 Female External 600 / 600 600 / 600 Other: # Voids 3 # Incontinent Voids 3 3 Date of Last Bowel Movement 03/23/18 # Bowel Movements 0 0 - Constitutional no acute distress - Routine HEENT Exam ENT: Present: mucous membranes moist - Routine Respiratory Exam Present: CTA bilaterally - Routine Cardiovascular Exam Present: S1, S2 - Routine Abdominal Exam Present: soft, normoactive bowel sounds - Routine Extremities Exam Present: pulses intact - Routine Skin Exam Present: dry, warm - Routine Neurological Exam Present: alert - Urinary Catheter Management Straight Cath placed during this visit: yes, but has since been removed by the nurse Reason for continuing: Decision to DC catheter Insertion date: 03/22/18 Insertion time: 07:10 Removal date: 03/22/18 Removal time: 07:11 Female External Cath placed during this visit: no Assessment and Plan - Assessment (1) Acute ischemic stroke Code(s): I63.9 - Cerebral infarction, unspecified Status: Acute Plan: F/U Neuro W/U and recommendations. No change except appears more alert. Still aphasic and not eating due to risk of aspiration. (2) Right hemiparesis Code(s): G81.91 - Hemiplegia, unspecified affecting right dominant side Status : Acute Plan: Refer to therapy assessment and recommendations (3) Parkinson disease Code(s): G20 - Parkinson's disease Status: Chronic Plan: Tx per Neuro (4) Hypertension Code(s): I10 - Essential (primary) hypertension Status: Chronic Plan: Tolerating HTN presently S/P CVA - Assessment and Plan admission neurological consult anticoagulate when stable control htn 03/23/18- Seen this am daughter at bedside. She voices they are still wanting aggressive care at this time. Patient has been seen by ST and it is recommended she remans NPO. Discussed peg placement, family wishes to proceed with feeding tube. Referral made. VSS afebrile. Neurology following. 03/24/18 - Apparently GI was not able to get in contact with daughter last night to get permission for PEG. Will cont to support and PEG when permit signed. Will need transfer back to SNF when Neuro W/U complete and PEG placed. 03/24/18 - She had tachycardia yesterday and Cards saw this AM. No recurrence and no new orders. Psych eval done and history of schizophrenia reviewed. Holding Psych meds at this time. GI has signed off as daughter refused to sign for PEG. Hospice saw her but her daughter is undecided at this time. Discussed with CM and if she is going on Hospice with comfort care, we can D/C back to SNF ; but again the daughter is undecided. Will cont to support and await daughter' s decision about care and placement. 03/26/18 Seen this am no family st bedside. She is non verbal, appears comfortable. per notes family has declined Peg tube. She is NPO, IVF switched to D5 1/2ns. Potassium low this am, Potassium protocol ordered. Patient being followed by Hospice. BP in systolic 200, Prn hydralazine given. DC to snf with Hospice, if family agrees. (4) Hypertension Qualifiers: Hypertension type: essential hypertension Qualified Code(s): I10 - Essential (primary) hypertension
[2018-03-26] MEDS: Nystatin Liq 500,000 UNIT/5 ML UDC SWISH-SWAL SCH ×3 (12:54→20:52)
[2018-03-26] MEDS: hydrALAZINE HCl Inj 20 MG/ML Vial IV.PUSH PRN ×2 (12:54→18:50)
[2018-03-26] MEDS ORDERED: Morphine Sulfate Inj 2 MG/ML Vial IV.PUSH ONE (17:30)
[2018-03-27] MEDS: hydrALAZINE HCl Inj 20 MG/ML Vial IV.PUSH PRN ×3 (00:38→19:06)
[2018-03-27] MEDS: Chlorhexidine Gluconate 2% 1 Pack (2 Cloths) TOPICAL SCH (03:57)
[2018-03-27] MEDS: Aspirin 300 MG Supp RECTAL SCH (09:30)
[2018-03-27] MEDS: Famotidine PF Inj 20 MG/2 ML Vial IV.PUSH SCH ×2 (09:32→20:17)
[2018-03-27] MEDS: Nystatin Liq 500,000 UNIT/5 ML UDC SWISH-SWAL SCH ×4 (09:32→20:17)
[2018-03-27] MEDS: Petrolatum 49%/Zinc Oxide 15% Barrier Oint 120 GM Tube TOPICAL SCH (09:33)
[2018-03-27] MEDS: Dextrose 5% in Water Inj 1,000 ML IV.CONT SCH ×2 (09:35→23:41)
--- NOTE | 2018-03-27 12:13 | P.PNFP ---
Subjective Interval history: Seen this am, nurse at bedside She is alert, follows commands denies pain when asked. Appears comfortable Results - Labs Result diagrams: 03/26/18 06:35 03/26/18 06:35 Physical Exam Vital signs: Vital Signs 03/26/18 13:00 03/26/18 13:59 03/26/18 14:00 Temperature Pulse Rate 73 96 H 87 Respiratory Rate 25 H 20 20 Blood Pressure 183/78 H 150/64 H 137/63 Pulse Oximetry 97 81 L 83 L 03/26/18 15:00 03/26/18 16:00 03/26/18 16:24 Temperature Pulse Rate 82 87 77 Respiratory Rate 20 22 16 Blood Pressure 175/73 H 172/70 H Pulse Oximetry 97 100 99 03/26/18 17:00 03/26/18 18:00 03/26/18 18:05 Temperature Pulse Rate 75 83 88 Respiratory Rate 18 17 19 Blood Pressure 177/72 H 204/79 H 194/88 H Pulse Oximetry 96 95 97 03/26/18 18:35 03/26/18 19:00 03/26/18 19:36 Temperature Pulse Rate 69 85 Respiratory Rate 19 19 Blood Pressure 180/75 H 158/67 H Pulse Oximetry 97 97 98 03/26/18 20:00 03/26/18 21:00 03/26/18 22:00 Temperature 97.9 F Pulse Rate 84 82 90 Respiratory Rate 14 18 Blood Pressure 130/60 149/66 H 166/70 H Pulse Oximetry 97 97 96 03/26/18 23:00 03/26/18 23:06 03/27/18 00:00 Temperature 98.0 F Pulse Rate 93 H 90 93 H Respiratory Rate 18 21 Blood Pressure 178/74 H 174/74 H 194/82 H Pulse Oximetry 94 L 96 100 03/27/18 00:08 03/27/18 01:00 03/27/18 02:00 Temperature Pulse Rate 94 H 108 H 76 Respiratory Rate 18 18 Blood Pressure 210/90 H 155/68 H 138/62 Pulse Oximetry 97 95 94 L 03/27/18 03:00 03/27/18 04:00 03/27/18 05:00 Temperature 97.9 F Pulse Rate 92 H 90 71 Respiratory Rate 16 13 12 Blood Pressure 162/71 H 140/62 126/57 L Pulse Oximetry 97 96 93 L 03/27/18 06:00 12/18/18 07:52 Temperature Pulse Rate 68 Respiratory Rate 12 Blood Pressure 139/64 Pulse Oximetry 94 L 96 Intake & Output 03/26/18 03/27/18 03/27/18 18:59 06:59 18:59 Intake Total 1100 / 1100 1000 / 1000 900 / 900 Output Total 200 / 200 Balance 900 / 900 1000 / 1000 900 / 900 Weight 73.1 kg Intake: IV 1100 / 1100 1000 / 1000 900 / 900 D5W Inj 1,000 ML @ 84 mls/hr IV 1000 / 1000 900 / 900 .CONT .[id number] [facility] Rx#:[id number] NS Inj 1,000 ML @ 70 mls/hr IV. 1000 / 1000 CONT .[id number] [facility] Rx#:[id number] KCl 20 mEq Premix Inj 20 meq In 100 / 100 100 ml @ 50 mls/hr IV.SIG Q2H [facility] Rx#:[id number] Oral 0 / 0 Output: Urine Amount (Catheter) 200 / 200 Female External 200 / 200 Other: # Voids 1 # Incontinent Voids 4 3 Date of Last Bowel Movement 03/23/18 03/25/18 # Bowel Movements 0 0 - Constitutional no acute distress - Routine HEENT Exam ENT: Present: mucous membranes moist - Routine Respiratory Exam Present: CTA bilaterally - Routine Cardiovascular Exam Present: S1, S2 - Routine Abdominal Exam Present: soft - Routine Skin Exam Present: dry, warm - Routine Neurological Exam Present: alert - Urinary Catheter Management Straight Cath placed during this visit: yes, but has since been removed by the nurse Reason for continuing: Decision to DC catheter Insertion date: 03/22/18 Insertion time: 07:10 Removal date: 03/22/18 Removal time: 07:11 Female External Cath placed during this visit: no Assessment and Plan - Assessment (1) Acute ischemic stroke Code(s): I63.9 - Cerebral infarction, unspecified Status: Acute Plan: F/U Neuro W/U and recommendations. No change except appears more alert. Still aphasic and not eating due to risk of aspiration. (2) Right hemiparesis Code(s): G81.91 - Hemiplegia, unspecified affecting right dominant side Status : Acute Plan: Refer to therapy assessment and recommendations (3) Parkinson disease Code(s): G20 - Parkinson's disease Status: Chronic Plan: Tx per Neuro (4) Hypertension Code(s): I10 - Essential (primary) hypertension Status: Chronic Plan: Tolerating HTN presently S/P CVA - Assessment and Plan admission neurological consult anticoagulate when stable control htn 03/23/18- Seen this am daughter at bedside. She voices they are still wanting aggressive care at this time. Patient has been seen by ST and it is recommended she remans NPO. Discussed peg placement, family wishes to proceed with feeding tube. Referral made. VSS afebrile. Neurology following. 03/24/18 - Apparently GI was not able to get in contact with daughter last night to get permission for PEG. Will cont to support and PEG when permit signed. Will need transfer back to SNF when Neuro W/U complete and PEG placed. 03/24/18 - She had tachycardia yesterday and Cards saw this AM. No recurrence and no new orders. Psych eval done and history of schizophrenia reviewed. Holding Psych meds at this time. GI has signed off as daughter refused to sign for PEG. Hospice saw her but her daughter is undecided at this time. Discussed with CM and if she is going on Hospice with comfort care, we can D/C back to SNF ; but again the daughter is undecided. Will cont to support and await daughter' s decision about care and placement. 03/26/18 Seen this am no family st bedside. She is non verbal, appears comfortable. per notes family has declined Peg tube. She is NPO, IVF switched to D5 1/2ns. Potassium low this am, Potassium protocol ordered. Patient being followed by Hospice. BP in systolic 200, Prn hydralazine given. DC to snf with Hospice, if family agrees. 03/27/18- Alert this am no family at bedside. She has been having issues with elevated BP, started on catapres patch as she is NPO. She has responded well. B /p better controlled. Dc plan undecided, No peg wanted per family she is DNR. She has not been eating. Hospice pending. She is from [facility]. Will transfer to [facility], to follow up dc plan fro return to [facility] w/ Hospice (4) Hypertension Qualifiers: Hypertension type: essential hypertension Qualified Code(s): I10 - Essential (primary) hypertension
--- NOTE | 2018-03-27 15:59 | P.CONURO ---
History of Present Illness Service: Urology Consult date: 03/27/18 Requesting Physician: Karen Fonseca Reason for Consult: Interstim evaluation Primary Care Provider: Donavon Monsalve DO Chief Complaint: Acute right-sided weakness and aphasia History of Present Illness: The patient is an 87 year old female with past medical history significant for history of dementia, Parkinson's disease, hypertension, hypothyroidism who presented to the Emergency Department as a stroke alert. Patient was last seen normal around midnight. Presented with complaints of aphasia and right hemiparesis. A stat CT of the head showed Left temporoparietal hypodensity indicating ischemic infarct. CT perfusion study and CT angiograms of head and neck were unremarkable. Patient was out of TPA window. Neurology Dr. Vega was consulted who recommended conservative management with aspirin and permissive hypertension. She is aphasic at this time and daughter helps with history Patient continues to have right hemiparesis. She has an Interstim for 10years, battery was changed in July 2017 She is using it due to her h/o retention, placed by Urology at [place] [facility]. 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, [employer]) Dementia GERD (gastroesophageal reflux disease) HBP (high blood pressure) History of MRSA infection Onset Date: ~03/22/18 Hypothyroidism Parkinson disease Schizophrenia - Surgical History Surgical History: Surgical History (Last Reviewed 03/26/18 @ 09:09 by Gerri Cullen) History of bladder surgery - Tobacco History Second Hand Smoke Exposure: No Tobacco Use In Past 30 Days: No Smoking Status: Never smoker - Alcohol History How Often Do You Have a Drink Containing Alcohol: Never - Substance Use History Substance History: No History of Abuse - Travel History Recent Travel in the [place] Within the Last 8 Weeks: No Recent Travel Out of the Country Within the Last 8 Weeks: No - Immunization History Tetanus Immunization: Unsure Hx Influenza Vaccine This Season: Unable to Assess Medications and Allergies Active Medications: Active Medications Albuterol (Duoneb Neb (Prn)) 1 ampul NEB Q2HR NEB PRN PRN Reason: WHEEZING Aspirin (Aspirin Supp) 300 mg RECTAL DAILY [facility] Last Admin: 03/27/18 09:30 Dose: 300 mg Bisacodyl (Dulcolax Supp) 10 mg RECTAL DAILY PRN PRN Reason: SEVERE CONSITIPATION Chlorhexidine Gluconate (Chlorhexidine 2% Cloth) 3 pack TOPICAL DAILY@0400 [facility] Stop: 03/28/18 03:59 Last Admin: 03/27/18 03:57 Dose: 3 pack Chlorhexidine Gluconate (Chlorhexidine 2% Cloth) 3 pack TOPICAL DAILY@0400 PRN PRN Reason: Extra cloth needed Stop: 03/28/18 03:59 Clonidine HCl (Catapress-Tts 0.1 Mg Patch.7d) 0.1 patch T-DERMAL Q7D [facility] Last Admin: 03/27/18 01:12 Dose: 0.1 patch Enalaprilat (Vasotec Inj) 2.5 mg IV.PUSH Q4H PRN PRN Reason: SBP > 165 Famotidine (Pepcid Pf Inj) 20 mg IV.PUSH Q12HR [facility] Last Admin: 03/27/18 09:32 Dose: 20 mg Fentanyl (Duragesic 25 Mcg Patch.72hr) 1 patch T-DERMAL Q3D [facility] Last Admin: 03/27/18 01:12 Dose: 1 patch Hydralazine HCl (Apresoline Inj) 10 mg IV.PUSH Q6H PRN PRN Reason: SBP>160, AND DBP>90 Last Admin: 03/27/18 09:33 Dose: 10 mg Cefazolin Sodium/Dextrose (Ancef 1 Gm Premix Inj) 1 gm in 50 mls @ 100 mls/hr IV.SIG BL[employer] [facility] Magnesium Sulfate 4 gm/ Sodium (Chloride) 100 mls @ 50 mls/hr IV.SIG UNSCH PRN PRN Reason: For Magnesium 0.9 - 1.1 mg/dL Magnesium Sulfate 2 gm/ Sodium (Chloride) 100 mls @ 50 mls/hr IV.SIG UNSCH PRN PRN Reason: For Magnesium 1.2 - 1.6 mg/dL Potassium Chloride (Kcl 20 Meq Premix Inj) 20 meq in 100 mls @ 50 mls/hr IV.SIG Q2H PRN PRN Reason: For Potassium 3.3 - 3.5 mEq/L Last Infusion: 12/17/18 16:21 Dose: Infused Potassium Chloride (Kcl 40 Meq Premix Inj) 40 meq in 100 mls @ 25 mls/hr IV.SIG UNSCH PRN PRN Reason: For Potassium 3.3 - 3.5 mEq/L Potassium Chloride (Kcl 20 Meq Premix Inj) 20 meq in 100 mls @ 50 mls/hr IV.SIG Q2H PRN PRN Reason: For Potassium 2.8 - 3.2 mEq/L Potassium Phosphate 30 mmol/ (Sodium Chloride) 260 mls @ 42 mls/hr IV.SIG UNSCH PRN PRN Reason: SEE LABEL COMMENTS Sodium Phosphate 30 mmol/ (Sodium Chloride) 260 mls @ 42 mls/hr IV.SIG UNSCH PRN PRN Reason: For Phosphorus < 2.5 mg/dL Potassium Chloride (Kcl 40 Meq Premix Inj) 40 meq in 100 mls @ 25 mls/hr IV.SIG Q2H PRN PRN Reason: For Potassium 2.8 - 3.2 mEq/L Dextrose (D5w Inj) 1,000 mls @ 84 mls/hr IV.CONT .[id number] [facility] Last Admin: 03/27/18 09:35 Dose: 84 mls/hr Magnesium Oxide (Mag-Ox) 800 mg PO UNSCH PRN PRN Reason: For Magnesium 1.2 - 1.6 mg/dL Nystatin (Mycostatin Liq) 5 ml SWISH-SWAL QID [facility] Last Admin: 03/27/18 14:38 Dose: 5 ml Patch Removal (Remove Old Patch) 1 each T-DERMAL Q7D [facility] Patch Removal (Remove Old Patch) 1 each T-DERMAL Q3D [facility] Petrolatum/Zinc Oxide (Sensi-Care Protective Barrier Oint) 1 applicatio TOPICAL DAILY [facility] Last Admin: 03/27/18 09:33 Dose: 1 applicatio Potassium Bicarb/Potassium Chloride (K-Lyte Cl Eff) 50 meq PO UNSCH PRN PRN Reason: For Potassium 3.3 - 3.5 mEq/L Potassium Phosphate (K-Phos Original) 2,000 mg PO Q4H PRN PRN Reason: Phosphorus Less Than 2.5 mg/dL Potassium Phosphate (K-Phos Original) 2,000 mg PO UNSCH PRN PRN Reason: SEE LABEL COMMENTS Sodium Chloride (Ns Flush) 2 ml IV.FLUSH BID [facility] Last Admin: 03/27/18 09:33 Dose: 2 ml Sodium Chloride (Ns Flush) 2 ml IV.FLUSH PRN PRN PRN Reason: FLUSH AFTER USING IV ACCESS Allergies Allergy/AdvReac Type Severity Reaction Status Date / Time No Known Allergies Allergy Verified 03/22/18 06:59 Home Medications Medication Instructions Recorded Confirmed Type amlodipine [Norvasc] 2.5 mg PO DAILY 03/22/18 03/22/18 History benztropine 0.5 mg PO BID 03/22/18 03/22/18 History donepezil 10 mg PO DAILY 03/22/18 03/22/18 History furosemide [Lasix] 40 mg PO DAILY 03/22/18 03/22/18 History lurasidone [Latuda] 120 mg PO DAILY 03/22/18 03/22/18 History melatonin 3 mg PO HS 03/22/18 03/22/18 History memantine [Namenda XR] 14 mg PO DAILY 03/22/18 03/22/18 History omeprazole 20 mg PO DAILY 03/22/18 03/22/18 History potassium chloride [Klor-Con 10] 10 meq PO DAILY 03/22/18 03/22/18 History Physical Exam Vital Signs - 24 hr 03/26/18 16:00 03/26/18 16:24 03/26/18 17:00 Temperature Pulse Rate 87 77 75 Respiratory Rate 22 16 18 Blood Pressure 172/70 H 177/72 H Pulse Oximetry 100 99 96 03/26/18 18:00 03/26/18 18:05 03/26/18 18:35 Temperature Pulse Rate 83 88 69 Respiratory Rate 17 19 19 Blood Pressure 204/79 H 194/88 H 180/75 H Pulse Oximetry 95 97 97 03/26/18 19:00 03/26/18 19:36 03/26/18 20:00 Temperature 97.9 F Pulse Rate 85 84 Respiratory Rate 19 14 Blood Pressure 158/67 H 130/60 Pulse Oximetry 97 98 97 03/26/18 21:00 03/26/18 22:00 03/26/18 23:00 Temperature Pulse Rate 82 90 93 H Respiratory Rate 18 18 Blood Pressure 149/66 H 166/70 H 178/74 H Pulse Oximetry 97 96 94 L 03/26/18 23:06 03/27/18 00:00 03/27/18 00:08 Temperature 98.0 F Pulse Rate 90 93 H 94 H Respiratory Rate 21 Blood Pressure 174/74 H 194/82 H 210/90 H Pulse Oximetry 96 100 97 03/27/18 01:00 03/27/18 02:00 03/27/18 03:00 Temperature Pulse Rate 108 H 76 92 H Respiratory Rate 18 18 16 Blood Pressure 155/68 H 138/62 162/71 H Pulse Oximetry 95 94 L 97 03/27/18 04:00 03/27/18 05:00 03/27/18 06:00 Temperature 97.9 F Pulse Rate 90 71 68 Respiratory Rate 13 12 12 Blood Pressure 140/62 126/57 L 139/64 Pulse Oximetry 96 93 L 94 L 03/27/18 07:00 03/27/18 07:52 03/27/18 08:00 Temperature 98.7 F Pulse Rate 73 118 H Respiratory Rate 12 31 H Blood Pressure 133/59 L 131/82 Pulse Oximetry 94 L 96 95 03/27/18 09:00 03/27/18 09:09 03/27/18 09:40 Temperature Pulse Rate 76 88 73 Respiratory Rate 19 15 12 Blood Pressure 175/75 H 124/58 L Pulse Oximetry 94 L 93 L 93 L 03/27/18 10:00 03/27/18 10:30 03/27/18 11:00 Temperature Pulse Rate 72 85 83 Respiratory Rate 12 12 19 Blood Pressure 125/61 137/62 141/64 H Pulse Oximetry 94 L 96 95 03/27/18 12:00 03/27/18 14:00 Temperature 98.3 F Pulse Rate 65 70 Respiratory Rate 12 Blood Pressure 139/61 Pulse Oximetry 95 Physical Exam: Aphasic RRR Clear lungs interstim is in place Result Diagrams: 03/26/18 06:35 03/26/18 06:35 Imaging: ITS Impressions Carotid Doppler Study 03/22/18 00:00 CONCLUSION: Limited but negative examination for a hemodynamically significant carotid stenosis. Lonnie Reese MD FACR Chest X-Ray 03/22/18 06:57 CONCLUSION: No evidence of acute cardiopulmonary process. Head CT 03/22/18 06:57 CONCLUSION: 1. Left temporoparietal hypodensity characteristic of a nonhemorrhagic infarct 2. Aging brain with generalized volume loss and chronic ischemic white matter changes. 3. No significant mass effect. Report called by Dr. Stuart to Dr. Fuentes at 720. Head CTA 03/22/18 06:57 CONCLUSION: No evidence of proximal MCA occlusion or filling defect. Report was called by [Dr. Stuart to Dr. Vega at 750. ] Neck CTA 03/22/18 06:57 CONCLUSION: 1. Nearly nondiagnostic CTA examination due to suboptimal contrast administration following infiltration of patient's IV line. 2. There is very minimal atherosclerotic plaque involving the arch and left carotid bulb. The carotid and vertebral arteries appear grossly patent. CT CAD 03/22/18 07:05 CONCLUSION: Physiological brain perfusion parameters with RAPID analysis as above. The decision for consideration of therapy is multi factorial and multi disciplinary relying on subjective and objective clinical data. This data is not construed or intended to be the sole determinant of treatment eligibility. Assessment and Plan - Plan - Continue management as per primary team - No issues with Interstim, it was not a cause of her symptoms yesterday - In the future for all issues or questions about it contact her Urologist No additional intervention needed Discussed Condition With: Dr Rowe attending
--- NOTE | 2018-03-27 18:45 | P.PNNEU ---
Subjective Subjective Comments: no new c/o Active Medications: Active Medications Albuterol (Duoneb Neb (Prn)) 1 ampul NEB Q2HR NEB PRN PRN Reason: WHEEZING Aspirin (Aspirin Supp) 300 mg RECTAL DAILY [facility] Last Admin: 03/27/18 09:30 Dose: 300 mg Bisacodyl (Dulcolax Supp) 10 mg RECTAL DAILY PRN PRN Reason: SEVERE CONSITIPATION Chlorhexidine Gluconate (Chlorhexidine 2% Cloth) 3 pack TOPICAL DAILY@0400 [facility] Stop: 03/28/18 03:59 Last Admin: 03/27/18 03:57 Dose: 3 pack Chlorhexidine Gluconate (Chlorhexidine 2% Cloth) 3 pack TOPICAL DAILY@0400 PRN PRN Reason: Extra cloth needed Stop: 03/28/18 03:59 Clonidine HCl (Catapress-Tts 0.1 Mg Patch.7d) 0.1 patch T-DERMAL Q7D [facility] Last Admin: 03/27/18 01:12 Dose: 0.1 patch Enalaprilat (Vasotec Inj) 2.5 mg IV.PUSH Q4H PRN PRN Reason: SBP > 165 Famotidine (Pepcid Pf Inj) 20 mg IV.PUSH Q12HR [facility] Last Admin: 03/27/18 09:32 Dose: 20 mg Fentanyl (Duragesic 25 Mcg Patch.72hr) 1 patch T-DERMAL Q3D [facility] Last Admin: 03/27/18 01:12 Dose: 1 patch Hydralazine HCl (Apresoline Inj) 10 mg IV.PUSH Q6H PRN PRN Reason: SBP>160, AND DBP>90 Last Admin: 03/27/18 09:33 Dose: 10 mg Cefazolin Sodium/Dextrose (Ancef 1 Gm Premix Inj) 1 gm in 50 mls @ 100 mls/hr IV.SIG [employer]PER [facility] Magnesium Sulfate 4 gm/ Sodium (Chloride) 100 mls @ 50 mls/hr IV.SIG UNSCH PRN PRN Reason: For Magnesium 0.9 - 1.1 mg/dL Magnesium Sulfate 2 gm/ Sodium (Chloride) 100 mls @ 50 mls/hr IV.SIG UNSCH PRN PRN Reason: For Magnesium 1.2 - 1.6 mg/dL Potassium Chloride (Kcl 20 Meq Premix Inj) 20 meq in 100 mls @ 50 mls/hr IV.SIG Q2H PRN PRN Reason: For Potassium 3.3 - 3.5 mEq/L Last Infusion: 03/26/18 16:21 Dose: Infused Potassium Chloride (Kcl 40 Meq Premix Inj) 40 meq in 100 mls @ 25 mls/hr IV.SIG UNSCH PRN PRN Reason: For Potassium 3.3 - 3.5 mEq/L Potassium Chloride (Kcl 20 Meq Premix Inj) 20 meq in 100 mls @ 50 mls/hr IV.SIG Q2H PRN PRN Reason: For Potassium 2.8 - 3.2 mEq/L Potassium Phosphate 30 mmol/ (Sodium Chloride) 260 mls @ 42 mls/hr IV.SIG UNSCH PRN PRN Reason: SEE LABEL COMMENTS Sodium Phosphate 30 mmol/ (Sodium Chloride) 260 mls @ 42 mls/hr IV.SIG UNSCH PRN PRN Reason: For Phosphorus < 2.5 mg/dL Potassium Chloride (Kcl 40 Meq Premix Inj) 40 meq in 100 mls @ 25 mls/hr IV.SIG Q2H PRN PRN Reason: For Potassium 2.8 - 3.2 mEq/L Dextrose (D5w Inj) 1,000 mls @ 84 mls/hr IV.CONT .[id number] [facility] Last Admin: 03/27/18 09:35 Dose: 84 mls/hr Magnesium Oxide (Mag-Ox) 800 mg PO UNSCH PRN PRN Reason: For Magnesium 1.2 - 1.6 mg/dL Nystatin (Mycostatin Liq) 5 ml SWISH-SWAL QID [facility] Last Admin: 03/27/18 18:24 Dose: 5 ml Patch Removal (Remove Old Patch) 1 each T-DERMAL Q7D [facility] Patch Removal (Remove Old Patch) 1 each T-DERMAL Q3D [facility] Petrolatum/Zinc Oxide (Sensi-Care Protective Barrier Oint) 1 applicatio TOPICAL DAILY [facility] Last Admin: 03/27/18 09:33 Dose: 1 applicatio Potassium Bicarb/Potassium Chloride (K-Lyte Cl Eff) 50 meq PO UNSCH PRN PRN Reason: For Potassium 3.3 - 3.5 mEq/L Potassium Phosphate (K-Phos Original) 2,000 mg PO Q4H PRN PRN Reason: Phosphorus Less Than 2.5 mg/dL Potassium Phosphate (K-Phos Original) 2,000 mg PO UNSCH PRN PRN Reason: SEE LABEL COMMENTS Sodium Chloride (Ns Flush) 2 ml IV.FLUSH BID [facility] Last Admin: 03/27/18 09:33 Dose: 2 ml Sodium Chloride (Ns Flush) 2 ml IV.FLUSH PRN PRN PRN Reason: FLUSH AFTER USING IV ACCESS Allergies/Adverse Reactions: Allergies Allergy/AdvReac Type Severity Reaction Status Date / Time No Known Allergies Allergy Verified 03/22/18 06:59 Physical Exam Vital signs: Vital Signs 03/26/18 19:00 03/26/18 19:36 03/26/18 20:00 Temperature 97.9 F Pulse Rate 85 84 Respiratory Rate 19 14 Blood Pressure 158/67 H 130/60 Pulse Oximetry 97 98 97 03/26/18 21:00 03/26/18 22:00 03/26/18 23:00 Temperature Pulse Rate 82 90 93 H Respiratory Rate 18 18 Blood Pressure 149/66 H 166/70 H 178/74 H Pulse Oximetry 97 96 94 L 03/26/18 23:06 03/27/18 00:00 03/27/18 00:08 Temperature 98.0 F Pulse Rate 90 93 H 94 H Respiratory Rate 21 Blood Pressure 174/74 H 194/82 H 210/90 H Pulse Oximetry 96 100 97 03/27/18 01:00 03/27/18 02:00 03/27/18 03:00 Temperature Pulse Rate 108 H 76 92 H Respiratory Rate 18 18 16 Blood Pressure 155/68 H 138/62 162/71 H Pulse Oximetry 95 94 L 97 03/27/18 04:00 03/27/18 05:00 03/27/18 06:00 Temperature 97.9 F Pulse Rate 90 71 68 Respiratory Rate 13 12 12 Blood Pressure 140/62 126/57 L 139/64 Pulse Oximetry 96 93 L 94 L 03/27/18 07:00 03/27/18 07:52 03/27/18 08:00 Temperature 98.7 F Pulse Rate 73 118 H Respiratory Rate 12 31 H Blood Pressure 133/59 L 131/82 Pulse Oximetry 94 L 96 95 03/27/18 09:00 03/27/18 09:09 03/27/18 09:40 Temperature Pulse Rate 76 88 73 Respiratory Rate 19 15 12 Blood Pressure 175/75 H 124/58 L Pulse Oximetry 94 L 93 L 93 L 03/27/18 10:00 03/27/18 10:30 03/27/18 11:00 Temperature Pulse Rate 72 85 83 Respiratory Rate 12 12 19 Blood Pressure 125/61 137/62 141/64 H Pulse Oximetry 94 L 96 95 03/27/18 12:00 03/27/18 14:00 Temperature 98.3 F Pulse Rate 65 70 Respiratory Rate 12 Blood Pressure 139/61 Pulse Oximetry 95 Intake & Output 03/26/18 03/27/18 03/27/18 18:59 06:59 18:59 Intake Total 1100 / 1100 1000 / 1000 900 / 900 Output Total 200 / 200 Balance 900 / 900 1000 / 1000 900 / 900 Weight 73.1 kg 74.843 kg Intake: IV 1100 / 1100 1000 / 1000 900 / 900 D5W Inj 1,000 ML @ 84 mls/hr IV 1000 / 1000 900 / 900 .CONT .[id number] [facility] Rx#:[id number] NS Inj 1,000 ML @ 70 mls/hr IV. 1000 / 1000 CONT .[id number] [facility] Rx#:[id number] KCl 20 mEq Premix Inj 20 meq In 100 / 100 100 ml @ 50 mls/hr IV.SIG Q2H [facility] Rx#:[id number] Oral 0 / 0 Output: Urine Amount (Catheter) 200 / 200 Female External 200 / 200 Other: # Voids 1 # Incontinent Voids 4 3 Date of Last Bowel Movement 03/23/18 03/25/18 03/23/18 # Bowel Movements 0 0 Weight On Admission 74.843 kg - Routine Neurological Exam alert. Expressive aphasia. Follow only simple commands CN right upper motor neuron 7 palsey MOTOR 3/5 RUE and RLE. 5/5 LUE and LLE - Urinary Catheter Management Straight Cath placed during this visit: yes, but has since been removed by the nurse Reason for continuing: Decision to DC catheter Insertion date: 03/22/18 Insertion time: 07:10 Removal date: 03/22/18 Removal time: 07:11 Female External Cath placed during this visit: no Review/Management - Review/Management Plan: let hemisphere cva--continue asa
[2018-03-28 05:09] LABS: Hematocrit 38.5 % (35.0-46.0); Hemoglobin 13.2 gm/dL (11.6-15.3); Mean Corpuscular HGB Conc 34.3 % (32.0-36.0); Mean Corpuscular Hemoglobin 30.1 pg (27.0-34.0); Mean Corpuscular Volume 87.7 fL (80.0-100.0); Mean Platelet Volume 8.1 fL (7.0-11.0); Platelet Count 226 th/mm3 (150-450); Red Blood Count 4.39 mil/mm3 (4.00-5.30); Red Cell Distribution Width 13.3 % (11.6-17.2); White Blood Count 7.4 th/mm3 (4.0-11.0)
[2018-03-28 05:34] LABS: Calcium 8.7 mg/dL (8.5-10.1); Carbon Dioxide 25.3 meq/L (21.0-32.0); Potassium 3.2 meq/L (3.5-5.1)
--- NOTE | 2018-03-28 09:24 | P.PNFP ---
Subjective Interval history: Resting in bed, no apparent distress She is sleepy but arousable attempt to follow commands Results - Labs Result diagrams: 03/28/18 05:02 03/28/18 05:02 Abnormal lab results 03/28/18 Range/Units 05:02 Potassium 3.2 L (3.5-5.1) meq/L Estimated GFR 71 L (>89) mL/min Random Glucose 130 H (74-106) mg/dL Short CBC 03/28/18 Range/Units 05:02 WBC 7.4 (4.0-11.0) th/mm3 Hgb 13.2 (11.6-15.3) gm/dL Hct 38.5 (35.0-46.0) % Plt Count 226 (150-450) th/mm3 BMP 03/28/18 05:02 Sodium 137 Potassium 3.2 L Chloride 106 Carbon Dioxide 25.3 BUN 9 Creatinine 0.77 Calcium 8.7 Physical Exam Vital signs: Vital Signs 03/27/18 09:40 03/27/18 10:00 03/27/18 10:30 Temperature Pulse Rate 73 72 85 Respiratory Rate 12 12 12 Blood Pressure 124/58 L 125/61 137/62 Pulse Oximetry 93 L 94 L 96 03/27/18 11:00 03/27/18 12:00 03/27/18 13:00 Temperature 98.3 F Pulse Rate 83 65 66 Respiratory Rate 19 12 12 Blood Pressure 141/64 H 139/61 143/63 H Pulse Oximetry 95 95 96 03/27/18 14:00 03/27/18 15:00 03/27/18 16:00 Temperature 98.3 F Pulse Rate 95 H 80 96 H Respiratory Rate 12 20 20 Blood Pressure 132/59 L 116/56 L 127/60 Pulse Oximetry 95 95 95 03/27/18 17:00 03/27/18 18:00 03/27/18 18:25 Temperature Pulse Rate 92 H 102 H 82 Respiratory Rate 17 30 H 12 Blood Pressure 154/67 H 111/53 L Pulse Oximetry 95 96 92 L 03/27/18 19:00 03/27/18 19:35 03/27/18 20:00 Temperature 98.4 F Pulse Rate 102 H 103 H 76 Respiratory Rate 21 23 17 Blood Pressure 172/75 H 140/60 105/46 L Pulse Oximetry 95 95 93 L 03/27/18 21:00 03/27/18 22:00 03/27/18 23:00 Temperature Pulse Rate 79 79 80 Respiratory Rate 16 16 14 Blood Pressure 138/59 L 119/54 L 134/61 Pulse Oximetry 93 L 93 L 94 L 03/28/18 00:00 03/28/18 01:00 03/28/18 02:00 Temperature 98.2 F Pulse Rate 101 H 77 75 Respiratory Rate 15 19 14 Blood Pressure 140/80 122/56 L 118/56 L Pulse Oximetry 95 94 L 93 L 03/28/18 03:00 03/28/18 04:00 03/28/18 05:00 Temperature 98.4 F Pulse Rate 74 75 89 Respiratory Rate 12 19 20 Blood Pressure 124/59 L 115/57 L Pulse Oximetry 95 93 L 97 03/28/18 06:00 03/28/18 07:00 03/28/18 08:24 Temperature Pulse Rate 89 64 Respiratory Rate 16 8 L Blood Pressure 155/69 H 132/60 Pulse Oximetry 95 93 L 99 Intake & Output 03/27/18 03/28/18 03/28/18 18:59 06:59 18:59 Intake Total 900 / 900 1000 / 1000 Output Total 300 / 300 200 / 200 Balance 600 / 600 800 / 800 Weight 74.843 kg 72.9 kg Intake: IV 900 / 900 1000 / 1000 D5W Inj 1,000 ML @ 84 mls/hr IV 900 / 900 1000 / 1000 .CONT .[id number] [facility] Rx#:[id number] Oral 0 / 0 Output: Urine 200 / 200 Urine Amount (Catheter) 300 / 300 Female External 300 / 300 Other: # Voids 4 # Incontinent Voids 3 3 Date of Last Bowel Movement 03/25/18 03/23/18 # Bowel Movements 0 Weight On Admission 74.843 kg - Constitutional no acute distress - Routine HEENT Exam ENT: Present: mucous membranes moist - Routine Neck Exam Present: supple - Routine Respiratory Exam Present: CTA bilaterally - Routine Cardiovascular Exam Present: S1, S2 - Routine Abdominal Exam Present: soft, normoactive bowel sounds - Routine Extremities Exam Present: pulses intact - Routine Skin Exam Present: dry, warm - Routine Neurological Exam Present: alert RUE weakness - Detailed Neurological Exam: Coma Scale Verbal Response: Confused - Urinary Catheter Management Straight Cath placed during this visit: yes, but has since been removed by the nurse Reason for continuing: Decision to DC catheter Insertion date: 03/22/18 Insertion time: 07:10 Removal date: 03/22/18 Removal time: 07:11 Female External Cath placed during this visit: no Assessment and Plan - Assessment (1) Acute ischemic stroke Code(s): I63.9 - Cerebral infarction, unspecified Status: Acute Plan: F/U Neuro W/U and recommendations. No change except appears more alert. Still aphasic and not eating due to risk of aspiration. (2) Right hemiparesis Code(s): G81.91 - Hemiplegia, unspecified affecting right dominant side Status : Acute Plan: Refer to therapy assessment and recommendations (3) Parkinson disease Code(s): G20 - Parkinson's disease Status: Chronic Plan: Tx per Neuro (4) Hypertension Code(s): I10 - Essential (primary) hypertension Status: Chronic Plan: B/P better controlled. catapress patch - Assessment and Plan admission neurological consult anticoagulate when stable control htn 03/23/18- Seen this am daughter at bedside. She voices they are still wanting aggressive care at this time. Patient has been seen by ST and it is recommended she remans NPO. Discussed peg placement, family wishes to proceed with feeding tube. Referral made. VSS afebrile. Neurology following. 03/24/18 - Apparently GI was not able to get in contact with daughter last night to get permission for PEG. Will cont to support and PEG when permit signed. Will need transfer back to SNF when Neuro W/U complete and PEG placed. 03/24/18 - She had tachycardia yesterday and Cards saw this AM. No recurrence and no new orders. Psych eval done and history of schizophrenia reviewed. Holding Psych meds at this time. GI has signed off as daughter refused to sign for PEG. Hospice saw her but her daughter is undecided at this time. Discussed with CM and if she is going on Hospice with comfort care, we can D/C back to SNF ; but again the daughter is undecided. Will cont to support and await daughter' s decision about care and placement. 03/26/18 Seen this am no family st bedside. She is non verbal, appears comfortable. per notes family has declined Peg tube. She is NPO, IVF switched to D5 1/2ns. Potassium low this am, Potassium protocol ordered. Patient being followed by Hospice. BP in systolic 200, Prn hydralazine given. DC to snf with Hospice, if family agrees. 03/27/18- Alert this am no family at bedside. She has been having issues with elevated BP, started on catapres patch as she is NPO. She has responded well. B /p better controlled. Dc plan undecided, No peg wanted per family she is DNR. She has not been eating. Hospice pending. [facility] Will transfer to [facility], to follow up dc plan fro return to [facility] w/ Hospice 03/28/18- No new changes, s/p cva with right sided weakness, aphasic. Not eating family has not decided on Hospice or peg. will have st to re eval today for swallow. Orders to transfer to floor. B/P better controlled. If swallow failed and no family decision consider ppn/tpn. Conversation with daughter has been ongoing. (4) Hypertension Qualifiers: Hypertension type: essential hypertension Qualified Code(s): I10 - Essential (primary) hypertension
[2018-03-28] MEDS: Nystatin Liq 500,000 UNIT/5 ML UDC SWISH-SWAL SCH ×4 (09:33→20:47)
[2018-03-28] MEDS: Aspirin 300 MG Supp RECTAL SCH (09:33)
[2018-03-28] MEDS: Petrolatum 49%/Zinc Oxide 15% Barrier Oint 120 GM Tube TOPICAL SCH (09:34)
[2018-03-28] MEDS: Famotidine PF Inj 20 MG/2 ML Vial IV.PUSH SCH ×2 (09:34→20:47)
[2018-03-28] MEDS: Dextrose 5% in Water Inj 1,000 ML IV.CONT SCH ×3 (09:34→22:04)
[2018-03-29] MEDS: hydrALAZINE HCl Inj 20 MG/ML Vial IV.PUSH PRN (04:10)
[2018-03-29] MEDS: Dextrose 5% in Water Inj 1,000 ML IV.CONT SCH ×2 (06:49→10:32)
[2018-03-29] MEDS: Petrolatum 49%/Zinc Oxide 15% Barrier Oint 120 GM Tube TOPICAL SCH (09:00)
[2018-03-29] MEDS: Nystatin Liq 500,000 UNIT/5 ML UDC SWISH-SWAL SCH ×4 (09:00→23:59)
[2018-03-29] MEDS: Aspirin 300 MG Supp RECTAL SCH (09:00)
[2018-03-29] MEDS: Famotidine PF Inj 20 MG/2 ML Vial IV.PUSH SCH ×2 (09:00→23:59)
--- NOTE | 2018-03-29 09:28 | P.PNFP ---
Subjective Interval history: Resting in bed, appears comfortable She is alert, follows some commands on room air Results - Labs Result diagrams: 03/28/18 05:02 03/28/18 05:02 Physical Exam Vital signs: Vital Signs 03/28/18 10:00 03/28/18 11:00 03/28/18 12:00 Temperature 97.7 F Pulse Rate 89 66 79 Respiratory Rate 18 11 L 23 Blood Pressure 151/69 H Pulse Oximetry 98 97 97 03/28/18 13:00 03/28/18 14:00 03/28/18 15:00 Temperature Pulse Rate 90 83 68 Respiratory Rate 22 16 10 L Blood Pressure 148/75 H 119/55 L Pulse Oximetry 96 96 94 L 03/28/18 16:00 03/28/18 17:44 03/28/18 20:00 Temperature 98.4 F 97.5 F L Pulse Rate 95 H 82 93 H Respiratory Rate 16 20 18 Blood Pressure 139/64 179/74 H Pulse Oximetry 96 97 97 03/28/18 21:55 03/29/18 00:00 03/29/18 02:25 Temperature 97.6 F Pulse Rate 96 H 95 H Respiratory Rate 20 19 Blood Pressure 152/84 H 182/75 H Pulse Oximetry 95 96 96 03/29/18 04:00 03/29/18 05:00 03/29/18 09:05 Temperature 98.1 F 98.8 F Pulse Rate 97 H 87 Respiratory Rate 18 16 Blood Pressure 184/84 H 117/55 L Pulse Oximetry 98 93 L 95 03/29/18 09:13 Temperature Pulse Rate Respiratory Rate Blood Pressure Pulse Oximetry 95 Intake & Output 03/28/18 03/29/18 03/29/18 18:59 06:59 18:59 Intake Total 1000 / 1000 1000 / 1000 Balance 1000 / 1000 1000 / 1000 Weight 75 kg 75.8 kg Intake: IV 1000 / 1000 1000 / 1000 D5W Inj 1,000 ML @ 84 mls/hr IV 1000 / 1000 1000 / 1000 .CONT .[id number] [facility] Rx#:[id number] Other: # Incontinent Voids 3 Date of Last Bowel Movement 03/23/18 03/28/18 # Incontinent Bowel Movements 1 - Constitutional no acute distress - Routine HEENT Exam Eye: Present: PERRL ENT: Present: mucous membranes moist - Routine Respiratory Exam Present: CTA bilaterally - Routine Cardiovascular Exam Present: S1, S2 - Routine Abdominal Exam Present: soft, normoactive bowel sounds - Routine Skin Exam Present: dry, warm - Routine Neurological Exam Present: alert - Routine Psychiatric Exam Present: cooperative - Urinary Catheter Management Straight Cath placed during this visit: yes, but has since been removed by the nurse Reason for continuing: Decision to DC catheter Insertion date: 03/22/18 Insertion time: 07:10 Removal date: 03/22/18 Removal time: 07:11 Female External Cath placed during this visit: no Assessment and Plan - Assessment (1) Acute ischemic stroke Code(s): I63.9 - Cerebral infarction, unspecified Status: Acute Plan: F/U Neuro W/U and recommendations. No change except appears more alert, diet ordered for puree, honey thick (2) Right hemiparesis Code(s): G81.91 - Hemiplegia, unspecified affecting right dominant side Status : Acute Plan: Refer to therapy assessment and recommendations (3) Parkinson disease Code(s): G20 - Parkinson's disease Status: Chronic Plan: Tx per Neuro (4) Hypertension Code(s): I10 - Essential (primary) hypertension Status: Chronic Plan: B/P better controlled. catapress patch - Assessment and Plan admission neurological consult anticoagulate when stable control htn 03/23/18- Seen this am daughter at bedside. She voices they are still wanting aggressive care at this time. Patient has been seen by ST and it is recommended she remans NPO. Discussed peg placement, family wishes to proceed with feeding tube. Referral made. VSS afebrile. Neurology following. 03/24/18 - Apparently GI was not able to get in contact with daughter last night to get permission for PEG. Will cont to support and PEG when permit signed. Will need transfer back to SNF when Neuro W/U complete and PEG placed. 03/24/18 - She had tachycardia yesterday and Cards saw this AM. No recurrence and no new orders. Psych eval done and history of schizophrenia reviewed. Holding Psych meds at this time. GI has signed off as daughter refused to sign for PEG. Hospice saw her but her daughter is undecided at this time. Discussed with CM and if she is going on Hospice with comfort care, we can D/C back to SNF ; but again the daughter is undecided. Will cont to support and await daughter' s decision about care and placement. 03/26/18 Seen this am no family st bedside. She is non verbal, appears comfortable. per notes family has declined Peg tube. She is NPO, IVF switched to D5 1/2ns. Potassium low this am, Potassium protocol ordered. Patient being followed by Hospice. BP in systolic 200, Prn hydralazine given. DC to snf with Hospice, if family agrees. 03/27/18- Alert this am no family at bedside. She has been having issues with elevated BP, started on catapres patch as she is NPO. She has responded well. B /p better controlled. Dc plan undecided, No peg wanted per family she is DNR. She has not been eating. Hospice pending. She is from [facility]. Will transfer to tele floor, to follow up dc plan fro return to [facility] w/ Hospice 03/28/18- No new changes, s/p cva with right sided weakness, aphasic. Not eating family has not decided on Hospice or peg. will have st to re eval today for swallow. Orders to transfer to floor. B/P better controlled. If swallow failed and no family decision consider ppn/tpn. Conversation with daughter has been ongoing. 03/29/18- Transferred to medical floor. Diet upgraded yesterday to puree/honey thick. She will be at risk for dehydration. Will keep fluids. Family undecided with hospice/ peg at this time.Will plan to DC tomorrow back to [facility] for rehab, and cont assessment at facility, with calorie count and Pt progression. (4) Hypertension Qualifiers: Hypertension type: essential hypertension Qualified Code(s): I10 - Essential (primary) hypertension
--- NOTE | 2018-03-29 15:33 | P.PNPAL ---
Reason for Visit Reason for visit: a. To assist with evaluation and management of symptoms including: b. To assist medical decision maker(s) with: better understanding of current medical conditions; weighing benefits/burdens of medical treatment options; making medical treatment decisions. Subjective Subjective/Interval History: Pt seen today to follow up on comfort, goals. stable, d/c planning for back to previous SNF skilled vs w hospice services. S/ p multiple ST evaluations, initially tolerated 1 teasp at a time honey thick thick liq plus puree food. ST eval today notes tolerated honey thick and puree little better-- delayed cough with nectar thick, +difficulty managing mech soft foods. Ate 100% of lunch today. +still at risk for aspiration, may need ongoing PO monitoring to ensure she meets caloric and fluid intake needs. Able to take a few steps w PT, gen weakness noted. Fentanyl patch started 03/27 overnight for reported pain/agitation, was removed later in the afternoon / to lethargy per nursing report. Pt seen in room just after nurse completed jackson care for voiding into brief. She is sleeping but arouses easily to verbal. She is oriented to self. She is unable to tell me her daughter's name. She is unable to tell me where she is. She denies pain. She denies shortness of breath. She is cooperative and follows commands. When asked if she is hungry she says no. She resumed sleeping when not stimulated. She does move all 4 extremities with generalized weakness slightly weaker on left. No obvious discomfort, flat. New depends in place already with some new urine present, labia, jackson-region still red with excoriation barrier cream has been applied. Following exam call to patient joe Brown, voicemail left. Family/Friend Interactions: [id number] Daughter Stephanie later called me back. Provided update on current assessment, treatments in place, and discharge planning. Her hospice discharge to facility versus patient rehab will still be dependent on her cognitive ability to participate. Review under hospice services she would not be able to receive ongoing skilled therapy interventions would be comfort focus. Review with her ST following and that patient p.o. tolerance is improving but that she does still remain an aspiration risk and at this point she still needs to be fed so not clear if she will maintain adequate p.o. intake at this time, reviewed that she could however she could also require a feeding tube if she does not maintain adequate p.o. Explore with her ongoing risk for CVA. She has questions about psychiatric meds, advised that at this time psychiatry who was consulted recommended to further review risks/benefits of antipsychotics once patient has recovered from CVA. Review with her that many of the antipsychotics would pose some CVA risk. She voices understanding. At this time she indicates that since she has seen patient with some improvement she would like to continue to support her with pursuing rehabilitation efforts. She feels she is not ready for hospice given she has made some improvements. Advance Directives Documented care wishes:: Living will documents in standard verbiage in the presence of terminal, end- stage, or vegetative condition would not want artificially prolonging measures but would want comfort only. Objective Vital Signs: Vital Signs 03/28/18 16:00 03/28/18 17:44 03/28/18 20:00 Temperature 98.4 F 97.5 F L Pulse Rate 95 H 82 93 H Respiratory Rate 16 20 18 Blood Pressure 139/64 179/74 H Pulse Oximetry 96 97 97 03/28/18 21:55 03/29/18 00:00 03/29/18 02:25 Temperature 97.6 F Pulse Rate 96 H 95 H Respiratory Rate 20 19 Blood Pressure 152/84 H 182/75 H Pulse Oximetry 95 96 96 03/29/18 04:00 03/29/18 05:00 03/29/18 08:00 Temperature 98.1 F 98.8 F 97.3 F L Pulse Rate 97 H 87 78 Respiratory Rate 18 16 20 Blood Pressure 184/84 H 117/55 L 141/63 H Pulse Oximetry 98 93 L 20 L 03/29/18 09:05 03/29/18 09:13 03/29/18 12:00 Temperature 97.9 F Pulse Rate 74 Respiratory Rate 20 Blood Pressure 133/63 Pulse Oximetry 95 95 96 03/29/18 13:13 Temperature Pulse Rate Respiratory Rate 16 Blood Pressure Pulse Oximetry Intake & Output 03/28/18 03/29/18 03/29/18 18:59 06:59 18:59 Intake Total 1000 / 1000 1000 / 1000 1000 / 1000 Balance 1000 / 1000 1000 / 1000 1000 / 1000 Weight 75 kg 75.8 kg Intake: IV 1000 / 1000 1000 / 1000 1000 / 1000 D5W Inj 1,000 ML @ 84 mls/hr IV 1000 / 1000 1000 / 1000 1000 / 1000 .CONT .[id number] [facility] Rx#:[id number] Other: # Voids 1 # Incontinent Voids 3 Date of Last Bowel Movement 03/23/18 03/28/18 03/29/18 # Bowel Movements 1 # Incontinent Bowel Movements 1 Physical Exam: CONSTITUTIONAL/GENERAL: This is an adequately nourished patient, lethargic TUBES/LINES/DRAINS: Peripheral IV right upper extremity, SCDs SKIN: No jaundice, rashes, or lesions. Few areas of ecchymosis to arms. No wounds seen anteriorly. Skin warm and dry. HEAD: Atraumatic. Normocephalic. EYES: Pupils equal and round and reactive. Extraocular motions intact. No scleral icterus. No injection or drainage. Fundi not examined. CARDIOVASCULAR: Regular rate and rhythm without murmur. Peripheral pulses symmetric. RESPIRATORY/CHEST: Symmetric, unlabored respirations.On room air. Clear to auscultation. Breath sounds equal bilaterally. No wheezes, rales, or rhonchi. GASTROINTESTINAL: Abdomen soft, non-tender, nondistended. No palpable masses. No guarding. Bowel sounds present. GENITOURINARY: Without palpable bladder distension. Adult incont brief present. Redness, excoriation to perineum, labia barrier cream in place. NEUROLOGICAL: Awakens easily. Answers some yes/no questions. Oriented to self. Does not answer other questions that require more than yes/no. follows simple commands. Moves 4 extremities w gen weakness, left slightly weaker than right. PSYCHIATRIC: Calm, lethargic. no apparent anxiety Diagnostic Tests Laboratory: Laboratory Results - last 72 hr 03/28/18 03/28/18 05:02 05:02 WBC 7.4 RBC 4.39 Hgb 13.2 Hct 38.5 MCV 87.7 MCH 30.1 MCHC 34.3 RDW 13.3 Plt Count 226 MPV 8.1 Sodium 137 Potassium 3.2 L Chloride 106 Carbon Dioxide 25.3 Anion Gap 6 BUN 9 Creatinine 0.77 Estimated GFR 71 L Random Glucose 130 H Calcium 8.7 Result Diagrams: 03/28/18 05:02 03/28/18 05:02 Assessment and Plan - Disease Oriented Problem List (1) Acute ischemic stroke (2) Right hemiparesis (3) Aphasia (4) Leukocytosis (5) Parkinson disease (6) Dementia (7) Hypertension (8) Schizophrenia (9) Hypothyroidism - Symptom Scale (1) Dyspnea 0-10 Scale: Unable to quantify (2) Dysphagia 0-10 Scale: Unable to quantify (3) Agitation 0-10 Scale: Unable to quantify (4) Weakness 0-10 Scale: Unable to quantify Pertinent Non-Medical Issues: Psychosocial: Patient originally from [place]. Lived in [place] for some years. Has 1 son, 1 estranged from son. Daughter is named healthcare surrogate and POA. She has a long history of schizophrenia, and has not been able to work much of her life secondary to this. 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 HER 2 children were primarily raised by her and his family. Stephanie has reconnected with pt in the past several years while assisting her with caregiving. Spiritual: Jewish Legal:Patient is not capacitated secondary to underlying history of dementia, schizophrenia. Now here with acute stroke. daughter Stephanie has documentation naming her as healthcare surrogate, patient also has living will stating that in the presence of terminal, end-stage or vegetative condition would not want heroic or artificially prolonging measures Ethical issues impacting care: No ethical issues identified Important Contacts: Daughter Stephanie Frank (healthcare surrogate ) gifty [phone] / [phone] Son Tom Frank [phone] . Prognosis: This patient with an underlying history of dementia has had large acute left temporoparietal stroke with significant hemiplegia, aphasia. High risk for aspiration, further complications and sequelae secondary to stroke and advanced age. She has made some improvement during hospital course however remains at risk for further debility. May be appropriate for hospice if goals compatible. Code Status: No Code DNR Plan: * Legal decision maker: patient is not capacitated secondary to underlying history of dementia, schizophrenia. Now here with acute stroke. daughter Stephanie has documentation naming her as healthcare surrogate, patient also has living will stating that in the presence of terminal, end-stage or vegetative condition would not want heroic or artificially prolonging measures * Goals: Goals have been semi aggressive though daughter / healthcare surrogate is open to further discussion as clinical course evolves. Daughter and son have apparently been in discussion regarding transitioning back to SNF with hospice services versus back to SNF with skilled rehabilitation. Voicemail left for her today --[id number] Daughter later called me back at this time goals are aggressive she would pursue skilled rehab placement, though understands the patient high risk for complications/decline. She is not ready for hospice at this time. * CODE STATUS:DNR * SYMPTOMS: --Dysphagia-high risk for aspiration per ST evaluation. Secondary to significant CVA. Ongoing ST evaluation, initially n.p.o. however with some improvement with ongoing evaluations. Now tolerating pured diet with honey thick liquids. Still at risk for aspiration, will need close monitoring of oral intake to ensure meet caloric needs, may still need to consider PEG placement. --Weakness/hemiplegia-significant hemiplegia status post CVA; large acute left temporoparietal stroke . Underlying cognitive deficits are likely to limit success of physical rehabilitation efforts. She is participating with therapies though appears to be lethargic and minimally active between interventions. --Dyspnea-none currently however high risk for aspiration and associated dyspnea, and associated respiratory decline, dyspnea. --Agitation/confusion-patient with underlying history of schizophrenia, Parkinson's, dementia. Now here with acute CVA. Very high risk for agitation, which could contribute to worsening respiratory status, worsening clinical condition. At this point avoid sedatives in order to protect respiratory and airway status. Patient on long-term oral psychiatric meds which are currently not able to be given due to no feeding access and safe way to swallow. Daughter requested psychiatry evaluation to recommend possible substitution for prior schizophrenia Danae , psych has evaluated and discontinued psychiatric medications --Wound-patient with excoriated jackson-skin, some maceration appears to be due to chronic moisture. + petroleum and zinc barrier cream to be applied by nursing. She continues to be incontinent, nursing providing frequent brief changes. No way to fully avoid moisture without invasive urine collection. --No chronic underlying pain syndromes according to daughter. Overnight with reported restlessness/pain, was started on fentanyl patch, the next afternoon was removed by nursing for lethargy. I have d/c fentanyl patch at this time, as would be scheduled to be applied again overnight today 0100, pt prev with lethargy2/2 to. Consider Tylenol 650 PRN, or norco 5 or ultram if pain not relieved by non opiate, due to this pt is opiate naive, advanced age. * Palliative care will continue to follow during hospital course as condition evolves, to assist patient/decision-maker with understanding of medical conditions, weighing benefits/burdens of treatment options, for clarification of goals of treatment. Additionally will assist with any symptoms of palliative concern Attestation Attestation: To help prompt me to consider important information that might be impacting today's encounter and assessment, information from prior notes written by myself or my colleagues may have been "brought forward" into today's note. My signature on this note, however, is an attestation that I personally performed the exam, history, and/or decision-making noted today, and, unless otherwise indicated, the interactions with patient, family, and staff as well as the review of records all occurred today. I also attest that the listed assessment and stated plan reflect my best clinical judgment today based on the combination of historical information, prior notes, and today's exam/ interactions. When time spent is documented, it refers only to time spent today by the signer, or if indicated, combined time spent today by collaborating physician/nurse practitioner.
[2018-03-30] MEDS: hydrALAZINE HCl Inj 20 MG/ML Vial IV.PUSH PRN (05:26)
--- NOTE | 2018-03-30 08:20 | P.DS ---
Date of admission: 03/22/18 08:33 Primary care physician: Donavon Monsalve DO Brief History from admission: The patient is an 87 year old female with past medical history significant for history of dementia, Parkinson's disease, hypertension, hypothyroidism who presented to the Emergency Department as a stroke alert. Patient was last seen normal around midnight. Presented with complaints of aphasia and right hemiparesis. A stat CT of the head showed Left temporoparietal hypodensity indicating ischemic infarct. CT perfusion study and CT angiograms of head and neck were unremarkable. Patient was out of TPA window. Neurology Dr. Vega was consulted who recommended conservative management with aspirin and permissive hypertension. DS: Diagnosis - Discharge Diagnosis (1) Acute ischemic stroke Status: Acute (2) Right hemiparesis Status: Acute (3) Parkinson disease Status: Chronic (4) Hypertension Status: Chronic DS: Summary Hospital Course: The patient is an 87 year old female with past medical history significant for history of dementia, Parkinson's disease, hypertension, hypothyroidism who presented to the Emergency Department as a stroke alert. She was seen by neurology that recommended conservative measures. She was evaluated by ST and NPO was recommended. Gi was consulted for peg tube, Family member decline peg tube. Hospice was called on, family undetermined for DNR or Hospice services. Patient became more alert and diet upgraded to Puree, honey thick. Family would like patient to return to Rehab, and follow progress, meterman plan undetermined. - Time Spent with Patient Total time spent providing and/or coordinating discharge services: 30 Less than 30 minutes - Quality: AMI Clinical Trial Participant: No - Quality: Stroke Last date observed well: 03/21/18 Last time observed well: 10:00 Symptom Onset Unknown: No - Quality: VTE Deep Vein Thrombosis/Pulmonary Embolism Present on Admission: No Exam Vital signs: Vital Signs 03/29/18 09:05 03/29/18 09:13 03/29/18 12:00 Temperature 97.9 F Pulse Rate 74 Respiratory Rate 20 Blood Pressure 133/63 Pulse Oximetry 95 95 96 03/29/18 13:13 03/29/18 16:00 03/29/18 20:00 Temperature 98.4 F 97.4 F L Pulse Rate 84 99 H Respiratory Rate 16 20 20 Blood Pressure 162/68 H 190/77 H Pulse Oximetry 97 95 03/29/18 22:00 03/30/18 00:00 03/30/18 04:00 Temperature 97.5 F L 97.9 F Pulse Rate 97 H 97 H Respiratory Rate 18 20 Blood Pressure 157/68 H 205/93 H Pulse Oximetry 95 96 03/30/18 07:51 Temperature Pulse Rate Respiratory Rate Blood Pressure Pulse Oximetry 96 Intake & Output 03/29/18 03/30/18 03/30/18 18:59 06:59 18:59 Intake Total 1000 / 1000 1000 / 1000 120 / 120 Balance 1000 / 1000 1000 / 1000 120 / 120 Intake: IV 1000 / 1000 1000 / 1000 D5W Inj 1,000 ML @ 84 mls/hr IV 1000 / 1000 1000 / 1000 .CONT .[id number] [facility] Rx#:[id number] Oral 120 / 120 Other: # Voids 1 3 Date of Last Bowel Movement 03/29/18 # Bowel Movements 1 # Incontinent Bowel Movements 3 - Constitutional no acute distress - Routine HEENT Exam Eye: Present: PERRL ENT: Present: mucous membranes moist - Routine Respiratory Exam Present: CTA bilaterally - Routine Cardiovascular Exam Present: S1, S2 - Routine Abdominal Exam Present: soft, normoactive bowel sounds - Routine Extremities Exam Present: pulses intact - Routine Skin Exam Present: dry, warm - Routine Neurological Exam Present: alert, sensory deficit, motor deficit Results Procedures completed during hospitalization: n/a Labs on day of discharge: Labs from last 24 hours 03/29/18 23:53 Stl C.difficile DNA Amp Negative St C. diff Tox Epid 027 Negative - Impressions ITS Impressions Carotid Doppler Study 03/22/18 00:00 CONCLUSION: Limited but negative examination for a hemodynamically significant carotid stenosis. Lonnie Reese MD FACR Chest X-Ray 03/22/18 06:57 CONCLUSION: No evidence of acute cardiopulmonary process. Head CT 03/22/18 06:57 CONCLUSION: 1. Left temporoparietal hypodensity characteristic of a nonhemorrhagic infarct 2. Aging brain with generalized volume loss and chronic ischemic white matter changes. 3. No significant mass effect. Report called by Dr. Stuart to Dr. Fuentes at 720. Head CTA 03/22/18 06:57 CONCLUSION: No evidence of proximal MCA occlusion or filling defect. Report was called by [Dr. Stuart to Dr. Vega at 750. ] Neck CTA 03/22/18 06:57 CONCLUSION: 1. Nearly nondiagnostic CTA examination due to suboptimal contrast administration following infiltration of patient's IV line. 2. There is very minimal atherosclerotic plaque involving the arch and left carotid bulb. The carotid and vertebral arteries appear grossly patent. CT CAD 03/22/18 07:05 CONCLUSION: Physiological brain perfusion parameters with RAPID analysis as above. The decision for consideration of therapy is multi factorial and multi disciplinary relying on subjective and objective clinical data. This data is not construed or intended to be the sole determinant of treatment eligibility. Discharge Plan - Discharge Disposition Patient Disposition: 03 Discharge to SNF - Discharge Condition Condition: Stable - Discharge Order Discharge Orders: Discharge Order (Routine); Ordered 03/30/18 Ordered By: Karen Fonseca ED Use Only Admit Order (Routine); Ordered 03/22/18 Ordered By: Micah Fuentes - Discharge Details Anticipated Discharge Date: 03/30/18 Discharge Comment: [facility]c [facility], - Physicians Team Primary Care Provider: Donavon Monsalve Attending Provider: Donavon Monsalve Other Providers: [facility] ; Donavon Monsalve DO ; Cece Sloan MD ; Mic Vega MD, PhD ; Nhan English MD ; Terese Gordon MD ; Kiran Burr MD ; Oleg Mccord DO ; Patricio Trejo MD ; Babak Rowe MD
[2018-03-30] MEDS: Aspirin 300 MG Supp RECTAL SCH (08:31)
[2018-03-30] MEDS: Famotidine PF Inj 20 MG/2 ML Vial IV.PUSH SCH (08:32)
[2018-03-30] MEDS: Nystatin Liq 500,000 UNIT/5 ML UDC SWISH-SWAL SCH ×2 (08:32→12:56)
[2018-03-30] MEDS: Petrolatum 49%/Zinc Oxide 15% Barrier Oint 120 GM Tube TOPICAL SCH (08:32)
[2018-03-30] MEDS: Dextrose 5% in Water Inj 1,000 ML IV.CONT SCH ×3 (10:04→11:13)
[2018-03-30 10:14] VITALS: RESP 18
[2018-03-30 11:15] VITALS: BP 138/63; PULSE 80; TEMP 97.9; O2SAT 95
[2018-03-30 11:50] LABS: Calcium 8.3 mg/dL (8.5-10.1); Carbon Dioxide 23.4 meq/L (21.0-32.0); Potassium 3.4 meq/L (3.5-5.1)
--- NOTE | 2018-03-30 11:55 | P.PNPAL ---
call from daughter Stephanie before my arrival on pt unit today. She has questions about initial diagnostic done for stroke, initial tx , and risk for further stroke. Review initial diagnostics, workup, findings and tx during initial presentation and early during hospital course, per EMR. Explore with her pt does remain at risk for stroke, multifactorial and recovery may be limited by prev medical comorbidities, age etc. Explore she remains at risk for complications in SNF setting, and she would be able to pursue invasive/ aggressive tx should complication arise, or could elect comfort measures only with hospice services. All questions answered to the best of my ability. It appears pt planned to be d/c to SNF today.
== END 2018-03-30 14:11 ==
LOC: NEPC 06:55 → NEDA 08:33 → N03 10:23 → N05 03-28 16:09
PROVIDERS: ADMIT Family Medicine; ATTEND Family Medicine